=== PATIENT | female | born 1945 | race Caucasian/White ===

== ENCOUNTER → 2018-07-29 09:15 | Outpatient (CLI) | payer MEDICARE, SELFPAY ==
--- NOTE | 2018-07-29 09:20 | MM_ITS ---
MM Dig screening mamm BI w/CAD ORDERING PHYSICIAN : Blane Grullon MD PATIENT AGE: 72 years GENDER: Female COMPARISON: July INDICATION: ITS.REASON: SCREENING. No hormones. No new complaints. Pacemaker upper left breast. Patient reports significant weight loss since prior study. TECHNIQ UE: Standard CC and MLO images were obtained. R2 CAD reviewed. Additionalcc view axillary cc and nipple profile MLO view left breast FINDINGS: Moderately dense breasts for age but no significant new findings. RIGHT BREAST:No new areas of concern LEFT BREAST: Large Pacemaker device projected over the superior left breast. There is bulging of the chest and there is distort breast here. This feature makes positioning/breast imaging difficult but we see no significant change when compared to multiple studies. In the breast tissue is slightly more pronounced superior left breast] appears stable since prior studies. IMPRESSION: ... . Stable bilateral mammogram.. No significant new findings Pacemaker partially obscuring portions of the axillary tail of left breast but overall stable appearance BI-RADS Category: 2 Benign Finding(s) RECOMMENDED FOLLOW-UP: 1YR 1 YEAR FOLLOW-UP (A letter has been sent to the patient regarding results of the study.)
== END ==
PROVIDERS: PCP Family Medicine; Visit Provider Family Medicine
DX: Z12.31 Encounter for screening mammogram for malignant neoplasm of breast (principal)
CPT/HCPCS: 77067

== ENCOUNTER → 2018-09-13 15:42 | Outpatient (CLI) | payer MEDICARE, SELFPAY ==
--- NOTE | 2018-09-13 15:46 | XR_ITS ---
XR chest 2V HISTORY: Cough ITS.REASON: BRONCHITIS ORDERING PHYSICIAN: BEATRIZ Alvarez PATIENT AGE: 72 years COMPARISON: PA and lateral chest 09/30/2009 FINDINGS: The lung joseph are fairly well-expanded. There are stable gross generalized cardiomegaly. The left infraclavicular cardiac device is noted with 3 electrodes unchanged in position from the previous exam. There are subtle ill-defined opacities in the right lower lobe and right infrahilar region. A minimal pneumonic infiltrate cannot be excluded. The right lung field is clear. The left lung base is somewhat obscured by the overlying cardiac pacemaker however the left upper lung field is clear. IMPRESSION: Questionable right lower lobe bronchopneumonia versus confluence of vascular shadows and suggest clinical correlation
== END ==
PROVIDERS: PCP Family Medicine; Visit Provider Physician Assistant
DX: J40 Bronchitis, not specified as acute or chronic (principal)
CPT/HCPCS: 71046

== ENCOUNTER 2019-03-11 10:43 | Inpatient (IN) ==
--- NOTE | 2019-03-11 12:37 | Pharmacy Consult Notes ---
[facility] Pharmacy VTE Monitoring - Patient Demographics Admission date: 03/11/19 Report Date: 03/11/19 Time: 12:37 Allergies/Adverse Reactions: Patient Allergies aspirin Allergy (Severe, Verified 01/27/19 13:14) Difficulty Breathing iodine Allergy (Severe, Verified 01/27/19 13:14) Difficulty Breathing sulfite Allergy (Severe, Verified 01/27/19 13:14) Difficulty Breathing tolmetin Allergy (Severe, Verified 01/27/19 13:14) Difficulty Breathing yellow dye Allergy (Severe, Verified 01/27/19 13:14) Difficulty Breathing cephalexin Allergy (Unknown, Verified 01/27/19 13:14) Hives, Wheezing shellfish derived Allergy (Unknown, Verified 01/27/19 13:14) Difficulty Breathing Height: 1.55 m Weight: 56.387 kg - VTE Risk Was VTE Risk Assessment Performed: No VTE Score: 4 VTE Risk Level: Low Risk - Prophylaxis VTE Prophylaxis Ordered?: Yes Types of VTE Prophylaxis: TEDS Knee High Location of Applied Device: Bilateral Lower Extremeties - VTE Diagnosis Confirmed Treatment or plan recommended: Continue Current Treatment
--- NOTE | 2019-03-11 12:38 | History & Physical Report ---
*Admission Date: 03/11/19 <Olivia Marin 03/11/19 12:53> *Chief complaint: Frequent urination with burning; fever <Olivia Marin 03/11/19 12:53> *History of present illness: Ms. Dorman is a 73-year-old female who has not been feeling well for the past 3 days. On 622 she began to have frequent urination in small amounts with burning and a small amount of hematuria. She then developed a fever. She stayed in the bed and has slept almost continuously for the past 2 days. She has not been eating and drinking very well. She feels as if her bladder is hanging out. She has an appointment with Dr. Ramirez for exam in 2 weeks. That she presented to [facility] evaluation. With exam in the office patient was found to be dehydrated and with a fever. She is shaking and chilling. UA revealed UTI. She was also seen by Dr. Curiel and the decision was made to admit her to [facility] for IV antibiotics, fever control, IV fluids, and lab work. <Olivia Marin 03/11/19 12:53> [facility] History Medical History: Reports:: Asthma, Cardiomyopathy, Congestive Heart Failure, Depression, Diabetes Mellitus Type 2 (iddm), Gastroesophageal Reflux Disease(GERD), Hyperlipidemia, Hypertension, Internal Pacemaker, Lung Disease (asthma), Supraventricular Tachycardia, Urinary Tract Infection Denies:: Diabetes Mellitus Type 1, Seizures <Olivia Marin 03/11/19 12:53> *Have you ever received a pneumonia vaccine?: Yes <Olivia Marin 03/11/19 12:53> *Have you received a flu vaccine this season?: Yes <Olivia Marin 03/11/19 12:53> Other Medical History: Reports: Anemia, Hypothyroidism, Thyroid Disease <MarinOlivia 03/11/19 12:53> Comment:: Portal hypertension with abdominal varices; none alcoholic cirrhosis <TomasOlivia 03/11/19 12:53> Laterality Cases: Left: Total Hip Replacement, Bilateral: Arthroscopy Hip <MarinOlivia 03/11/19 12:53> Other Surgeries: Yes: Cardiac Catheterization, Pacemaker, Tubal Ligation <MarinOlivia 03/11/19 12:53> - *Social History Smoking Status: Never smoker <Olivia Marin 03/11/19 12:53> Alcohol Intake: never <Olivia Mairn 03/11/19 12:53> *Occupational Status:: retired <Olivia Marin 03/11/19 12:53> Household Members: spouse <Olivia Marin 03/11/19 12:53> *Travel in the last 8 weeks: None <Olivia Marin 03/11/19 12:53> - Psychiatric History Expresses thoughts of harming self/others: None <Olivia Marin 03/11/19 12:53> Suicide Plan Description: No Plan <Olivia Marin 03/11/19 12:53> Family Hx:: Asthma, Cancer, Coronary Artery Disease, Diabetes, Hypertension <Olivia Marin 03/11/19 12:53> Review of Systems - Constitutional Reports chills, Reports fever(s), Reports malaise <Sierra Marinhy 03/11/19 12:53> - ENT Denies ear pain, Denies sore throat <[facility] 03/11/19 12:53> - *Cardiovascular Reports shortness of breath, Denies chest pain <Sierra Marinhy 03/11/19 12:53> - *Respiratory Reports shortness of breath, Denies chest congestion, Denies cough, Denies wheezing <Sierra Marinhy 03/11/19 12:53> - *Gastrointestinal Reports abdominal pain (Burning), Reports nausea, Denies constipation, Denies loose stools, Denies vomiting <Sierra Marinhy 03/11/19 12:53> - *Genitourinary Reports painful urination, Reports blood in urine, Reports difficulty starting urination, Reports urinary urgency, Reports other (Prolapsed uterus) <Olivia Marin 03/11/19 12:53> - *Musculoskeletal Reports muscle weakness <Sierra Marinhy 03/11/19 12:53> - *Neurologic Denies abnormal speech, Denies confusion, Denies headache(s) <Olivia Marin 03/11/19 12:53> Meds Home Medications Medication Instructions Recorded Confirmed Type Albuterol Sulfate [Albuterol HFA 1 - 2 puffs IH Q4-6H PRN 01/28/19 03/11/19 History Inhaler] Carvedilol [Carvedilol 6.25mg Tab] 6.25 mg PO BID 01/28/19 03/11/19 History Digoxin [Digoxin 0.125mg Tablet] 125 mcg PO DAILY 01/28/19 03/11/19 History Furosemide [Lasix 40mg tab] 40 mg PO DAILY 01/28/19 03/11/19 History Insulin Aspart [Novolog Flexpen] 6 - 8 unit SQ DAILY 01/28/19 03/11/19 History Insulin Glargine,Hum.rec.anlog 20 unit SQ HS 01/28/19 03/11/19 History [Toujeo Solostar] Levothyroxine Sodium 88 mcg PO DAILY 01/28/19 03/11/19 History [Levothyroxine 88mcg (0.088mg) Tab] Linagliptin [Tradjenta 5mg tablet] 5 mg PO DAILY 01/28/19 03/11/19 History Mometasone Furoate [Nasonex] 17 gm NS HS 01/28/19 03/11/19 History RX: Glimepiride 4 mg PO DAILY 01/28/19 03/11/19 History RX: Spironolactone 25 mg PO DAILY 01/28/19 03/11/19 History Theophylline Anhydrous 400 mg PO TID 01/28/19 03/11/19 History [Theophylline] guaiFENesin [Mucinex] 1,200 mg PO NEEDED PRN 01/28/19 03/11/19 History predniSONE [Deltasone 2.5mg 2.5 mg PO DAILY 01/28/19 03/11/19 History tab] Cetirizine HCl [Allergy Relief] 10 mg PO DAILY 03/11/19 03/11/19 History <Jenners,Dylan - 03/11/19 13:43> Allergies Allergy/AdvReac Type Severity Reaction Status Date / Time aspirin Allergy Severe Difficulty Verified 01/27/19 13:14 Breathing iodine Allergy Severe Difficulty Verified 01/27/19 13:14 Breathing sulfite Allergy Severe Difficulty Verified 01/27/19 13:14 Breathing tolmetin Allergy Severe Difficulty Verified 01/27/19 13:14 Breathing yellow dye Allergy Severe Difficulty Verified 01/27/19 13:14 Breathing cephalexin Allergy Unknown Hives, Verified 01/27/19 13:14 Wheezing shellfish derived Allergy Unknown Difficulty Verified 01/27/19 13:14 Breathing <JennersDylan - 03/11/19 13:43> Exam Vital signs and Labs for Last 24 Hours: Temp Pulse Resp BP Pulse Ox 99.3 F 47 L 22 105/46 L 95 03/11/19 11:12 03/11/19 11:12 03/11/19 11:12 03/11/19 11:12 03/11/19 11:12 Laboratory Results - last 24 hr 03/11/19 12:40: WBC 11.4 H, RBC 4.40, Hgb 12.7, Hct 39.2, MCV 89.2, MCH 28.8, MCHC 32.2, RDW 15.8, Plt Count 112 L, MPV 8.4, Neut % (Auto) 77.2, Lymph % (Auto) 14.9, Kay % (Auto) 6.1, Eos % (Auto) 1.4, Baso % (Auto) 0.3, Neut # (Auto) 8.8 H, Lymph # (Auto) 1.7, Kay # (Auto) 0.7, Eos # (Auto) 0.2, Baso # (Auto) 0.0 03/11/19 12:40: Sodium 134 L, Potassium 3.9, Chloride 101, Carbon Dioxide 21, Anion Gap 15.9 H, BUN 18, Creatinine 1.13 H, Estimated Creat Clear 39, Estimated GFR 47 L, Est GFR ( Amer) 57 L, Glucose 262 H, Calcium 8.1 L, Total Bilirubin 3.2 H, AST 60 H, ALT 54, Alkaline Phosphatase 113, Total Protein 6.2 L , Albumin 2.7 L, Globulin 3.5 H, Albumin/Globulin Ratio 0.8 L 03/11/19 12:55: Urine Color Yellow, Urine Appearance Sl cloudy, Urine pH 5.5, Ur Specific [place] 1.015, Urine Protein Negative, Urine Glucose (UA) Negative, Urine Ketones Negative, Urine Blood Trace-i, Urine Nitrate Negative, Urine Bilirubin Negative, Urine Urobilinogen 0.2, Ur Leukocyte Esterase 1+ A, Urine RBC Occasional, Urine WBC 20-50, Ur Squamous Epith Cells 3-5, Urine Bacteria 1+, Urine Mucus 1+ <Dylan Curiel - 03/11/19 13:43> Temp Pulse Resp BP Pulse Ox 99.3 F 47 L 22 105/46 L 95 03/11/19 11:12 03/11/19 11:12 03/11/19 11:12 03/11/19 11:12 03/11/19 11:12 <Olivia Marin 03/11/19 12:53> I & O for Last 24 hours: Intake & Output 03/08/19 03/09/19 03/10/19 03/11/19 23:59 23:59 23:59 23:59 Intake Total 240 / 240 Balance 240 / 240 Weight 124 lb 5 oz <Dylan Curiel - 03/11/19 13:43> Intake & Output 03/09/19 03/10/19 03/11/19 03/12/19 11:59 11:59 11:59 11:59 Weight 124 lb 5 oz <Olivia Marin 03/11/19 12:53> - Constitutional no acute distress, thin <Olivia Marin 03/11/19 12:53> Comments: Appears not to feel well. Shaking with chills. <Olivia Marin 03/11/19 12:53> - *Routine HEENT Exam Head: Present: normocephalic, atraumatic <Olivia Marin 03/11/19 12:53> Eye: Present: PERRL. Absent: conjunctival icterus, scleral injection <Olivia Marin 03/11/19 12:53> ENT: Present: mucous membranes dry, oropharynx clear, nares patent <Olivia Marin 03/11/19 12:53> - *Routine Neck Exam Present: supple. Absent: carotid bruit, lymphadenopathy, thyromegaly <Olivia Marin 03/11/19 12:53> - *Routine Respiratory Exam Present: CTA bilaterally (Anteriorly and posteriorly) <Olivia Marin 03/11/19 12:53> - *Routine Cardiovascular Exam Present: RRR <Olivia Marin 03/11/19 12:53> - *Routine Abdominal Exam Present: soft, normoactive bowel sounds. Absent: tenderness, guarding <Olivia Marin - 03/11/19 12:53> Comments: Abdominal varices. Pelvic reveals prolapsing uterus <Olivia Marin - 03/11/19 12:53> - *Routine Extremities Exam Absent: edema, calf tenderness <Olivia Marin - 03/11/19 12:53> Assessment and Plan (1) Urinary tract infection Current visit: Yes Status: Acute Category: Medical Code(s): N39.0 - Urinary tract infection, site not specified (2) Fever Current visit: Yes Status: Acute Category: Medical Code(s): R50.9 - Fever, unspecified (3) Prolapsed uterus Current visit: Yes Status: Chronic Category: Medical Code(s): N81.4 - Uterovaginal prolapse, unspecified (4) Type 2 diabetes mellitus Current visit: Yes Status: Chronic Category: Medical Code(s): E11.9 - Type 2 diabetes mellitus without complications (5) Asthma Current visit: Yes Status: Chronic Category: Medical Code(s): J45.909 - Unspecified asthma, uncomplicated (6) Dilated cardiomyopathy Current visit: Yes Status: Chronic Category: Medical Code(s): I42.0 - Dil ated cardiomyopathy (7) Renal insufficiency Current visit: Yes Status: Acute Category: Medical Code(s): N28.9 - Disorder of kidney and ureter, unspecified <Dylan Curiel - 03/11/19 13:43> (1) Urinary tract infection Current visit: Yes Status: Acute Category: Medical Code(s): N39.0 - Urinary tract infection, site not specified (2) Fever Current visit: Yes Status: Acute Category: Medical Code(s): R50.9 - Fever, unspecified (3) Prolapsed uterus Current visit: Yes Status: Chronic Category: Medical Code(s): N81.4 - Uterovaginal prolapse, unspecified (4) Type 2 diabetes mellitus Current visit: Yes Status: Chronic Category: Medical Code(s): E11.9 - Type 2 diabetes mellitus without complications (5) Asthma Current visit: Yes Status: Chronic Category: Medical Code(s): J45.909 - Unspecified asthma, uncomplicated (6) Dilated cardiomyopathy Current visit: Yes Status: Chronic Category: Medical Code(s): I42.0 - Dilated cardiomyopathy <Olivia Marin - 03/11/19 12:33> - Assessment and plan all Dx Assessment and Plan for all problems:: Saw patient, agree with above note. <Dylan Curiel - 03/11/19 13:43> Patient has been admitted to acute care. She will receive a bolus of IV fluids. She will be started on a Invanz, sliding scale with insulin, and will have labs and chest x-ray done. See orders for ordered home meds. <Olivia Marin - 03/11/19 12:53>
[2019-03-11 13:07] LABS: Microscopic, Urine URINE MICROSCOPIC (MICROSCOPIC)
[2019-03-11 13:09] LABS: Appearance,Urine SL CLOUDY (Clear); Bilirubin,Urine Negative (Negative); Blood, Urine TRACE-I (Negative); Color,Urine YELLOW (Yellow); Glucose,Urine (UA) Negative (Negative); Ketones,Urine Negative (Negative); Leukocyte Esterase,Urine 1+ (Negative); PH,Urine 5.5 (5.0-8.5); Protein,Urine Negative (Negative); Specific Gravity, Urine 1.015 (1.005-1.030); Urobilinogen,Urine 0.2 EU/dl (0.2)
[2019-03-11 13:09] LABS: Basophils % 0.3 % (0.1-2.0); Eosinophils # 0.2 K/mm3 (0.0-0.4); Eosinophils % 1.4 % (0.1-12.0); Hematocrit 39.2 % (37.0-47.0); Hemoglobin 12.7 g/dL (12.2-16.2); Lymphocytes # 1.7 K/mm3 (0.7-4.5); Lymphocytes % 14.9 % (10-50); Mean Corpuscular HGB Conc 32.2 g/dL (31.8-35.4); Mean Corpuscular Volume 89.2 fl (81-99); Mean Platelet Volume 8.4 fl (7.4-10.4); Monocytes # 0.7 K/mm3 (0.1-1.0); Monocytes % 6.1 % (1.7-9.3); Neutrophils # 8.8 K/mm3 (1.8-7.8); Neutrophils % 77.2 % (37.0-80.0); Platelet Count 112 K/mm3 (142-424); Red Cell Distribution Width 15.8 % (11.5-17.5); White Blood Count 11.4 K/mm3 (4.8-10.8)
[2019-03-11 13:12] LABS: Albumin Level 2.7 gm/dL (3.4-5.0); Anion Gap 15.9 mEq/L (5-15); Bilirubin,Total 3.2 mg/dL (0.2-1.0); Calcium 8.1 mg/dL (8.5-10.1); Total Protein,Serum 6.2 gm/dL (6.4-8.2)
[2019-03-11 13:13] LABS: Albumin/Globulin Ratio 0.8 (1.1-1.8); Globulin 3.5 gm/dl (1.3-3.2)
[2019-03-11 13:26] LABS: Bacteria,Urine 1+ /lpf; Mucus,Urine 1+ /lpf; RBC,Urine Occasional #/hpf (0-3); WBC,Urine 20-50 #/hpf (0-3)
--- NOTE | 2019-03-11 17:14 | Consult Report ---
[employer] - CN: HPI - Data of Consult Patient: known to practice within the last 3 years Requesting Physician: Dylan Curiel MD Primary Care Provider: Dylan Curiel MD - Consult Narrative Reason for consult: other History of present illness: Ms. Dorman is a 73 year old female Who complains of a 2-year history of pelvic organ prolapse. She has seen me in the practice couple of years ago and we tried a pessary however it fell out. She did not return for a trial of a different pessary. She is admitted with a possible urinary tract infection. CC: Dylan Curiel MD Review of Systems - Review of Systems Review of systems:: pertinent systems reviewed and negative unless documented below - *Neurologic Denies abnormal speech, Denies confusion, Denies headache(s) [facility] History I have reviewed the patient's past medical history: Yes Medical History: Reports:: Asthma, Cardiomyopathy, Congestive Heart Failure, Depression, Diabetes Mellitus Type 2 (iddm), Gastroesophageal Reflux Disease(GERD), Hyperlipidemia, Hypertension, Internal Pacemaker, Lung Disease (asthma), Supraventricular Tachycardia, Urinary Tract Infection Denies:: Diabetes Mellitus Type 1, Seizures *Have you ever received a pneumonia vaccine?: Yes *Have you received a flu vaccine this season?: Yes Other Medical History: Reports: Anemia, Hypothyroidism, Thyroid Disease Laterality Cases: Left: Total Hip Replacement, Bilateral: Arthroscopy Hip Other Surgeries: Yes: Cardiac Catheterization, Pacemaker, Tubal Ligation - *Social History Smoking Status: Never smoker Alcohol Intake: never *Occupational Status:: retired Household Members: spouse *Travel in the last 8 weeks: None - Psychiatric History Expresses thoughts of harming self/others: None Suicide Plan Description: No Plan Pschychiatric History:: Reports:: Depression Family Hx:: Asthma, Cancer, Coronary Artery Disease, Diabetes, Hypertension Meds Home Medications Medication Instructions Recorded Confirmed Type Albuterol Sulfate [Albuterol HFA 1 - 2 puffs IH Q4-6H PRN 01/28/19 03/11/19 History Inhaler] Carvedilol [Carvedilol 6.25mg Tab] 6.25 mg PO BID 01/28/19 03/11/19 History Digoxin [Digoxin 0.125mg Tablet] 125 mcg PO DAILY 01/28/19 03/11/19 History Furosemide [Lasix 40mg tab] 40 mg PO DIRECTED 01/28/19 03/11/19 History Glimepiride 8 mg PO DAILY 01/28/19 03/11/19 History Insulin Aspart [Novolog Flexpen] 6 - 8 unit SQ DAILY 01/28/19 03/11/19 History Insulin Glargine,Hum.rec.anlog 20 unit SQ HS 01/28/19 03/11/19 History [Toujeo Solostar] Levothyroxine Sodium 88 mcg PO DAILY 01/28/19 03/11/19 History [Levothyroxine 88mcg (0.088mg) Tab] Linagliptin [Tradjenta 5mg tablet] 5 mg PO DAILY 01/28/19 03/11/19 History Mometasone Furoate [Nasonex] 17 gm NS HS 01/28/19 03/11/19 History Spironolactone 25 mg PO DIRECTED 01/28/19 03/11/19 History Theophylline Anhydrous 200 mg PO TID 01/28/19 03/11/19 History [Theophylline] guaiFENesin [Mucinex] 1,200 mg PO NEEDED PRN 01/28/19 03/11/19 History predniSONE [Deltasone 2.5mg 2.5 mg PO DAILY 01/28/19 03/11/19 History tab] Cetirizine HCl [Allergy Relief] 10 mg PO DAILY 03/11/19 03/11/19 History Allergies Allergy/AdvReac Type Severity Reaction Status Date / Time aspirin Allergy Severe Difficulty Verified 01/27/19 13:14 Breathing iodine Allergy Severe Difficulty Verified 01/27/19 13:14 Breathing sulfite Allergy Severe Difficulty Verified 01/27/19 13:14 Breathing tolmetin Allergy Severe Difficulty Verified 01/27/19 13:14 Breathing yellow dye Allergy Severe Difficulty Verified 01/27/19 13:14 Breathing cephalexin Allergy Unknown Hives, Verified 01/27/19 13:14 Wheezing shellfish derived Allergy Unknown Difficulty Verified 01/27/19 13:14 Breathing [employer] - Exam Vital signs: Temp Pulse Resp BP Pulse Ox 98.7 F 100 H 15 101/58 L 99 03/11/19 16:00 03/11/19 16:00 03/11/19 16:00 03/11/19 16:00 03/11/19 16:00 - Constitutional no acute distress - Routine HEENT Exam Head: Present: normocephalic Eye: Present: EOMI, PERRL ENT: Present: mucous membranes moist - Routine Neck Exam Present: supple, full ROM - Routine Cardiovascular Exam Present: irregular rhythm. Absent: murmur - Routine Abdominal Exam Present: soft. Absent: tenderness, distended, rebound, guarding [employer] - Results - Labs CBC & Chem 7: 03/11/19 12:40 03/11/19 12:40 Labs: Short CBC 03/11/19 Range/Units 12:40 WBC 11.4 H (4.8-10.8) K/mm3 Hgb 12.7 (12.2-16.2) g/dL Hct 39.2 (37.0-47.0) % Plt Count 112 L (142-424) K/mm3 BMP 03/11/19 12:40 Sodium 134 L Potassium 3.9 Chloride 101 Carbon Dioxide 21 BUN 18 Creatinine 1.13 H Glucose 262 H Calcium 8.1 L Liver Function 03/11/19 Range/Units 12:40 Total Bilirubin 3.2 H (0.2-1.0) mg/dL AST 60 H (15-37) U/L ALT 54 (12-78) U/L Alkaline Phosphatase 113 (46-116) U/L Albumin 2.7 L (3.4-5.0) gm/dL Urine 03/11/19 Range/Units 12:55 Urine Color Yellow (Yellow) Urine Appearance Sl cloudy (Clear) Urine pH 5.5 (5.0-8.5) Ur Specific [place] 1.015 (1.005-1.030) Urine Protein Negative (Negative) Urine Glucose (UA) Negative (Negative) Assessment and Plan (1) Urinary tract infection Current visit: Yes Status: Acute Category: Medical Code(s): N39.0 - U rinary tract infection, site not specified (2) Fever Current visit: Yes Status: Acute Category: Medical Code(s): R50.9 - Fever, unspecified (3) Prolapsed uterus Current visit: Yes Status: Chronic Category: Medical Code(s): N81.4 - Uterovaginal prolapse, unspecified (4) Type 2 diabetes mellitus Current visit: Yes Status: Chronic Category: Medical Code(s): E11.9 - Type 2 diabetes mellitus without complications (5) Asthma Current visit: Yes Status: Chronic Category: Medical Code(s): J45.909 - Unspecified asthma, uncomplicated (6) Dilated cardiomyopathy Current visit: Yes Status: Chronic Category: Medical Code(s): I42.0 - Dilated cardiomyopathy (7) Renal insufficiency Current visit: Yes Status: Acute Category: Medical Code(s): N28.9 - Disorder of kidney and ureter, unspecified - Assessment and plan all Dx Assessment and Plan for all problems:: We will make arrangements for her to follow-up with us in the office when she is discharged from her current hospitalization. We will try and fit her for a pessary at that time. She really is not a good candidate for surgery given her cardiac history and history of pacemaker. Thank you very much for allowing me to share in the care of your patient
[2019-03-12 06:26] LABS: Basophils % 0.4 % (0.1-2.0); Eosinophils # 0.4 K/mm3 (0.0-0.4); Hematocrit 35.2 % (37.0-47.0); Hemoglobin 11.5 g/dL (12.2-16.2); Lymphocytes # 1.7 K/mm3 (0.7-4.5); Lymphocytes % 20.2 % (10-50); Mean Corpuscular HGB Conc 32.7 g/dL (31.8-35.4); Mean Corpuscular Volume 89.3 fl (81-99); Mean Platelet Volume 9.6 fl (7.4-10.4); Monocytes # 0.7 K/mm3 (0.1-1.0); Monocytes % 8.9 % (1.7-9.3); Neutrophils # 5.4 K/mm3 (1.8-7.8); Neutrophils % 65.5 % (37.0-80.0); Platelet Count 94 K/mm3 (142-424); Red Blood Count 3.94 M/mm3 (4.20-5.40); Red Cell Distribution Width 15.9 % (11.5-17.5); White Blood Count 8.2 K/mm3 (4.8-10.8)
[2019-03-12 06:31] LABS: Anion Gap 13.4 mEq/L (5-15); Calcium 7.8 mg/dL (8.5-10.1)
--- NOTE | 2019-03-12 08:00 | Progress Note ---
<Olivia Marin - Last Filed: 03/12/19 07:56> Internal Medicine - PN: Subj *Date: 03/12/19 *Time: 07:56 Interval history: Patient is feeling better this morning. She is voiding with less difficulty and without burning and pressure. She is ambulated to the bathroom with 1 assist. She denies chest pain and shortness of breath. Does have some lower posterior chest discomfort with movement. She denies chest pain and shortness of breath. She is eating without problems. Bowels have moved. White blood cell count has normalized. Potassium is a little low at 3.4. Function is normalized. Blood culture PCR shows strep agalactiae but is not finalized as yet. Exam Vital signs and Labs for Last 24 Hours: Temp Pulse Resp BP Pulse Ox 98.3 F 91 H 17 111/58 L 93 L 03/12/19 07:44 03/12/19 07:44 03/12/19 07:44 03/12/19 07:44 03/12/19 07:44 Laboratory Results - last 24 hr 03/11/19 12:40: WBC 11.4 H, RBC 4.40, Hgb 12.7, Hct 39.2, MCV 89.2, MCH 28.8, MCHC 32.2, RDW 15.8, Plt Count 112 L, MPV 8.4, Neut % (Auto) 77.2, Lymph % (Auto) 14.9, Potter % (Auto) 6.1, Eos % (Auto) 1.4, Baso % (Auto) 0.3, Neut # (Auto) 8.8 H, Lymph # (Auto) 1.7, Potter # (Auto) 0.7, Eos # (Auto) 0.2, Baso # (Auto) 0.0 03/11/19 12:40: Sodium 134 L, Potassium 3.9, Chloride 101, Carbon Dioxide 21, Anion Gap 15.9 H, BUN 18, Creatinine 1.13 H, Estimated Creat Clear 39, Estimated GFR 47 L, Est GFR ( Amer) 57 L, Glucose 262 H, Calcium 8.1 L, Total Bilirubin 3.2 H, AST 60 H, ALT 54, Alkaline Phosphatase 113, Total Protein 6.2 L , Albumin 2.7 L, Globulin 3.5 H, Albumin/Globulin Ratio 0.8 L 03/11/19 12:55: Urine Color Yellow, Urine Appearance Sl cloudy, Urine pH 5.5, Ur Specific Warren 1.015, Urine Protein Negative, Urine Glucose (UA) Negative, Urine Ketones Negative, Urine Blood Trace-i, Urine Nitrate Negative, Urine B ilirubin Negative, Urine Urobilinogen 0.2, Ur Leukocyte Esterase 1+ A, Urine RBC Occasional, Urine WBC 20-50, Ur Squamous Epith Cells 3-5, Urine Bacteria 1+, Urine Mucus 1+ 03/11/19 16:18: POC Glucose 292 H 03/11/19 20:12: POC Glucose 183 H 03/12/19 05:25: Sodium 138, Potassium 3.4 L, Chloride 106, Carbon Dioxide 22, Anion Gap 13.4, BUN 19 H, Creatinine 0.89 D, Estimated Creat Clear 45, Estimated GFR 62, Est GFR ( Amer) 75 D, Glucose 97 D, Calcium 7.8 L 03/12/19 05:28: WBC 8.2 D, RBC 3.94 L, Hgb 11.5 L, Hct 35.2 L, MCV 89.3, MCH 29.3, MCHC 32.7, RDW 15.9, Plt Count 94 L, MPV 9.6, Neut % (Auto) 65.5, Lymph % (Auto) 20.2, Potter % (Auto) 8.9, Eos % (Auto) 5.0, Baso % (Auto) 0.4, Neut # (Auto) 5.4, Lymph # (Auto) 1.7, Potter # (Auto) 0.7, Eos # (Auto) 0.4, Baso # (Auto) 0.0 03/12/19 05:38: POC Glucose 95 I & O for Last 24 hours: Intake & Output 03/09/19 03/10/19 03/11/19 03/12/19 11:59 11:59 11:59 11:59 Intake Total 2817 / 2817 Output Total 1300 / 1300 Balance 1517 / 1517 Weight 124 lb 5 oz 124 lb 8 oz Microbiology Reports for the Last 24 Hours: Microbiology 03/11/19 12:55 Urine,Clean Catch Urine Culture - Preliminary 03/11/19 13:12 Blood Blood Culture - Preliminary 03/11/19 12:40 Blood Blood Culture - Preliminary Radiology Reports for the Last 24 Hours: 03/11/2019 chest x-ray IMPRESSION: No change and no acute process. - Constitutional no acute distress Comments: Sitting on bedside her breakfast. She appears comfortable and as though she feels better. She is very alert. - *Routine Respiratory Exam Comments: Bilateral expiratory wheezing throughout. - *Routine Cardiovascular Exam Present: RRR, murmur - *Routine Abdominal Exam Present: soft, normoactive bowel sounds. Absent: tenderness - *Routine Extremities Exam Absent: edema, calf tenderness - *Routine Neurological Exam Present: alert, oriented X3 Assessment and Plan (1) Urinary tract infection Current visit: Yes Status: Acute Category: Medical Code(s): N39.0 - Urinary tract infection, site not specified (2) Fever Current visit: Yes Status: Acute Category: Medical Code(s): R50.9 - Fever, unspecified (3) Prolapsed uterus Current visit: Yes Status: Chronic Category: Medical Code(s): N81.4 - Uterovaginal prolapse, unspecified (4) Type 2 diabetes mellitus Current visit: Yes Status: Chronic Category: Medical Code(s): E11.9 - Type 2 diabetes mellitus without complications (5) Asthma Current visit: Yes Status: Chronic Category: Medical Code(s): J45.909 - U nspecified asthma, uncomplicated (6) Dilated cardiomyopathy Current visit: Yes Status: Chronic Category: Medical Code(s): I42.0 - Dilated cardiomyopathy (7) Renal insufficiency Current visit: Yes Status: Acute Category: Medical Code(s): N28.9 - Disorder of kidney and ureter, unspecified - Assessment and plan all Dx Assessment and Plan for all problems:: Start scheduled albuterol inhaler. We will continue with IV fluids with potassium and antibiotics. Dr. Gamez's note appreciated. We will start back on some of her diabetic medicines. <Dylan Curiel - Last Filed: 03/12/19 08:48> Internal Medicine - PN: Subj *Date: 03/12/19 *Time: 08:48 Exam Vital signs and Labs for Last 24 Hours: Temp Pulse Resp BP Pulse Ox 98.3 F 80 17 111/58 L 93 L 03/12/19 07:44 03/12/19 08:29 03/12/19 07:44 03/12/19 07:44 03/12/19 07:44 Laboratory Results - last 24 hr 03/11/19 12:40: WBC 11.4 H, RBC 4.40, Hgb 12.7, Hct 39.2, MCV 89.2, MCH 28.8, MCHC 32.2, RDW 15.8, Plt Count 112 L, MPV 8.4, Neut % (Auto) 77.2, Lymph % (Auto) 14.9, Potter % (Auto) 6.1, Eos % (Auto) 1.4, Baso % (Auto) 0.3, Neut # (Auto) 8.8 H, Lymph # (Auto) 1.7, Potter # (Auto) 0.7, Eos # (Auto) 0.2, Baso # (Auto) 0.0 03/11/19 12:40: Sodium 134 L, Potassium 3.9, Chloride 101, Carbon Dioxide 21, Anion Gap 15.9 H, BUN 18, Creatinine 1.13 H, Estimated Creat Clear 39, Estimated GFR 47 L, Est GFR ( Amer) 57 L, Glucose 262 H, Calcium 8.1 L, Total Bilirubin 3.2 H, AST 60 H, ALT 54, Alkaline Phosphatase 113, Total Protein 6.2 L , Albumin 2.7 L, Globulin 3.5 H, Albumin/Globulin Ratio 0.8 L 03/11/19 12:55: Urine Color Yellow, Urine Appearance Sl cloudy, Urine pH 5.5, Ur Specific Warren 1.015, Urine Protein Negative, Urine Glucose (UA) Negative, Urine Ketones Negative, Urine Blood Trace-i, Urine Nitrate Negative, Urine Bilirubin Negative, Urine Urobilinogen 0.2, Ur Leukocyte Esterase 1+ A, Urine RBC Occasional, Urine WBC 20-50, Ur Squamous Epith Cells 3-5, Urine Bacteria 1+, Urine Mucus 1+ 03/11/19 16:18: POC Glucose 292 H 03/11/19 20:12: POC Glucose 183 H 03/12/19 05:25: Sodium 138, Potassium 3.4 L, Chloride 106, Carbon Dioxide 22, Anion Gap 13.4, BUN 19 H, Creatinine 0.89 D, Estimated Creat Clear 45, Estimated GFR 62, Est GFR ( Amer) 75 D, Glucose 97 D, Calcium 7.8 L 03/12/19 05:28: WBC 8.2 D, RBC 3.94 L, Hgb 11.5 L, Hct 35.2 L, MCV 89.3, MCH 29.3, MCHC 32.7, RDW 15.9, Plt Count 94 L, MPV 9.6, Neut % (Auto) 65.5, Lymph % (Auto) 20.2, Potter % (Auto) 8.9, Eos % (Auto) 5.0, Baso % (Auto) 0.4, Neut # (Auto) 5.4, Lymph # (Auto) 1.7, Potter # (Auto) 0.7, Eos # (Auto) 0.4, Baso # (Auto) 0.0 03/12/19 05:38: POC Glucose 95 I & O for Last 24 hours: Intake & Output 03/09/19 03/10/19 03/11/19 03/12/19 23:59 23:59 23:59 23:59 Intake Total 1480 / 1480 1337 / 1337 Output Total 600 / 600 700 / 700 Balance 880 / 880 637 / 637 Weight 124 lb 5 oz 124 lb 8 oz Microbiology Reports for the Last 24 Hours: Microbiology 03/11/19 12:55 Urine,Clean Catch Urine Culture - Preliminary 03/11/19 13:12 Blood Blood Culture - Preliminary 03/11/19 12:40 Blood Blood Culture - Preliminary Assessment and Plan (1) Urinary tract infection Current visit: Yes Status: Acute Category: Medical Code(s): N39.0 - Urinary tract infection, site not specified (2) Fever Current visit: Yes Status: Acute Category: Medical Code(s): R50.9 - Fever, unspecified (3) Prolapsed uterus Current visit: Yes Status: Chronic Category: Medical Code(s): N81.4 - Uterovaginal prolapse, unspecified (4) Type 2 diabetes mellitus Current visit: Yes Status: Chronic Category: Medical Code(s): E11.9 - Type 2 diabetes mellitus without complications (5) Asthma Current visit: Yes Status: Chronic Category: Medical Code(s): J45.909 - Unspecified asthma, uncomplicated (6) Dilated cardiomyopathy Current visit: Yes Status: Chronic Category: Medical Code(s): I42.0 - Dilated cardiomyopathy (7) Renal insufficiency Current visit: Yes Status: Acute Category: Medical Code(s): N28.9 - Disorder of kidney and ureter, unspecified - Assessment and plan all Dx Assessment and Plan for all problems:: Saw patient, agree with above note.
--- NOTE | 2019-03-13 08:25 | Progress Note ---
<Mamie Telles - Last Filed: 03/13/19 08:22> Internal Medicine - PN: Subj *Date: 03/13/19 *Time: 08:22 Interval history: Patient states she is feeling better today. She is less short of breath and denies any pain other than in her mid back. She denies any abdominal pain. She slept well last night and ate a good breakfast this morning. She wants to go home. Exam Vital signs and Labs for Last 24 Hours: Temp Pulse Resp BP Pulse Ox 97.2 F L 72 17 107/59 L 100 03/13/19 07:47 03/13/19 08:14 03/13/19 07:47 03/13/19 07:47 03/13/19 07:47 Laboratory Results - last 24 hr 03/12/19 11:05: POC Glucose 324 H* 03/12/19 16:52: POC Glucose 240 H 03/12/19 20:21: POC Glucose 281 H 03/13/19 04:03: POC Glucose 160 H 03/13/19 06:25: POC Glucose 133 H I & O for Last 24 hours: Intake & Output 03/10/19 03/11/19 03/12/19 03/13/19 11:59 11:59 11:59 11:59 Intake Total 2817 / 2817 1080 / 1080 Output Total 1300 / 1300 Balance 1517 / 1517 1080 / 1080 Weight 124 lb 5 oz 124 lb 8 oz 124 lb 3 oz Microbiology Reports for the Last 24 Hours: Microbiology 03/11/19 12:40 Blood Blood Culture - Preliminary 03/11/19 13:12 Blood Blood Culture - Preliminary 03/11/19 12:55 Urine,Clean Catch Urine Culture - Preliminary - Constitutional no acute distress - *Routine Respiratory Exam Present: wheezes (mild, improved) - *Routine Cardiovascular Exam Present: RRR - *Routine Abdominal Exam Present: soft, normoactive bowel sounds. Absent: tenderness - *Routine Extremities Exam Present: edema (bilateral LE). Absent: cyanosis, clubbing - *Routine Skin Exam Present: warm. Absent: rash - *Routine Neurological Exam Present: alert, oriented X3 Assessment and Plan (1) Urinary tract infection Current visit: Yes Status: Acute Category: Medical Code(s): N39.0 - Urinary tract infection, site not specified (2) Fever Current visit: Yes Status: Acute Category: Medical Code(s): R50.9 - Fever, unspecified (3) Prolapsed uterus Current visit: Yes Status: Chronic Category: Medical Code(s): N81.4 - Uterovaginal prolapse, unspecified (4) Type 2 diabetes mellitus Current visit: Yes Status: Chronic Category: Medical Code(s): E11.9 - Type 2 diabetes mellitus without complications (5) Asthma Current visit: Yes Status: Chronic Category: Medical Code(s): J45.909 - Unspecified asthma, uncomplicated (6) Dilated cardiomyopathy Current visit: Yes Status: Chronic Category: Medical Code(s): I42.0 - Dilated cardiomyopathy (7) Renal insufficiency Current visit: Yes Status: Acute Category: Medical Code(s): N28.9 - Disorder of kidney and ureter, unspecified - Assessment and plan all Dx Assessment and Plan for all problems:: Blood and urine cultures are still pending. Will continue current treatment and discuss further care with Dr. Curiel. <Dylan Curiel - Last Filed: 03/13/19 08:48> Internal Medicine - PN: Subj *Date: 03/13/19 *Time: 08:47 Exam Vital signs and Labs for Last 24 Hours: Temp Pulse Resp BP Pulse Ox 97.2 F L 72 17 107/59 L 100 03/13/19 07:47 03/13/19 08:14 03/13/19 07:47 03/13/19 07:47 03/13/19 07:47 Laboratory Results - last 24 hr 03/12/19 11:05: POC Glucose 324 H* 03/12/19 16:52: POC Glucose 240 H 03/12/19 20:21: POC Glucose 281 H 03/13/19 04:03: POC Glucose 160 H 03/13/19 06:25: POC Glucose 133 H I & O for Last 24 hours: Intake & Output 03/10/19 03/11/19 03/12/19 03/13/19 23:59 23:59 23:59 23:59 Intake Total 1480 / 1480 2056 / 2056 360 / 360 Output Total 600 / 600 700 / 700 Balance 880 / 880 1357 / 1357 360 / 360 Weight 124 lb 5 oz 124 lb 8 oz 124 lb 3 oz Microbiology Reports for the Last 24 Hours: Microbiology 03/11/19 12:40 Blood Blood Culture - Preliminary 03/11/19 13:12 Blood Blood Culture - Preliminary 03/11/19 12:55 Urine,Clean Catch Urine Culture - Preliminary Assessment and Plan (1) Urinary tract infection Current visit: Yes Status: Acute Category: Medical Code(s): N39.0 - Urinary tract infection, site not specified (2) Fever Current visit: Yes Status: Acute Category: Medical Code(s): R50.9 - Fever, unspecified (3) Prolapsed uterus Current visit: Yes Status: Chronic Category: Medical Code(s): N81.4 - Uterovaginal prolapse, unspecified (4) Type 2 diabetes mellitus Current visit: Yes Status: Chronic Category: Medical Code(s): E11.9 - Type 2 diabetes mellitus without complications (5) Asthma Current visit: Yes Status: Chronic Category: Medical Code(s): J45.909 - Unspecified asthma, uncomplicated (6) Dilated cardiomyopathy Current visit: Yes Status: Chronic Category: Medical Code(s): I42.0 - Dilated cardiomyopathy (7) Renal insufficiency Current visit: Yes Status: Acute Category: Medical Code(s): N28.9 - Disorder of kidney and ureter, unspecified - Assessment and plan all Dx Assessment and Plan for all problems:: Saw patient, agree with above note, await final blood culture results, cont. Invanz.
[2019-03-13 09:05] LABS: Basophils % 0.6 % (0.1-2.0); Eosinophils # 0.5 K/mm3 (0.0-0.4); Eosinophils % 6.7 % (0.1-12.0); Hematocrit 35.7 % (37.0-47.0); Hemoglobin 11.7 g/dL (12.2-16.2); Lymphocytes # 1.5 K/mm3 (0.7-4.5); Lymphocytes % 21.9 % (10-50); Mean Corpuscular HGB Conc 32.7 g/dL (31.8-35.4); Mean Corpuscular Volume 87.4 fl (81-99); Mean Platelet Volume 9.5 fl (7.4-10.4); Monocytes # 0.6 K/mm3 (0.1-1.0); Monocytes % 8.3 % (1.7-9.3); Neutrophils # 4.3 K/mm3 (1.8-7.8); Neutrophils % 62.5 % (37.0-80.0); Platelet Count 106 K/mm3 (142-424); Red Blood Count 4.09 M/mm3 (4.20-5.40); Red Cell Distribution Width 15.7 % (11.5-17.5); White Blood Count 6.9 K/mm3 (4.8-10.8)
[2019-03-13 09:34] LABS: Albumin Level 2.4 gm/dL (3.4-5.0); Albumin/Globulin Ratio 0.7 (1.1-1.8); Anion Gap 13.8 mEq/L (5-15); Bilirubin,Total 1.7 mg/dL (0.2-1.0); Calcium 8.1 mg/dL (8.5-10.1); Globulin 3.3 gm/dl (1.3-3.2); Total Protein,Serum 5.7 gm/dL (6.4-8.2)
[2019-03-14 06:17] LABS: Basophils % 0.7 % (0.1-2.0); Eosinophils # 0.4 K/mm3 (0.0-0.4); Eosinophils % 7.8 % (0.1-12.0); Hematocrit 33.7 % (37.0-47.0); Hemoglobin 10.9 g/dL (12.2-16.2); Lymphocytes # 1.3 K/mm3 (0.7-4.5); Lymphocytes % 23.5 % (10-50); Mean Corpuscular HGB Conc 32.2 g/dL (31.8-35.4); Mean Platelet Volume 9.3 fl (7.4-10.4); Monocytes # 0.5 K/mm3 (0.1-1.0); Monocytes % 8.2 % (1.7-9.3); Neutrophils # 3.3 K/mm3 (1.8-7.8); Neutrophils % 59.8 % (37.0-80.0); Platelet Count 116 K/mm3 (142-424); Red Blood Count 3.79 M/mm3 (4.20-5.40); White Blood Count 5.5 K/mm3 (4.8-10.8)
[2019-03-14 06:37] LABS: Anion Gap 11.8 mEq/L (5-15); Calcium 7.9 mg/dL (8.5-10.1)
[2019-03-14 07:40] VITALS: BP 111/61
--- NOTE | 2019-03-14 08:12 | Progress Note ---
<Mamie Telles - Last Filed: 03/14/19 08:10> Internal Medicine - PN: Subj *Date: 03/14/19 *Time: 08:10 Interval history: Patient states she is feeling well this morning. She still has some pain across her mid back. She denies any abdominal pain. She slept well and is eating well and moving about her room. She is anxious to go home. Exam Vital signs and Labs for Last 24 Hours: Temp Pulse Resp BP Pulse Ox 98.2 F 73 16 111/61 100 03/14/19 07:39 03/14/19 07:39 03/14/19 07:39 03/14/19 07:39 03/14/19 07:39 Laboratory Results - last 24 hr 03/11/19 12:55: Urine Color Yellow, Urine Appearance Sl cloudy, Urine pH 5.5, Ur Specific Sherman 1.015, Urine Protein Negative, Urine Glucose (UA) Negative, Urine Ketones Negative, Urine Blood Trace-i, Urine Nitrate Negative, Urine Bilirubin Negative, Urine Urobilinogen 0.2, Ur Leukocyte Esterase 1+ A, Urine RBC Occasional, Urine WBC 20-50, Ur Squamous Epith Cells 3-5, Urine Bacteria 1+, Urine Mucus 1+ 03/13/19 08:48: WBC 6.9, RBC 4.09 L, Hgb 11.7 L, Hct 35.7 L, MCV 87.4, MCH 28.6, MCHC 32.7, RDW 15.7, Plt Count 106 L, MPV 9.5, Neut % (Auto) 62.5, Lymph % (Auto) 21.9, Forest % (Auto) 8.3, Eos % (Auto) 6.7, Baso % (Auto) 0.6, Neut # (Auto) 4.3, Lymph # (Auto) 1.5, Forest # (Auto) 0.6, Eos # (Auto) 0.5 H, Baso # (Auto) 0.0 03/13/19 08:48: Sodium 137, Potassium 3.8, Chloride 107, Carbon Dioxide 20 L, A nion Gap 13.8, BUN 19 H, Creatinine 0.76, Estimated Creat Clear 45, Estimated GFR 75, Est GFR ( Amer) 90, Glucose 201 H, Calcium 8.1 L, Total Bilirubin 1.7 H, AST 42 H D, ALT 39 D, Alkaline Phosphatase 125 H, Total Protein 5.7 L, Albumin 2.4 L, Globulin 3.3 H, Albumin/Globulin Ratio 0.7 L 03/13/19 11:12: POC Glucose 216 H 03/13/19 16:10: POC Glucose 250 H 03/13/19 20:48: POC Glucose 253 H 03/14/19 04:07: POC Glucose 85 03/14/19 05:40: WBC 5.5, RBC 3.79 L, Hgb 10.9 L, Hct 33.7 L, MCV 89.0, MCH 28.6, MCHC 32.2, RDW 16.0, Plt Count 116 L, MPV 9.3, Neut % (Auto) 59.8, Lymph % (Auto) 23.5, Forest % (Auto) 8.2, Eos % (Auto) 7.8, Baso % (Auto) 0.7, Neut # (Auto) 3.3, Lymph # (Auto) 1.3, Forest # (Auto) 0.5, Eos # (Auto) 0.4, Baso # (Auto) 0.0 03/14/19 05:40: Sodium 140, Potassium 3.8, Chloride 110 H, Carbon Dioxide 22, Anion Gap 11.8, BUN 18, Creatinine 0.80, Estimated Creat Clear 45, Estimated GFR 70, Est GFR ( Amer) 85, Glucose 153 H D, Calcium 7.9 L 03/14/19 06:00: POC Glucose 166 H I & O for Last 24 hours: Intake & Output 03/11/19 03/12/19 03/13/19 03/14/19 11:59 11:59 11:59 11:59 Intake Total 2817 / 2817 1080 / 1080 720 / 720 Output Total 1300 / 1300 Balance 1517 / 1517 1080 / 1080 720 / 720 Weight 124 lb 5 oz 124 lb 8 oz 124 lb 3 oz 124 lb 4 oz Microbiology Reports for the Last 24 Hours: Microbiology 03/11/19 12:55 Urine,Clean Catch Urine Culture - Preliminary Strep agalactiae - (group b) 03/11/19 13:12 Blood Blood Culture - Preliminary Gram Positive Cocci 03/11/19 12:40 Blood Blood Culture - Preliminary Gram Positive Cocci - Constitutional no acute distress - *Routine Respiratory Exam Present: rales (faint bibasilar rales) - *Routine Cardiovascular Exam Present: RRR - *Routine Abdominal Exam Present: soft, normoactive bowel sounds. Absent: tenderness - *Routine Extremities Exam Present: edema (bilateral LE's). Absent: cyanosis, clubbing Assessment and Plan (1) Urinary tract infection Current visit: Yes Status: Acute Category: Medical Code(s): N39.0 - Urinary tract infection, site not specified (2) Fever Current visit: Yes Status: Acute Category: Medical Code(s): R50.9 - Fever, unspecified (3) Prolapsed uterus Current visit: Yes Status: Chronic Category: Medical Code(s): N81.4 - Uterovaginal prolapse, unspecified (4) Type 2 diabetes mellitus Current visit: Yes Status: Chronic Category: Medical Code(s): E11.9 - Type 2 diabetes mellitus without complications (5) Asthma Current visit: Yes Status: Chronic Category: Medical Code(s): J45.909 - Unspecified asthma, uncomplicated (6) Dilated cardiomyopathy Current visit: Yes Status: Chronic Category: Medical Code(s): I42.0 - Dilated cardiomyopathy (7) Renal insufficiency Current visit: Yes Status: Acute Category: Medical Code(s): N28.9 - Disorder of kidney and ureter, unspecified (8) Streptococcus agalactiae infection Current visit: Yes Status: Acute Category: Medical Code(s): A49.1 - Streptococcal infection, unspecified site - Assessment and plan all Dx Assessment and Plan for all problems:: Patient's urine culture was positive for strep agalactiae. Her blood culture showed gram-positive cocci but are still pending. <Dylan Curiel - Last Filed: 03/14/19 08:34> Internal Medicine - PN: Subj *Date: 03/14/19 *Time: 08:32 Exam Vital signs and Labs for Last 24 Hours: Temp Pulse Resp BP Pulse Ox 98.2 F 73 16 111/61 100 03/14/19 07:39 03/14/19 07:39 03/14/19 07:39 03/14/19 07:39 03/14/19 07:39 Laboratory Results - last 24 hr 03/11/19 12:55: Urine Color Yellow, Urine Appearance Sl cloudy, Urine pH 5.5, Ur Specific Sherman 1.015, Urine Protein Negative, Urine Glucose (UA) Negative, Urine Ketones Negative, Urine Blood Trace-i, Urine Nitrate Negative, Urine Bilirubin Negative, Urine Urobilinogen 0.2, Ur Leukocyte Esterase 1+ A, Urine RBC Occasional, Urine WBC 20-50, Ur Squamous Epith Cells 3-5, Urine Bacteria 1+, Urine Mucus 1+ 03/13/19 08:48: WBC 6.9, RBC 4.09 L, Hgb 11.7 L, Hct 35.7 L, MCV 87.4, MCH 28.6, MCHC 32.7, RDW 15.7, Plt Count 106 L, MPV 9.5, Neut % (Auto) 62.5, Lymph % (Auto) 21.9, Forest % (Auto) 8.3, Eos % (Auto) 6.7, Baso % (Auto) 0.6, Neut # (Auto) 4.3, Lymph # (Auto) 1.5, Forest # (Auto) 0.6, Eos # (Auto) 0.5 H, Baso # (Auto) 0.0 03/13/19 08:48: Sodium 137, Potassium 3.8, Chloride 107, Carbon Dioxide 20 L, Anion Gap 13.8, BUN 19 H, Creatinine 0.76, Estimated Creat Clear 45, Estimated GFR 75, Est GFR ( Amer) 90, Glucose 201 H, Calcium 8.1 L, Total Bilirubin 1.7 H, AST 42 H D, ALT 39 D, Alkaline Phosphatase 125 H, Total Protein 5.7 L, Albumin 2.4 L, Globulin 3.3 H, Albumin/Globulin Ratio 0.7 L 03/13/19 11:12: POC Glucose 216 H 03/13/19 16:10: POC Glucose 250 H 03/13/19 20:48: POC Glucose 253 H 03/14/19 04:07: POC Glucose 85 03/14/19 05:40: WBC 5.5, RBC 3.79 L, Hgb 10.9 L, Hct 33.7 L, MCV 89.0, MCH 28.6, MCHC 32.2, RDW 16.0, Plt Count 116 L, MPV 9.3, Neut % (Auto) 59.8, Lymph % (Auto) 23.5, Forest % (Auto) 8.2, Eos % (Auto) 7.8, Baso % (Auto) 0.7, Neut # (Auto) 3.3, Lymph # (Auto) 1.3, Forest # (Auto) 0.5, Eos # (Auto) 0.4, Baso # (Auto) 0.0 03/14/19 05:40: Sodium 140, Potassium 3.8, Chloride 110 H, Carbon Dioxide 22, Anion Gap 11.8, BUN 18, Creatinine 0.80, Estimated Creat Clear 45, Estimated GFR 70, Est GFR ( Amer) 85, Glucose 153 H D, Calcium 7.9 L 03/14/19 06:00: POC Glucose 166 H I & O for Last 24 hours: Intake & Output 03/11/19 03/12/19 03/13/19 03/14/19 23:59 23:59 23:59 23:59 Intake Total 1480 / 1480 2056 / 2056 1080 / 1080 Output Total 600 / 600 700 / 700 Balance 880 / 880 1357 / 1357 1080 / 1080 Weight 124 lb 5 oz 124 lb 8 oz 124 lb 3 oz 124 lb 4 oz Microbiology Reports for the Last 24 Hours: Microbiology 03/11/19 12:55 Urine,Clean Catch Urine Culture - Preliminary Strep agalactiae - (group b) 03/11/19 13:12 Blood Blood Culture - Preliminary Gram Positive Cocci 03/11/19 12:40 Blood Blood Culture - Preliminary Gram Positive Cocci Assessment and Plan (1) Urinary tract infection Current visit: Yes Status: Acute Category: Medical Code(s): N39.0 - Urinary tract infection, site not specified (2) Fever Current visit: Yes Status: Acute Category: Medical Code(s): R50.9 - Fever, unspecified (3) Prolapsed uterus Current visit: Yes Status: Chronic Category: Medical Code(s): N81.4 - Uterovaginal prolapse, unspecified (4) Type 2 diabetes mellitus Current visit: Yes Status: Chronic Category: Medical Code(s): E11.9 - Type 2 diabetes mellitus without complications (5) Asthma Current visit: Yes Status: Chronic Category: Medical Code(s): J45.909 - Unspecified asthma, uncomplicated (6) Dilated cardiomyopathy Current visit: Yes Status: Chronic Category: Medical Code(s): I42.0 - Dilated cardiomyopathy (7) Renal insufficiency Current visit: Yes Status: Acute Category: Medical Code(s): N28.9 - Disorder of kidney and ureter, unspecified (8) Streptococcus agalactiae infection Current visit: Yes Status: Acute Category: Medical Code(s): A49.1 - Streptococcal infection, unspecified site - Assessment and plan all Dx Assessment and Plan for all problems:: Saw patient, agree with above note. Pt to get PICC line today, possible discharge later today.
--- NOTE | 2019-03-14 08:46 | Progress Note ---
Internal Medicine - PN: Subj *Date: 03/14/19 *Time: 08:46 Exam Vital signs and Labs for Last 24 Hours: Temp Pulse Resp BP Pulse Ox 98.2 F 73 16 111/61 100 03/14/19 07:39 03/14/19 07:39 03/14/19 07:39 03/14/19 07:39 03/14/19 07:39 Laboratory Results - last 24 hr 03/11/19 12:55: Urine Color Yellow, Urine Appearance Sl cloudy, Urine pH 5.5, Ur Specific [place] 1.015, Urine Protein Negative, Urine Glucose (UA) Negative, Urine Ketones Negative, Urine Blood Trace-i, Urine Nitrate Negative, Urine Bilirubin Negative, Urine Urobilinogen 0.2, Ur Leukocyte Esterase 1+ A, Urine RBC Occasional, Urine WBC 20-50, Ur Squamous Epith Cells 3-5, Urine Bacteria 1+, Urine Mucus 1+ 03/13/19 08:48: WBC 6.9, RBC 4.09 L, Hgb 11.7 L, Hct 35.7 L, MCV 87.4, MCH 28.6, MCHC 32.7, RDW 15.7, Plt Count 106 L, MPV 9.5, Neut % (Auto) 62.5, Lymph % (Auto) 21.9, Weber % (Auto) 8.3, Eos % (Auto) 6.7, Baso % (Auto) 0.6, Neut # (Auto) 4.3, Lymph # (Auto) 1.5, Weber # (Auto) 0.6, Eos # (Auto) 0.5 H, Baso # (Auto) 0.0 03/13/19 08:48: Sodium 137, Potassium 3.8, Chloride 107, Carbon Dioxide 20 L, Anion Gap 13.8, BUN 19 H, Creatinine 0.76, Estimated Creat Clear 45, Estimated GFR 75, Est GFR ( Amer) 90, Glucose 201 H, Calcium 8.1 L, Total Bilirubin 1.7 H, AST 42 H D, ALT 39 D, Alkaline Phosphatase 125 H, Total Protein 5.7 L, Albumin 2.4 L, Globulin 3.3 H, Albumin/Globulin Ratio 0.7 L 03/13/19 11:12: POC Glucose 216 H 03/13/19 16:10: POC Glucose 250 H 03/13/19 20:48: POC Glucose 253 H 03/14/19 04:07: POC Glucose 85 03/14/19 05:40: WBC 5.5, RBC 3.79 L, Hgb 10.9 L, Hct 33.7 L, MCV 89.0, MCH 28.6, MCHC 32.2, RDW 16.0, Plt Count 116 L, MPV 9.3, Neut % (Auto) 59.8, Lymph % (Auto) 23.5, Weber % (Auto) 8.2, Eos % (Auto) 7.8, Baso % (Auto) 0.7, Neut # (Auto) 3.3, Lymph # (Auto) 1.3, Weber # (Auto) 0.5, Eos # (Auto) 0.4, Baso # (Auto) 0.0 03/14/19 05:40: Sodium 140, Potassium 3.8, Chloride 110 H, Carbon Dioxide 22, Anion Gap 11.8, BUN 18, Creatinine 0.80, Estimated Creat Clear 45, Estimated GFR 70, Est GFR ( Amer) 85, Glucose 153 H D, Calcium 7.9 L 03/14/19 06:00: POC Glucose 166 H I & O for Last 24 hours: Intake & Output 03/11/19 03/12/19 03/13/19 03/14/19 23:59 23:59 23:59 23:59 Intake Total 1480 / 1480 2056 / 7 1080 / 1080 Output Total 600 / 600 700 / 700 Balance 880 / 880 1357 / 1357 1080 / 1080 Weight 56.387 kg 56.472 kg 56.331 kg 56.359 kg Microbiology Reports for the Last 24 Hours: Microbiology 03/11/19 12:55 Urine,Clean Catch Urine Culture - Preliminary Strep agalactiae - (group b) 03/11/19 13:12 Blood Blood Culture - Preliminary Gram Positive Cocci 03/11/19 12:40 Blood Blood Culture - Preliminary Gram Positive Cocci Assessment and Plan (1) Urinary tract infection Current visit: Yes Status: Acute Category: Medical Code(s): N39.0 - Urinary tract infection, site not specified (2) Fever Current visit: Yes Status: Acute Category: Medical Code(s): R50.9 - Fever, unspecified (3) Prolapsed uterus Current visit: Yes Status: Chronic Category: Medical Code(s): N81.4 - Uterovaginal prolapse, unspecified (4) Type 2 diabetes mellitus Current visit: Yes Status: Chronic Category: Medical Code(s): E11.9 - Type 2 diabetes mellitus without complications (5) Asthma Current visit: Yes Status: Chronic Category: Medical Code(s): J45.909 - Unspecified asthma, uncomplicated (6) Dilated cardiomyopathy Current visit: Yes Status: Chronic Category: Medical Code(s): I42.0 - Dilated cardiomyopathy (7) Renal insufficiency Current visit: Yes Status: Acute Category: Medical Code(s): N28.9 - Disorder of kidney and ureter, unspecified (8) Streptococcus agalactiae infection Current visit: Yes Status: Acute Category: Medical Code(s): A49.1 - Streptococcal infection, unspecified site The patient's infection will respond to the chosen ABx?: Yes Is the patient receiving the right drug, dose, and route?: Yes Could a more targeted ABx be ordered?: No (SENSITIVITIES NOT BACK FROM LAB. PCR GROUP B STREP)
--- NOTE | 2019-03-14 13:32 | Discharge Summary ---
General - General Admission date:: 03/11/19 Discharge date: 03/14/19 HPI HPI: Ms. Dorman is a 73-year-old female who had not been feeling well for 3 days prior to admission. On 03/08 she began to have frequent urination in small amounts with burning and a small amount of hematuria. She then developed a fever. She stayed in the bed and slept almost continuously for 2 days. She had not been eating and drinking very well. She felt as if her bladder was hanging out. She has an appointment with Dr. Ramirez for exam in 2 weeks. She presented to [facility] for evaluation. With exam in the office patient was found to be dehydrated and with a fever. She was shaking and chilling. UA revealed UTI. She was also seen by Dr. Curiel and the decision was made to admit her to [facility] for IV antibiotics, fever control, IV fluids, and lab work. Hospital Course Hospital Course: The patient was admitted and given an IV bolus of fluid. She was started on Invanz, sliding scale insulin, some of her home medications, and labs and a chest x-ray were ordered. Her chest x-ray showed nothing acute. Her labs revealed an elevated white blood cell count. She had a urinalysis which showed a UTI and a culture was ordered. The patient was seen in consultation by Dr. Gamez due to pelvic organ prolapse. He had tried a pessary but it had fallen out. She never returned for a trial of a different pessary, therefore he wanted her to follow-up in his office after discharge to fit her for a different pessary. She began feeling better. She was voiding with less difficulty and burning. She was able to ambulate around her room and was tolerating a diet. Her mental status improved. Her potassium was low, therefore it was replaced. Her urine culture returned positive for strep agalactiae and her blood cultures were showing growth of gram-positive cocci. A PICC line was placed and she was stable to be discharged home on outpatient Invanz which will be administered by home health. Objective Vital signs: Temp Pulse Resp BP Pulse Ox 98.2 F 80 16 111/61 100 03/14/19 07:39 03/14/19 09:15 03/14/19 07:39 03/14/19 07:39 03/14/19 07:39 Narrative: - Constitutional no acute distress, thin Comments: Appears not to feel well. Shaking with chills. - *Routine HEENT Exam Head: Present: normocephalic, atraumatic Eye: Present: PERRL. Absent: conjunctival icterus, scleral injection ENT: Present: mucous membranes dry, oropharynx clear, nares patent - *Routine Neck Exam Present: supple. Absent: carotid bruit, lymphadenopathy, thyromegaly - *Routine Respiratory Exam Present: CTA bilaterally (Anteriorly and posteriorly) - *Routine Cardiovascular Exam Present: RRR - *Routine Abdominal Exam Present: soft, normoactive bowel sounds. Absent: tenderness, guarding Comments: Abdominal varices. Pelvic reveals prolapsing uterus - *Routine Extremities Exam Absent: edema, calf tenderness Results Labs on day of discharge: Labs from last 24 hours 03/14/19 03/14/19 03/14/19 12:03 06:00 05:40 WBC RBC Hgb Hct MCV MCH MCHC RDW Plt Count MPV Neut % (Auto) Lymph % (Auto) [place] % (Auto) Eos % (Auto) Baso % (Auto) Neut # (Auto) Lymph # (Auto) [place] # (Auto) Eos # (Auto) Baso # (Auto) Sodium 140 Potassium 3.8 Chloride 110 H Carbon Dioxide 22 Anion Gap 11.8 BUN 18 Creatinine 0.80 Estimated Creat Clear 45 Estimated GFR 70 Est GFR ( Amer) 85 Glucose 153 H D POC Glucose 338 H* 166 H Calcium 7.9 L Urine Color Urine Appearance Urine pH Ur Specific [place] Urine Protein Urine Glucose (UA) Urine Ketones Urine Blood Urine Nitrate Urine Bilirubin Urine Urobilinogen Ur Leukocyte Esterase Urine RBC Urine WBC Ur Squamous Epith Cells Urine Bacteria Urine Mucus 03/14/19 03/14/19 03/13/19 05:40 04:07 20:48 WBC 5.5 RBC 3.79 L Hgb 10.9 L Hct 33.7 L MCV 89.0 MCH 28.6 MCHC 32.2 RDW 16.0 Plt Count 116 L MPV 9.3 Neut % (Auto) 59.8 Lymph % (Auto) 23.5 [place] % (Auto) 8.2 Eos % (Auto) 7.8 Baso % (Auto) 0.7 Neut # (Auto) 3.3 Lymph # (Auto) 1.3 [place] # (Auto) 0.5 Eos # (Auto) 0.4 Baso # (Auto) 0.0 Sodium Potassium Chloride Carbon Dioxide Anion Gap BUN Creatinine Estimated Creat Clear Estimated GFR Est GFR ( Amer) Glucose POC Glucose 85 253 H Calcium Urine Color Urine Appearance Urine pH Ur Specific [place] Urine Protein Urine Glucose (UA) Urine Ketones Urine Blood Urine Nitrate Urine Bilirubin Urine Urobilinogen Ur Leukocyte Esterase Urine RBC Urine WBC Ur Squamous Epith Cells Urine Bacteria Urine Mucus 03/13/19 03/11/19 16:10 12:55 WBC RBC Hgb Hct MCV MCH MCHC RDW Plt Count MPV Neut % (Auto) Lymph % (Auto) [place] % (Auto) Eos % (Auto) Baso % (Auto) Neut # (Auto) Lymph # (Auto) [place] # (Auto) Eos # (Auto) Baso # (Auto) Sodium Potassium Chloride Carbon Dioxide Anion Gap BUN Creatinine Estimated Creat Clear Estimated GFR Est GFR ( Amer) Glucose POC Glucose 250 H Calcium Urine Color Yellow Urine Appearance Sl cloudy Urine pH 5.5 Ur Specific [place] 1.015 Urine Protein Negative Urine Glucose (UA) Negative Urine Ketones Negative Urine Blood Trace-i Urine Nitrate Negative Urine Bilirubin Negative Urine Urobilinogen 0.2 Ur Leukocyte Esterase 1+ A Urine RBC Occasional Urine WBC 20-50 Ur Squamous Epith Cells 3-5 Urine Bacteria 1+ Urine Mucus 1+ Preliminary micro results at discharge 03/11/19 12:55 Urine Culture - Preliminary Urine,Clean Catch Strep agalactiae - (group b) 03/11/19 13:12 Blood Culture - Preliminary Blood Gram Positive Cocci 03/11/19 12:40 Blood Culture - Preliminary Blood Gram Positive Cocci DS: Diagnosis - Discharge Diagnosis (1) Urinary tract infection Status: Acute (2) Fever Status: Acute (3) Prolapsed uterus Status: Chronic (4) Type 2 diabetes mellitus Status: Chronic (5) Asthma Status: Chronic (6) Dilated cardiomyopathy Status: Chronic (7) Renal insufficiency Status: Acute (8) Streptococcus agalactiae infection Status: Acute Discharge Plan - Patient Discharge Instructions ACTIVITY: Continue current activity DIET: continue same diet Additional Instructions: Pt to have Invanz 1 gram IV daily and PICC line care through home health (order has already been provided separately) Patient Instructions: Carbohydrate-Counting Diet, DI for Heart Failure, DI for Dehydration -- Adult, DI for Urinary Tract Infection (UTI), DI for Diabetes Type 2 - Follow up Plan Follow up with: Mamie Telles PA [Physician Director [employer]] - 03/21/19 11:15 am Blane Grullon MD [Staff Physician] - 03/21/19 Disposition: Home Health Service Home Medications: Home Medications Medication Instructions Recorded Confirmed Type Albuterol Sulfate [Albuterol HFA 1 - 2 puffs IH Q4-6H PRN 01/28/19 03/11/19 History Inhaler] Carvedilol [Carvedilol 6.25mg Tab] 6.25 mg PO BID 01/28/19 03/11/19 History Digoxin [Digoxin 0.125mg Tablet] 125 mcg PO DAILY 01/28/19 03/11/19 History Furosemide [Lasix 40mg tab] 40 mg PO DIRECTED 01/28/19 03/11/19 History Glimepiride 8 mg PO DAILY 01/28/19 03/11/19 History Insulin Aspart [Novolog Flexpen] 6 - 8 unit SQ DAILY 01/28/19 03/11/19 History Insulin Glargine,Hum.rec.anlog 20 unit SQ HS 01/28/19 03/11/19 History [Toujeo Solostar] Levothyroxine Sodium 88 mcg PO DAILY 01/28/19 03/11/19 History [Levothyroxine 88mcg (0.088mg) Tab] Linagliptin [Tradjenta 5mg tablet] 5 mg PO DAILY 01/28/19 03/11/19 History Mometasone Furoate [Nasonex] 17 gm NS HS 01/28/19 03/11/19 History Spironolactone 25 mg PO DIRECTED 01/28/19 03/11/19 History Theophylline Anhydrous 200 mg PO TID 01/28/19 03/11/19 History [Theophylline] guaiFENesin [Mucinex] 1,200 mg PO NEEDED PRN 01/28/19 03/11/19 History predniSONE [Deltasone 2.5mg 2.5 mg PO DAILY 01/28/19 03/11/19 History tab] Cetirizine HCl [Allergy Relief] 10 mg PO DAILY 03/11/19 03/11/19 History Prescriptions/Medication Reconciliation: New Ertapenem Sodium [Invanz 1gm Vial] 1 gm IV Q24H vial Continued Insulin Glargine,Hum.rec.anlog [Toujeo Solostar] 20 unit SQ HS Insulin Aspart [Novolog Flexpen] 6 - 8 unit SQ DAILY Albuterol Sulfate [Albuterol HFA Inhaler] 1 - 2 puffs IH Q4-6H PRN PRN Reason: Shortness Of Breath Or Wheezing Linagliptin [Tradjenta 5mg tablet] 5 mg PO DAILY Glimepiride 8 mg PO DAILY Digoxin [Digoxin 0.125mg Tablet] 125 mcg PO DAILY Spironolactone 25 mg PO DIRECTED Furosemide [Lasix 40mg tab] 40 mg PO DIRECTED Carvedilol [Carvedilol 6.25mg Tab] 6.25 mg PO BID Theophylline Anhydrous [Theophylline] 200 mg PO TID predniSONE [Deltasone 2.5mg tab] 2.5 mg PO DAILY Levothyroxine Sodium [Levothyroxine 88mcg (0.088mg) Tab] 88 mcg PO DAILY Cetirizine HCl [Allergy Relief] 10 mg PO DAILY guaiFENesin [Mucinex] 1,200 mg PO NEEDED PRN PRN Reason: mucous Mometasone Furoate [Nasonex] 17 gm NS HS
== END 2019-03-14 16:50 | disposition home health service (06) | DRG 690 ==
LOC: 2ND → OBSVTOIN 10:55
PROVIDERS: ADMIT Family Medicine; ATTEND Family Medicine
CPT/HCPCS: 36415; 36569; 71010; 71020; 71045; 71046; 80048; 80053; 81001; 82962; 85025; 87040; 87077; 87086; 87088; 87186; 94640; 94761; C1751; J1335

== ENCOUNTER → 2019-03-16 16:45 | Outpatient (CLI) | payer MEDICARE, SELFPAY ==
--- NOTE | 2019-03-16 17:38 | PC.NURSE ---
PT'S PICC LINE BLEEDING AND SHE WAS SEEN IN [facility]. DARIAN LUGO APRN WROTE IN PT'S DISCHARGE INSTRUCTIONS DISCHARGE TO OUTPATIENT INFUSION AND WE WILL GIVE INVANZ IN LEFT ARM IV. FOLLOW UP WITH INFUSION TOMORROW AM TO CHECK/REPLACE PICC LINE. I CALLED Yusuf LUGO TO CLARIFY. DOES SHE WANT DRESSING CHANGED TODAY BY US, OR TOMORROW BY INFUSION. Yusuf LUGO REPLIES TO HAVE INFUSION LOOK AT IT SINCE THEY KNOW MORE ABOUT PICC LINES, BUT ASKS THAT WE PLACE AN ABD PAD OVER TOP OF THE DRESSING THAT IS IN PLACE NOW TO KEEP IT FROM BLEEDING THROUGH. PICC LINE SEEMS TO NOT BE BLEEDING ANY FURTHER, NO ACTIVE BLEEDING NOTED.
--- NOTE | 2019-03-16 17:40 | PC.NURSE ---
PATIENT FAMILY CALLED AND STATES SHE IS SUPPOSE TO BE GETTING INVANZ INFUSED AT HOME. HOME HEALTH NURSE WAS THERE EARLIER TO SHOW THEM HOW TO DO IT. SINCE THEN THE PATIENTS PICC SITE HAS HAD SOME BLEEDING AND THE IS NOT COMFORTABLE USING IT. I ADVISED PATIENT TO GO TO THE [facility] AND HAVE IT CHECKED. RECEIVED A CALL FROM MAVIS IN [facility] STATING THAT BEATRIZ MENDIOLA WOULD LIKE PATIENT TO RECEIVE HER IN[facility]ION [facility]. SHE WOULD LIKE THE PICC DRESSING REINFORCED AND CHANGED TOMORROW BY OUTPATIENT. I CALLED CARE MANAGEMENT WHO SAID WE CAN GIVE PATIENT HER OWN MED [facility] LONG IT IS OK WITH PHARMACY AND SHE HAS ASKED FOR PATIENTS FAMILY TO CALL HER TOMORROW. I GAVE AMYS NUMBER TO THE FAMILY WHO IS GOING TO CALL HER TOMORROW. I SPOKE WITH MELONIE FROM PHARMACY WHO VERIFIED THE MEDICATION AND STATES WE ARE GOOD TO USE IT. INFUSION WAS STARTED.
[2019-03-16 17:50] VITALS: BP 110/54; PULSE 81; RESP 16; TEMP 36.1; O2SAT 16
== END ==
PROVIDERS: PCP Family Medicine; Visit Provider Physician Assistant
DX: N39.0 Urinary tract infection, site not specified (principal)
CPT/HCPCS: 96365; 99201

== ENCOUNTER 2019-03-17 12:55 | Outpatient (CLI) | payer MEDICARE, SELFPAY ==
[2019-03-17 13:29] VITALS: BP 95/51; PULSE 73; RESP 18; TEMP 36.6; O2SAT 95; BMI 23.4
[2019-03-17 14:39] VITALS: BP 95/58; PULSE 72; RESP 16; O2SAT 97
--- NOTE | 2019-03-17 17:30 | PC.NURSE ---
PATIENT IS BRINGING HER OWN MEDS FROM HOME; PHARMACY [facility] CHECKED ALL VIAL AND BAGS OF INVANZ; PT HAS A PICC AND WE WILL KEEP HER MEDICATIONS HERE AT [facility] AND GIVE THEM TO THE PATIENT DAILY FOR THE REMIANDER OF THE HER DOSES;
== END 2019-03-17 14:00 | disposition home or self-care (01) ==
LOC: INF 13:01
PROVIDERS: Visit Provider Family Medicine
DX: N39.0 Urinary tract infection, site not specified (principal); R78.81 Bacteremia
CPT/HCPCS: 96365

== ENCOUNTER 2019-03-18 13:00 | Outpatient (CLI) | payer MEDICARE, SELFPAY ==
[2019-03-18 13:10] VITALS: BP 98/49; PULSE 71; RESP 18; TEMP 36.5; O2SAT 94
[2019-03-18 13:50] VITALS: BP 110/53; PULSE 80; RESP 18; O2SAT 94
--- NOTE | 2019-03-18 13:59 | PC.NURSE ---
1310-invanz 1gm checked per pharmacy. infusion started at this time.
== END 2019-03-18 13:50 | disposition home or self-care (01) ==
LOC: INF 13:06
PROVIDERS: Visit Provider Family Medicine
DX: N39.0 Urinary tract infection, site not specified (principal); R78.81 Bacteremia
CPT/HCPCS: 96365

== ENCOUNTER → 2019-03-19 13:00 | Outpatient (CLI) | payer MEDICARE, SELFPAY ==
[2019-03-19 13:10] VITALS: BP 93/49; PULSE 71; RESP 18; TEMP 36.7; O2SAT 94
--- NOTE | 2019-03-19 13:10 | PC.NURSE ---
1310-invanz 1gm checked per pharmacy. started invanz infusion.
[2019-03-19 14:00] VITALS: BP 100/59; PULSE 91; RESP 18; O2SAT 95
== END ==
PROVIDERS: Visit Provider Family Medicine
DX: N39.0 Urinary tract infection, site not specified (principal); R78.81 Bacteremia
CPT/HCPCS: 96365

== ENCOUNTER 2019-03-20 13:00 | Outpatient (CLI) | payer MEDICARE, SELFPAY ==
[2019-03-20 13:26] VITALS: BP 97/56; PULSE 79; RESP 17; O2SAT 94; BMI 23.4
== END 2019-03-20 13:59 | disposition home or self-care (01) ==
LOC: INF 13:01
PROVIDERS: PCP Family Medicine; Visit Provider Family Medicine
DX: N39.0 Urinary tract infection, site not specified (principal); A49.1 Streptococcal infection, unspecified site
CPT/HCPCS: 96365

== ENCOUNTER 2019-03-21 12:45 | Outpatient (CLI) | payer MEDICARE, SELFPAY ==
[2019-03-21 13:15] VITALS: BP 100/51; PULSE 68; RESP 20; TEMP 36.9; O2SAT 98
[2019-03-21 13:25] VITALS: BP 105/58; PULSE 71; RESP 20; TEMP 36.9; O2SAT 95
== END 2019-03-21 13:45 | disposition home or self-care (01) ==
LOC: INF 12:45
PROVIDERS: Visit Provider Family Medicine
DX: N39.0 Urinary tract infection, site not specified (principal); B96.4 Proteus (mirabilis) (morganii) as the cause of diseases classified elsewhere; B96.20 Unspecified Escherichia coli [E. coli] as the cause of diseases classified elsewhere
CPT/HCPCS: 96365

== ENCOUNTER → 2019-03-22 13:06 | Outpatient (CLI) | payer MEDICARE, SELFPAY ==
[2019-03-22 14:05] VITALS: BP 126/63; PULSE 67; RESP 18
== END ==
PROVIDERS: PCP Family Medicine; Visit Provider Family Medicine
DX: N39.0 Urinary tract infection, site not specified (principal); R78.81 Bacteremia
CPT/HCPCS: 96365

== ENCOUNTER 2019-03-23 12:58 | Outpatient (CLI) | payer MEDICARE, SELFPAY ==
[2019-03-23 13:00] VITALS: BP 120/63; PULSE 69; RESP 18
[2019-03-23 14:30] VITALS: BP 110/59; PULSE 63; RESP 18
== END 2019-03-23 14:30 | disposition home or self-care (01) ==
LOC: INF 12:58
PROVIDERS: PCP Family Medicine; Visit Provider Family Medicine
DX: N39.0 Urinary tract infection, site not specified (principal); R78.81 Bacteremia
CPT/HCPCS: 96365

== ENCOUNTER 2019-03-24 13:00 | Outpatient (CLI) | payer MEDICARE, SELFPAY ==
[2019-03-24 13:07] VITALS: BP 92/51; PULSE 72; RESP 16; TEMP 36.6; O2SAT 97; BMI 23.4
[2019-03-24 14:25] VITALS: BP 99/51; PULSE 67; RESP 16; TEMP 36.6; O2SAT 95
== END 2019-03-24 14:26 | disposition home or self-care (01) ==
LOC: INF 13:00
PROVIDERS: Visit Provider Family Medicine
DX: N39.0 Urinary tract infection, site not specified (principal); R78.81 Bacteremia
CPT/HCPCS: 96365

== ENCOUNTER 2019-03-31 14:21 | Outpatient (CLI) | payer MEDICARE, SELFPAY | END 2019-03-31 14:30 | disposition home or self-care (01) | LOC: INF 14:21 | PROVIDERS: Visit Provider Family Medicine | DX: N39.0 Urinary tract infection, site not specified (principal); R78.81 Bacteremia; Z45.2 Encounter for adjustment and management of vascular access device | CPT/HCPCS: G0463 ==

== ENCOUNTER → 2019-05-28 11:26 | Outpatient (CLI) | payer MEDICARE, SELFPAY ==
--- NOTE | 2019-05-28 11:38 | XR_ITS ---
PROCEDURE: XR ACUTE ABDOMEN SERIES CLINICAL INDICATION: PORTAL HYPERTENSION Right-sided pain COMPARISON: CXR2V XR chest 2V from 09/13/2018 FINDINGS: Upright view of the chest shows cardiomegaly with pulmonary venous congestion consistent with CHF. There is patchy density in the right lower lobe which may be due to an area of pneumonia superimposed upon chronic changes. Biventricular pacemaker with right atrial lead is present from left subclavian approach. Upright and supine views of the abdomen show a nonspecific bowel gas pattern. No intestinal obstruction or free air. There is increased density overlying the pelvis and may be related to distended urinary bladder or prominent uterus. Tubal ligation clips are present. Bipolar prosthesis are present in the hips. There is mild lumbar scoliosis convex left. IMPRESSION: 1. CHF with right lower lobe infiltrate. 2. Increased density overlying the pelvis which could be due to distended urinary bladder or prominent uterus Dictated by: Mathew Call MD 05/28/2019 17:23 Electronically signed by Mathew Call MD in [place] 05/28/2019 17:23
== END ==
PROVIDERS: PCP Family Medicine; Visit Provider Nurse Practitioner Family
DX: K76.6 Portal hypertension (principal); R78.81 Bacteremia
CPT/HCPCS: 36415; 74021; 87040

== ENCOUNTER → 2019-06-18 15:54 | Outpatient (CLI) | payer MEDICARE, SELFPAY ==
--- NOTE | 2019-06-18 | CA_ITS ---
APPROVED REPORT Right Lower Extremity Venous Study for DVT. [employer] Architect: Geraldine Armstrong RVT Indications Lower Extremity Edema: Right Vein Imaging CFV (R): compressive, spontaneous, phasic, augmentation FEM (R): compressive, spontaneous, phasic, augmentation POP (R): compressive, spontaneous, phasic, augmentation PTV (R): Compressible GSV (R): Compressible Peroneals (R):Compressible GAS (R): Compressible Findings Right lower extremity is negative for DVT. Right lower extremity is negative for SVT. Conclusion Right lower extremity is negative for DVT. Right lower extremity is negative for SVT. Electronically signed by : Osmany Stoll, 06/18/2019 16:58:03
== END ==
PROVIDERS: PCP Physician Assistant; Visit Provider Physician Assistant
DX: R60.1 Generalized edema (principal); M79.604 Pain in right leg
CPT/HCPCS: 93971

== ENCOUNTER → 2019-08-28 09:54 | Outpatient (CLI) | payer MEDICARE, SELFPAY ==
--- NOTE | 2019-08-28 09:56 | MM_ITS ---
PROCEDURE: MM DIG SCREENING MAMM BI W/CAD CLINICAL INDICATION: SCREENING There is no personal or family history of breast cancer. COMPARISON: [facility] DIG MAMM-SCREEN XAVIER from 12/02/2015 [facility] DIG MAMM-SCREEN XAVIER W/CAD from 07/24/2017 [facility] MM Dig screening mamm BI w/CAD from 07/29/2018 TECHNIQUE: Standard CC and MLO images were obtained. R2 CAD reviewed. FINDINGS: Prominent diffuse fibroglandular densities are seen throughout both breasts. Again noted is the definitive related projecting over the left upper outer breast and axillary tail making positioning somewhat difficult. There are few scattered benign-appearing microcalcifications in each breast. There is no new or suspicious lesion in either breast and no suspicious microcalcifications. IMPRESSION: Moderate diffuse breast density with no suspicious lesions seen BI-RAD Category: 2 Benign Finding(s) FOLLOW-UP: 1YR 1 Year Follow-up (A letter has been sent to the patient regarding results of the study.) Dictated by: Dr. Jerson Graham MD 09/01/2019 10:[address] Jerson Graham MD in [place] 09/01/2019 10:52
--- NOTE | 2019-08-28 09:57 | XR_ITS ---
PROCEDURE: XR DEXA AXIAL SKELETON CLINICAL HISTORY: OSTEOPOROSIS COMPARISON: No exams were available for comparison FINDINGS: L1-L4 density has a T-score -0.1 with a density of 1.166 grams/centimeters sq. Radius 33 percent is 0.628 grams/centimeters sq with a T-score -2.9 IMPRESSION: Osteoporosis with high fracture risk. Treatment advised. Recommend follow-up exam in 1 year Dictated by: Mathew Call MD 08/28/2019 16:18 Electronically signed by Mathew Call MD in [place] 08/28/2019 16:18
== END ==
PROVIDERS: PCP Physician Assistant; Visit Provider Nurse Practitioner Family
DX: Z12.31 Encounter for screening mammogram for malignant neoplasm of breast (principal); M81.0 Age-related osteoporosis without current pathological fracture
CPT/HCPCS: 77067; 77080

== ENCOUNTER → 2019-10-17 14:35 | Outpatient (CLI) | payer MEDICARE, SELFPAY ==
--- NOTE | 2019-10-17 14:41 | XR_ITS ---
PROCEDURE: XR HAND RT MIN 3V CLINICAL INDICATION: RT HAND PAIN COMPARISON: No exams were available for comparison FINDINGS: No fracture or dislocation. No lytic or blastic change. There is normal mineralization. There are osteoarthritic changes at the 1st metacarpophalangeal joint in the DIP of the 2nd and 3rd digit. Other findings:None. IMPRESSION: Mild osteoarthritic change. No acute finding Dictated by: Mathew Call MD 10/17/2019 17:04 Electronically signed by Mathew Call MD in [place] 10/17/2019 17:04
== END ==
PROVIDERS: PCP Family Medicine; Visit Provider Family Medicine
DX: M79.641 Pain in right hand (principal)
CPT/HCPCS: 73130

== ENCOUNTER → 2019-12-01 14:09 | Outpatient (CLI) | payer MEDICARE, SELFPAY ==
--- NOTE | 2019-12-01 14:18 | XR_ITS ---
PROCEDURE: XR CHEST 2V CLINICAL HISTORY: R/O PNEUMONIA Cough and shortness of air COMPARISON: CXR CHEST(2 VIEWS-NOT PORTABLE) from 09/15/2014 CXR2V XR chest 2V from 09/13/2018 XR CHEST PORTABLE from 11/27/2019 FINDINGS: Borderline cardiomegaly without failure. Biventricular and right atrial pacemaker wires are present. Ground-glass consolidation has developed the right upper lobe peripherally consistent with pneumonia. There is also some patchy density in the right lung base and in the left perihilar region. No obvious effusion. No acute bony abnormalities. IMPRESSION: Ground-glass consolidation in the right upper lobe peripherally with left perihilar and possible right basilar infiltrate. Viral pneumonia is a consideration. Please correlate clinically Dictated by: Mathew Call MD 12/01/2019 14:48 Electronically signed by Mathew Call MD in [place] 12/01/2019 14:48
== END ==
PROVIDERS: PCP Family Medicine; Visit Provider Family Medicine
DX: R06.02 Shortness of breath (principal); R05 Cough
CPT/HCPCS: 71046

== ENCOUNTER → 2020-02-09 10:12 | Outpatient (CLI) | payer MEDICARE, SELFPAY ==
[2020-02-09 12:10] LABS: Coronavirus 19 IgG Antibody Negative (Negative); Coronavirus 19 IgM Antibody Negative (Negative)
== END ==
PROVIDERS: Visit Provider Ophthalmology
DX: Z01.818 Encounter for other preprocedural examination (principal)
CPT/HCPCS: 36415; 86328

== ENCOUNTER 2020-02-10 08:13 | Day surgery (SDC) | payer MEDICARE, SELFPAY ==
--- NOTE | 2020-02-04 11:14 | SUR.PREOP ---
02/04/2020 @ 1115--PHONE CALL MADE TO PATIENT. PATIENT UNDERSTANDS THAT LAB WORK AND COVID TESTING NEEDS TO BE COMPLETED BEFORE 10AM ON 02/10/2020. PATIENT UNDERSTANDS IF LAB WORK AND COVID-19 TESTS ARE NOT COMPLETED BY 12PM ON THAT DATE, THE SURGERY SCHEDULED WILL BE CANCELLED AND RESCHEDULED FOR ANOTHER TIME.
[2020-02-10] VITALS (7 sets, daily range): BP systolic 99–124; BP diastolic 49–59; PULSE 69–78; RESP 18–20; TEMP 36.1–36.6; O2SAT 95–98; BMI 23.0
[2020-02-10 20:40] LABS: POC Glucose,Bedside 158 (70-110)
== END 2020-02-10 10:46 | disposition home or self-care (01) ==
LOC: OR 08:17
PROVIDERS: PCP Family Medicine; Visit Provider Ophthalmology
DX: H26.9 Unspecified cataract (principal); F41.9 Anxiety disorder, unspecified; J45.909 Unspecified asthma, uncomplicated; I48.91 Unspecified atrial fibrillation; E11.9 Type 2 diabetes mellitus without complications; E03.9 Hypothyroidism, unspecified; H91.90 Unspecified hearing loss, unspecified ear
CPT/HCPCS: 66984; 82962; V2632

== ENCOUNTER → 2020-03-10 08:24 | Outpatient (CLI) | payer MEDICARE, SELFPAY ==
--- NOTE | 2020-03-10 08:31 | US_ITS ---
PROCEDURE: US ABDOMEN LIMITED CLINICAL INDICATION: ELEVATED BILIRUBIN COMPARISON: ABD US ABD(COMPLETE-MULTI ORGANS from 08/28/2017 FINDINGS: Small amount of fluid is adjacent to the hepatic capsule. The liver was not measured but is of heterogeneous, increased echogenicity. Enlarged portal vein and periportal venous collaterals are noted. Gallbladder sludge is demonstrated and there are polyps present. Gallbladder wall is thickened at 6.4 millimeters which may be a pseudo finding from the ascites. Common bile duct measures 3.4 millimeters. The right kidney is normal size and echogenicity and measures 88 millimeters x 49 millimeters x 59 millimeters. IMPRESSION: Hepatic steatosis, portal venous hypertension, periportal collaterals,gallbladder sludge and polyps, small amount of ascites Dictated by: Zack Garcia 03/10/2020 11:58 Electronically signed by Zack Garcia in [place] 03/10/2020 11:58
== END ==
PROVIDERS: PCP Family Medicine; Visit Provider Nurse Practitioner Family
DX: R17 Unspecified jaundice (principal)
CPT/HCPCS: 76705

== ENCOUNTER → 2020-04-12 15:16 | Outpatient (POV) | payer MEDICARE, SELFPAY | PROVIDERS: PCP Family Medicine; Visit Provider Nurse Practitioner Family | DX: Z00.00 Encounter for general adult medical examination without abnormal findings (principal) ==

== ENCOUNTER → 2020-04-12 16:29 | Outpatient (CLI) | payer MEDICARE, SELFPAY ==
[2020-04-12 16:56] LABS: Basophils # 0.1 K/mm3 (0-0.2); Basophils % 0.8 % (0.1-2.0); Eosinophils # 0.5 K/mm3 (0.0-0.4); Eosinophils % 6.4 % (0.1-12.0); Hematocrit 37.7 % (37.0-47.0); Hemoglobin 13.4 g/dL (12.2-16.2); Lymphocytes # 1.6 K/mm3 (0.7-4.5); Lymphocytes % 19.1 % (10-50); Mean Corpuscular HGB Conc 35.6 g/dL (31.8-35.4); Mean Corpuscular Hemoglobin 31.8 pg (27.0-31.2); Mean Corpuscular Volume 89.3 fl (81-99); Monocytes # 0.5 K/mm3 (0.1-1.0); Monocytes % 6.5 % (1.7-9.3); Neutrophils # 5.5 K/mm3 (1.8-7.8); Neutrophils % 67.2 % (37.0-80.0); Platelet Count 101 K/mm3 (142-424); Red Blood Count 4.22 M/mm3 (4.20-5.40); Red Cell Distribution Width 16.8 % (11.5-17.5); White Blood Count 8.2 K/mm3 (4.8-10.8)
[2020-04-12 16:59] LABS: Ammonia 24 umol/L (9-30)
[2020-04-12 17:12] LABS: INR 1.32 (0.9-1.1); Prothrombin Time 13.4 seconds (9.4-11.8)
[2020-04-12 19:42] LABS: Chloride 107 mmol/L (98-107); Sodium 136 mmol/L (136-145)
[2020-04-12 19:45] LABS: Alanine Aminotransferase 47 U/L (12-78); Albumin/Globulin Ratio 1.1 (1.1-1.8); Alkaline Phosphatase 153 U/L (38-126); Aspartate Amino Transferase 58 U/L (14-36); Bilirubin,Total 1.9 mg/dl (0.2-1.3); Blood Urea Nitrogen 19 mg/dl (7-17); Calcium 8.9 mg/dl (8.4-10.2); Carbon Dioxide 24 mmol/L (22.0-30.0); Estimated Glomerular Filt Rate 82 ml/min (>60); GFR (African American) 99 ML/MIN (>60); Globulin 2.8 g/dL (1.3-3.2); Glucose 202 mg/dl (74-100); Iron 76 ug/dL (37-170); Total Protein,Serum 5.8 g/dl (6.3-8.2)
[2020-04-12 19:55] LABS: Total Iron Binding Capacity 248 ug/dL (265-497)
[2020-04-12 20:23] LABS: Ferritin 144 ng/ml (11.1-264)
[2020-04-14 20:01] LABS: AFP, Tumor Marker 4.1 ng/mL (0.0-8.3)
== END ==
PROVIDERS: Visit Provider Nurse Practitioner Family
DX: K75.81 Nonalcoholic steatohepatitis (NASH) (principal); K74.60 Unspecified cirrhosis of liver; K76.6 Portal hypertension
CPT/HCPCS: 36415; 80053; 82105; 82140; 82728; 83540; 83550; 85025; 85610

== ENCOUNTER → 2020-06-30 08:42 | Outpatient (CLI) | payer MEDICARE, SELFPAY ==
--- NOTE | 2020-06-30 08:57 | US_ITS ---
PROCEDURE: US ABDOMEN LIMITED CLINICAL INDICATION: NONALCOHOLIC STEATOHEPATITIS, CIRRHOSIS, PORTAL HYPERTENSION COMPARISON: US US ABDOMEN LIMITED from 03/10/2020 FINDINGS: PANCREAS: Unremarkable. No obvious mass or abnormal fluid collection. No ductal dilatation LIVER: There is diffuse heterogeneous echogenicity of the liver with irregularity of the hepatic surface consistent with cirrhosis. There is some perihepatic fluid noted. The portal vein is dilated at 17 mm. There is appropriate direction of blood flow within the portal vein. No focal liver lesion is demonstrated. RIGHT KIDNEY: Unremarkable. Normal size and echogenicity. No hydronephrosis GALLBLADDER: Gallbladder wall is thickened. Sludge is present in gallbladder. No shadowing stones are apparent. No pericholecystic fluid. The spleen is enlarged at 15 cm with perisplenic fluid noted. IMPRESSION: Cirrhosis with portal hypertension and splenomegaly with ascites. There is appropriate direction of blood flow within the portal vein. Portal vein is enlarged at 18 mm. Thickened gallbladder wall with gallbladder sludge. Dictated by: Mathew Call MD 06/30/2020 18:17 Mathew Call MD in [place] 06/30/2020 18:17
[2020-06-30 09:36] LABS: Ammonia 24 umol/L (9-30)
[2020-06-30 09:39] LABS: Basophils # 0.1 K/mm3 (0-0.2); Basophils % 1.4 % (0.1-2.0); Eosinophils # 0.7 K/mm3 (0.0-0.4); Eosinophils % 7.4 % (0.1-12.0); Hematocrit 39.8 % (37.0-47.0); Hemoglobin 12.7 g/dL (12.2-16.2); Lymphocytes % 22.7 % (10-50); Mean Corpuscular Hemoglobin 29.8 pg (27.0-31.2); Mean Corpuscular Volume 93.1 fl (81-99); Mean Platelet Volume 7.8 fl (7.4-10.4); Monocytes # 0.8 K/mm3 (0.1-1.0); Monocytes % 9.2 % (1.7-9.3); Neutrophils # 5.3 K/mm3 (1.8-7.8); Neutrophils % 59.3 % (37.0-80.0); Platelet Count 133 K/mm3 (142-424); Red Blood Count 4.28 M/mm3 (4.20-5.40); Red Cell Distribution Width 16.4 % (11.5-17.5); White Blood Count 8.9 K/mm3 (4.8-10.8)
[2020-06-30 10:56] LABS: INR 1.35 (0.9-1.1); Prothrombin Time 14.6 seconds (9.4-11.8)
[2020-06-30 14:15] LABS: Chloride 109 mmol/L (98-107)
[2020-06-30 14:16] LABS: Potassium 4.5 mmoL/L (3.5-5.1); Sodium 139 mmol/L (136-145)
[2020-06-30 14:18] LABS: Alanine Aminotransferase 41 U/L (12-78); Aspartate Amino Transferase 53 U/L (14-36); Blood Urea Nitrogen 14 mg/dl (7-17); Estimated Glomerular Filt Rate 82 ml/min (>60); GFR (African American) 99 ML/MIN (>60)
[2020-06-30 14:19] LABS: Albumin Level 3.2 g/dl (3.5-5.0); Alkaline Phosphatase 192 U/L (38-126); Anion Gap 7.5 mEq/L (5-15); Calcium 9.5 mg/dl (8.4-10.2); Carbon Dioxide 27 mmol/L (22.0-30.0); Globulin 3.1 g/dL (1.3-3.2); Glucose 118 mg/dl (74-100); Iron 100 ug/dL (37-170); Total Protein,Serum 6.3 g/dl (6.3-8.2)
[2020-06-30 14:35] LABS: Total Iron Binding Capacity 259 ug/dL (265-497)
[2020-06-30 14:54] LABS: Ferritin 199 ng/ml (11.1-264)
[2020-07-01 10:58] LABS: AFP, Tumor Marker 3.9 ng/mL (0.0-8.3)
== END ==
PROVIDERS: PCP Family Medicine; Visit Provider Nurse Practitioner Family
DX: K75.81 Nonalcoholic steatohepatitis (NASH) (principal); K74.60 Unspecified cirrhosis of liver; K76.6 Portal hypertension
CPT/HCPCS: 36415; 76705; 80053; 82105; 82140; 82728; 83540; 83550; 85025; 85610

== ENCOUNTER → 2020-07-12 15:51 | Outpatient (POV) | payer MEDICARE, SELFPAY | PROVIDERS: Visit Provider Nurse Practitioner Family | DX: Z00.00 Encounter for general adult medical examination without abnormal findings (principal) ==

== ENCOUNTER → 2020-08-27 08:57 | Outpatient (CLI) | payer MEDICARE, SELFPAY ==
--- NOTE | 2020-08-27 09:23 | US_ITS ---
PROCEDURE: US ABDOMEN LIMITED CLINICAL INDICATION: NONALCHOLIC STEATOHEPATITIS COMPARISON: CT ABDPELW/O CT ABD PELVIS W/O CONTRAST from 09/26/2014 US US ABDOMEN LIMITED from 06/30/2020 FINDINGS: PANCREAS: Unremarkable. No obvious mass or abnormal fluid collection. No ductal dilatation LIVER: The liver is small with heterogeneous echogenicity consistent with cirrhosis. There is appropriate direction of blood flow within the portal vein. The portal vein is enlarged at 18 mm. RIGHT KIDNEY: Unremarkable. Normal size and echogenicity. No hydronephrosis GALLBLADDER: Gallbladder wall is thickened. Common bile duct is normal at 4 mm. No gallstones apparent. Collateral vessels are present in the periportal region.. There is small amount of ascites IMPRESSION: Cirrhosis with portal hypertension with a small amount of ascites and collateral vessels in the periportal area. Overall not significantly changed. Gallbladder wall thickening persist. No pericholecystic fluid or biliary dilatation or gallstones apparent Dictated by: Mathew Call MD 08/27/2020 10:51 Mathew Call MD in [place] 08/27/2020 10:51
[2020-08-27 09:28] LABS: Basophils # 0.1 K/mm3 (0-0.2); Eosinophils # 0.9 K/mm3 (0.0-0.4); Eosinophils % 9.7 % (0.1-12.0); Hematocrit 39.8 % (37.0-47.0); Hemoglobin 13.4 g/dL (12.2-16.2); Lymphocytes % 21.2 % (10-50); Mean Corpuscular HGB Conc 33.5 g/dL (31.8-35.4); Mean Corpuscular Hemoglobin 29.6 pg (27.0-31.2); Mean Corpuscular Volume 88.4 fl (81-99); Mean Platelet Volume 10.4 fl (7.4-10.4); Monocytes # 0.8 K/mm3 (0.1-1.0); Monocytes % 8.7 % (1.7-9.3); Neutrophils # 5.5 K/mm3 (1.8-7.8); Neutrophils % 59.5 % (37.0-80.0); Platelet Count 192 K/mm3 (142-424); Red Cell Distribution Width 15.6 % (11.5-17.5); White Blood Count 9.2 K/mm3 (4.8-10.8)
[2020-08-27 09:40] LABS: INR 1.27 (0.9-1.1); Prothrombin Time 13.8 seconds (9.4-11.8)
[2020-08-27 10:48] LABS: Chloride 108 mmol/L (98-107); Potassium 4.4 mmoL/L (3.5-5.1); Sodium 137 mmol/L (136-145)
[2020-08-27 10:50] LABS: Blood Urea Nitrogen 18 mg/dl (7-17); Estimated Glomerular Filt Rate 82 ml/min (>60); GFR (African American) 99 ML/MIN (>60)
[2020-08-27 10:51] LABS: Alanine Aminotransferase 27 U/L (12-78); Albumin Level 2.9 g/dl (3.5-5.0); Albumin/Globulin Ratio 0.9 (1.1-1.8); Alkaline Phosphatase 209 U/L (38-126); Anion Gap 8.4 mEq/L (5-15); Aspartate Amino Transferase 42 U/L (14-36); Bilirubin,Total 2.1 mg/dl (0.2-1.3); Calcium 9.4 mg/dl (8.4-10.2); Carbon Dioxide 25 mmol/L (22.0-30.0); Globulin 3.2 g/dL (1.3-3.2); Glucose 117 mg/dl (74-100); Iron 77 ug/dL (37-170); Total Protein,Serum 6.1 g/dl (6.3-8.2)
[2020-08-27 10:52] LABS: HDL Cholesterol 79 mg/dl (40-60)
[2020-08-27 11:00] LABS: Total Iron Binding Capacity 245 ug/dL (265-497)
[2020-08-27 11:03] LABS: Direct LDL Cholesterol 64.84 mg/dL (100-129)
[2020-08-27 11:07] LABS: Chol/HDL Ratio 2.3 (1-3.5); Cholesterol 178 mg/dl (140-200); Triglycerides 87 mg/dl (30-150); VLDL Cholesterol 17 mg/dL (0-40)
[2020-08-27 11:08] LABS: Free T4 (Free Thyroxine) 2.13 ng/dl (0.78-2.19)
[2020-08-27 11:22] LABS: Thyroid Stimulating Hormone 2.26 uIU/mL (0.465-4.68)
[2020-08-27 11:26] LABS: Ferritin 187 ng/ml (11.1-264)
[2020-08-27 12:08] LABS: Ammonia 63 umol/L (9-30)
[2020-08-28 18:11] LABS: AFP, Tumor Marker 2.1 ng/mL (0.0-8.3)
== END ==
PROVIDERS: Nurse Practitioner Family; PCP Family Medicine; Visit Provider Nurse Practitioner Family
DX: K75.81 Nonalcoholic steatohepatitis (NASH) (principal); K76.6 Portal hypertension; R18.8 Other ascites; K74.60 Unspecified cirrhosis of liver; E78.5 Hyperlipidemia, unspecified; I42.9 Cardiomyopathy, unspecified
CPT/HCPCS: 36415; 76705; 80053; 80061; 80162; 82105; 82140; 82728; 83540; 83550; 84439; 84443; 85025; 85610

== ENCOUNTER 2020-10-10 18:53 | Observation (INO) | payer MEDICARE, SELFPAY ==
[2020-10-10 18:57] VITALS: BP 104/55; PULSE 107; RESP 22; TEMP 37.2; O2SAT 97; BMI 19.1
--- NOTE | 2020-10-10 19:27 | HMH.EDWEAK ---
ED Disposition Condition on Discharge: Fair - Critical Care Critical Care Time: No <Fernando Larson - Last Filed: 10/10/20 19:54> <Fernando Gutiérrez - Last Filed: 10/10/20 22:58> Clinical Impression: Severe sepsis with acute organ dysfunction Nausea and vomiting Qualifiers: Vomiting type: unspecified Vomiting Intractability: non-intractable Qualified Code(s): R11.2 - Nausea with vomiting, unspecified UTI (urinary tract infection) Qualifiers: Urinary tract infection type: site unspecified Hematuria presence: without hematuria Qualified Code(s): N39.0 - Urinary tract infection, site not specified Hypothyroidism Qualifiers: Hypothyroidism type: acquired Qualified Code(s): E03.9 - Hypothyroidism, unspecified Type 2 diabetes mellitus Qualifiers: Diabetes mellitus jail insulin use: unspecified jail insulin use status Diabetes mellitus complication status: with other specified complication Qualified Code(s): E11.69 - Type 2 diabetes mellitus with other specified complication Cirrhosis Qualifiers: Hepatic cirrhosis type: unspecified hepatic cirrhosis Ascites presence: without ascites Qualified Code(s): K74.60 - Unspecified cirrhosis of liver Disposition: Admitted As Inpatient Referrals: Blane Grullon MD [Primary Care Provider] - Attestation: On 10/10/20, the high probability of a clinically significant, sudden or life threatening deterioration of the following system(s) required my full and direct attention, intervention and personal management. The time I documented below is in addition to time spent performing reported procedures but includes the following listed in this critical care notation. Medical Decision Making - Medical Records Medical records reviewed: Yes: I reviewed the patient's medical records. - Moises Inquiry Pt receiving controlled substance: No - Lab Data Lab results reviewed: Yes: I reviewed the patient's lab results. Result diagrams: 10/10/20 19:30 <Fernando Larson - Last Filed: 10/10/20 19:54> - Lab Data Result diagrams: 10/10/20 19:30 10/10/20 19:30 - CT Data CT Scan: Abdomen, Pelvis Time Received: 22:[address] Reviewed: Yes: I have viewed the radiologist's interpretation Preliminary Findings: Abnormal (see report ) - Physician Consults Physician Consulted: jesus Reason -: Admission <Fernando Gutiérrez - Last Filed: 10/10/20 22:58> Vital Signs: 10/10/20 18:57 10/10/20 19:30 10/10/20 20:00 Temperature 99.0 F Temperature Source Oral Pulse Rate [Right Radial] 107 H 108 H 109 H Respiratory Rate 22 17 17 Blood Pressure [Right Arm] 104/55 L 111/63 121/53 L Blood Pressure Mean [Right Arm] 71 79 75 Blood Pressure Source [Right Arm] Automatic Cuff Automatic Cuff Automatic Cuff Blood Pressure Position [Right Arm] Supine Supine Supine 02 Sat by Pulse Oximetry 97 98 95 Oxygen Delivery Method Room Air Room Air Room Air 10/10/20 20:30 Temperature Temperature Source Pulse Rate [Right Radial] 99 H Respiratory Rate 17 Blood Pressure [Right Arm] 129/55 L Blood Pressure Mean [Right Arm] 79 Blood Pressure Source [Right Arm] Automatic Cuff Blood Pressure Position [Right Arm] Supine 02 Sat by Pulse Oximetry 95 Oxygen Delivery Method Room Air - Lab Data Lab Results 10/10/20 19:09: POC Glucose 404 H* 10/10/20 19:30: WBC 10.4, RBC 4.26, Hgb 12.7, Hct 37.0, MCV 86.9, MCH 29.8, MCHC 34.3, RDW 17.2, Plt Count 105 L, MPV 8.6, Neut % (Auto) 80.7 H, Lymph % (Auto) 9.9 L, [place] % (Auto) 6.0, Eos % (Auto) 2.7, Baso % (Auto) 0.6, Neut # (Auto) 8.4 H, Lymph # (Auto) 1.0, [place] # (Auto) 0.6, Eos # (Auto) 0.3, Baso # (Auto) 0.1, ESR 21 10/10/20 19:30: Sodium 128 L, Potassium 4.0, Chloride 104, Carbon Dioxide 20 L, Anion Gap 8.0, BUN 15, Creatinine 1.00, Estimated Creat Clear 36, Estimated GFR 54 L, Est GFR ( Amer) 66, Glucose 411 H*, Calcium 8.4, Total Bilirubin 3.3 H, AST 47 H, ALT 37, Alkaline Phosphatase 118, C-Reactive Protein 26.7 H, Total Protein 5.7
[2020-10-10 19:30] VITALS: BP 111/63; PULSE 108; RESP 17; O2SAT 98
[2020-10-10 19:44] LABS: Basophils # 0.1 K/mm3 (0-0.2); Basophils % 0.6 % (0.1-2.0); Eosinophils # 0.3 K/mm3 (0.0-0.4); Eosinophils % 2.7 % (0.1-12.0); Hemoglobin 12.7 g/dL (12.2-16.2); Lymphocytes % 9.9 % (10-50); Mean Corpuscular HGB Conc 34.3 g/dL (31.8-35.4); Mean Corpuscular Hemoglobin 29.8 pg (27.0-31.2); Mean Corpuscular Volume 86.9 fl (81-99); Mean Platelet Volume 8.6 fl (7.4-10.4); Monocytes # 0.6 K/mm3 (0.1-1.0); Neutrophils # 8.4 K/mm3 (1.8-7.8); Neutrophils % 80.7 % (37.0-80.0); Platelet Count 105 K/mm3 (142-424); Red Blood Count 4.26 M/mm3 (4.20-5.40); Red Cell Distribution Width 17.2 % (11.5-17.5); White Blood Count 10.4 K/mm3 (4.8-10.8)
[2020-10-10 19:59] LABS: Coronavirus 19 IgG Antibody Positive (Negative)
[2020-10-10 20:00] VITALS: BP 121/53; PULSE 109; RESP 17; O2SAT 95
[2020-10-10 20:00] LABS: Coronavirus 19 IgM Antibody Positive (Negative)
[2020-10-10 20:02] LABS: Alanine Aminotransferase 37 U/L (12-78); Albumin Level 2.7 g/dl (3.5-5.0); Albumin/Globulin Ratio 0.9 (1.1-1.8); Alkaline Phosphatase 118 U/L (38-126); Aspartate Amino Transferase 47 U/L (14-36); Bilirubin,Total 3.3 mg/dl (0.2-1.3); Blood Urea Nitrogen 15 mg/dl (7-17); Calcium 8.4 mg/dl (8.4-10.2); Carbon Dioxide 20 mmol/L (22.0-30.0); Chloride 104 mmol/L (98-107); Creatinine Clearance Estimated 36 mL/min (50-200); Estimated Glomerular Filt Rate 54 ml/min (>60); GFR (African American) 66 ML/MIN (>60); Lipase 82 U/L (23-300); Sodium 128 mmol/L (136-145); Total Protein,Serum 5.7 g/dl (6.3-8.2)
--- NOTE | 2020-10-10 20:03 | CT_ITS ---
PROCEDURE: CT ABDOMEN PELVIS W CON CLINICAL INDICATION: ABD pain Generalized abdominal pain COMPARISON: CT ABDPELW/O CT ABD PELVIS W/O CONTRAST from 09/26/2014 TECHNIQUE: IV Contrast: 75ML Isovue 370 Oral Contrast None Axial images obtained with sagittal and coronal reformats. All CT scans at the facility use one or more dose reduction, viz: automated exposure control, ma/kV adjustment per patient size (including targeted exams where dose is matched to indication, i.e. head), or iterative reconstruction technique. FINDINGS: LOWER THORAX: Nodularity is noted in both lower lobes posteriorly with atelectatic change. Artifact present from pacemaker device. ABDOMEN & PELVIS: There are distal esophageal varices. There is splenomegaly at 17 cm with varices in the upper abdomen. The liver has a cirrhotic appearance. There is mild thickening of the gallbladder wall nonspecific. The portal vein is enlarged at 17 cm.. There is limited opacification of the right portal vein which may be related to portal venous thrombosis. There is heterogeneous density of the liver on the left. This is nonspecific. There are multiple hypodense lesions throughout the pancreas measuring up to 2 cm. No renal or ureteral calculi. There is a mild amount of ascites. There is mild diffuse wall thickening of the duodenum jejunum an ileal loops and mild diffuse thickening of the colon. No evidence of appendicitis. There are colonic diverticula but no evidence of diverticulitis. Beam hardening artifact is present from the hip replacements obscuring fine detail in the pelvis. What appears to represent the endometrial cavity is thickened measuring up to 3 cm in AP dimension. Pelvic ultrasound may better evaluate. There are periumbilical varices with recanalization of the umbilical vein. Atherosclerotic changes involve the aorta and its branches. No acute bony findings. There is anterolisthesis of L4 on L5 5 mm. Bilateral hip prosthesis are present. IMPRESSION: 1. Cirrhotic hepatic morphology with findings of portal hypertension with splenomegaly distal paraesophageal splenic and umbilical varices with a small amount of ascites. Enlarged portal vein. Limited opacification of the right portal vein which could be due to portal venous thrombosis. 2. Diffuse wall thickening of the small and large bowel which may be related to portal hypertensive enteropathy/colopathy. There is colonic diverticulosis without diverticulitis. 3. 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 Patient does have a pacemaker therefore not MRI compatible. 4. Distended endometrial cavity versus endometrial mass or pelvic mass. Pelvic ultrasound may provide further evaluation. 5. Nonspecific nodularity in both lower lobes not significantly changed 6. Mild gallbladder wall thickening which may be better evaluated with ultrasound. Dictated by: Mathew Call MD 10/11/2020 10:22 Mathew Call MD in [place] 10/11/2020 10:22
[2020-10-10 20:06] LABS: Erythrocyte Sedimentation Rate 21 mm/hr (0-30)
[2020-10-10 20:07] LABS: Glucose 411 mg/dl (74-100)
[2020-10-10 20:08] LABS: C-Reactive Protein 26.7 mg/L (0-4)
[2020-10-10 20:12] LABS: Adenovirus,PCR Not Detected (NotDetected); Bordetella Pertussis Not Detected (NotDetected); Chlamydophila Pneumoniae, PCR Not Detected (NotDetected); Coronavirus 19, PCR Not Detected (NotDetected); Coronavirus 229E Not Detected (NotDetected); Coronavirus NL63 Not Detected (NotDetected); Coronavirus OC43 Not Detected (NotDetected); Coronovirus HKU1,PCR Not Detected (NotDetected); Human Metapneumovirus Not Detected (NotDetected); Influenza A, PCR Not Detected (NotDetected); Influenza AH1, 2009 Not Detected (NotDetected); Influenza AH1, PCR Not Detected (NotDetected); Influenza AH3,PCR Not Detected (NotDetected); Influenza B, PCR Not Detected (NotDetected); Mycoplasma Pneumoniae, PCR Not Detected (NotDetected); Parainfluenza 1, PCR Not Detected (NotDetected); Parainfluenza 2, PCR Not Detected (NotDetected); Parainfluenza 3, PCR Not Detected (NotDetected); Parainfluenza 4, PCR Not Detected (NotDetected); Respiratory Syncytial Virus Not Detected (NotDetected); Rhinovirus/Enterovirus Not Detected (NotDetected)
--- NOTE | 2020-10-10 20:18 | PC.NURSE ---
Critical Glucose called from lab Dr Gutiérrez notified
[2020-10-10 20:22] LABS: Procalcitonin 0.249 ng/mL (0.0-2.0)
[2020-10-10 20:29] LABS: Lactic Acid 2.7 mmol/L (0.7-2.1)
[2020-10-10 20:30] VITALS: BP 129/55; PULSE 99; RESP 17; O2SAT 95
[2020-10-10 20:54] LABS: Microscopic, Urine URINE MICROSCOPIC (MICROSCOPIC)
[2020-10-10 20:59] LABS: Appearance,Urine CLOUDY (Clear); Bilirubin,Urine Negative (Negative); Blood, Urine 3+ (Negative); Color,Urine YELLOW (Yellow); Glucose,Urine (UA) 3+ (Negative); Ketones,Urine Negative (Negative); Leukocyte Esterase,Urine 1+ (Negative); Nitrate,Urine Negative (Negative); PH,Urine 5.5 (5.0-8.5); Protein,Urine Negative (Negative); Urobilinogen,Urine 0.2 EU/dl (0.2)
[2020-10-10 21:15] LABS: POC Glucose,Bedside 404 (70-110)
[2020-10-10 21:22] LABS: WBC,Urine 20-50 #/hpf (0-3)
[2020-10-10 21:49] LABS: Amylase < 30 U/L (30-110)
[2020-10-10 21:54] LABS: INR 1.42 (0.9-1.1); Prothrombin Time 15.3 seconds (9.4-11.8)
[2020-10-10 22:00] LABS: POC Glucose,Bedside 307 (70-110)
[2020-10-10 22:07] LABS: Ammonia 23 umol/L (9-30)
--- NOTE | 2020-10-10 22:36 | PC.NURSE ---
Brock speaking to on site services specialist md at this time
[2020-10-10 23:00] VITALS: BP 93/61; PULSE 86; RESP 18; O2SAT 96
[2020-10-11] VITALS (11 sets, daily range): BP systolic 81–128; BP diastolic 42–70; PULSE 65–93; RESP 17–20; TEMP 36.4–36.9; O2SAT 95–98; BMI 22.8
[2020-10-11 00:15] LABS: Reflex Lactic Add Lactic Reflex
[2020-10-11 00:47] LABS: Lactic Acid Follow Up (RFLX 1) 1.6 mmol/L (0.7-2.1)
--- NOTE | 2020-10-11 01:39 | PC.NURSE ---
patient up to floor via stretcher.
[2020-10-11 02:07] LABS: POC Glucose,Bedside 196 (70-110)
[2020-10-11 02:23] LABS: T4 (Thyroxine) 9.1 ug/dl (5.53-11.0); Theophylline 21.3 ug/ml (10-20)
[2020-10-11 02:37] LABS: Thyroid Stimulating Hormone 2.49 uIU/mL (0.465-4.68)
[2020-10-11 07:04] LABS: POC Glucose,Bedside 128 (70-110)
[2020-10-11 07:10] LABS: Alanine Aminotransferase 36 U/L (12-78); Albumin Level 2.6 g/dl (3.5-5.0); Albumin/Globulin Ratio 0.9 (1.1-1.8); Alkaline Phosphatase 118 U/L (38-126); Anion Gap 11.1 mEq/L (5-15); Aspartate Amino Transferase 47 U/L (14-36); Bilirubin,Total 3.2 mg/dl (0.2-1.3); Blood Urea Nitrogen 16 mg/dl (7-17); Calcium 8.3 mg/dl (8.4-10.2); Carbon Dioxide 18 mmol/L (22.0-30.0); Chloride 104 mmol/L (98-107); Creatinine Clearance Estimated 43 mL/min (50-200); Estimated Glomerular Filt Rate 61 ml/min (>60); GFR (African American) 74 ML/MIN (>60); Globulin 2.9 g/dL (1.3-3.2); Magnesium 1.4 mg/dl (1.6-2.3); Potassium 4.1 mmoL/L (3.5-5.1); Sodium 129 mmol/L (136-145); Total Protein,Serum 5.5 g/dl (6.3-8.2)
[2020-10-11 07:40] LABS: Glucose 147 mg/dl (74-100)
--- NOTE | 2020-10-11 08:10 | HMH.PHAVTE ---
[facility] Pharmacy VTE Monitoring - Patient Demographics Admission date: 10/10/20 Report Date: 10/11/20 Time: 08:10 Allergies/Adverse Reactions: Patient Allergies aspirin Allergy (Severe, Verified 10/11/20 02:07) Difficulty Breathing iodine Allergy (Severe, Verified 10/11/20 02:07) Difficulty Breathing sulfite Allergy (Severe, Verified 10/11/20 02:07) Difficulty Breathing tolmetin Allergy (Severe, Verified 10/11/20 02:07) Difficulty Breathing yellow dye Allergy (Severe, Verified 10/11/20 02:07) Difficulty Breathing cephalexin Allergy (Unknown, Verified 10/11/20 02:07) Hives, Wheezing shellfish derived Allergy (Unknown, Verified 10/11/20 02:07) Difficulty Breathing Height: 1.55 m Weight: 54.885 kg Patient Problems: Current Active Problems Urinary tract infection (Acute) Type 2 diabetes mellitus (Chronic) Nausea and vomiting (Acute) Severe sepsis with acute organ dysfunction (Acute) Hypothyroidism (Acute) Cirrhosis (Acute) - VTE Risk Labs: VTE Related Lab Results Hgb 12.7 g/dL (12.2-16.2) 10/10/20 19:30 Hct 37.0 % (37.0-47.0) 10/10/20 19:30 Plt Count 105 K/mm3 (142-424) L 10/10/20 19:30 PT 15.3 seconds (9.4-11.8) H 10/10/20 19:30 INR 1.42 (0.9-1.1) H 10/10/20 19:30 BUN 16 mg/dl (7-17) 10/11/20 05:40 Creatinine 0.90 mg/dl (0.52-1.04) 10/11/20 05:40 Estimated Creat Clear 43 mL/min (50-200) 10/11/20 05:40 Was VTE Risk Assessment Performed: Yes VTE Score: 8 VTE Risk Level: Moderate Risk Clinical Trial Participant: No - Prophylaxis VTE Prophylaxis Ordered?: Yes Types of VTE Prophylaxis: TEDS Knee High
--- NOTE | 2020-10-11 08:13 | HMH.HP ---
*Admission Date: 10/10/20 <MarinOlivia simmons - 10/11/20 08:50> *Chief complaint: Abdominal pain; altered mental status <Olivia Marin 10/11/20 08:50> *History of present illness: Ms. Dorman is a 74-year-old female patient who presented to [facility] emergency room with nausea and weakness and suspected UTI. She has a history of hypertension, type 2 diabetes mellitus, asthmatic bronchitis, dilated cardiomyopathy, cirrhosis with portal hypertension and frequent UTIs. Antoinette states that she has not been feeling well for the last 3 days. The nausea began on 10/08/2020 and she did vomit on that day. She states she has not vomited since. She has since had stomach bloating and cramping in her upper abdomen. She denies having any diarrhea but does have some dysuria. She denies any hematemesis or hematochezia. She denies chest pain and has her usual shortness of breath with exertion. She wears oxygen as needed at home. With evaluation in the emergency room sodium was found to be low at 128 with potassium of 4, BUN was 15 and creatinine is 1. CT of the abdomen/pelvis was abnormal but official reading is not yet available. She was noted to have a low-grade fever at 99. Blood sugar was elevated at 404. She received fluid boluses and was admitted for further evaluation and treatment. She also received some insulin and Ketorolac 30 mg plus Zofran IV. She states she feels better this morning. She is hungry. She has not slept. She continues with some abdominal cramping but denies nausea. Bilirubin noted to be elevated at 3.3. AST at 47 and ALT 37 and alkaline phosphatase at 118. Repeat labs show a sodium of 129 potassium of 4.1. Bilirubin remains elevated at 3.2. <TomasSierraOlivia 10/11/20 08:50> [facility] History Medical History: Reports:: Asthma, Cardiomyopathy, Congestive Heart Failure, Depression, Diabetes Mellitus Type 2, Gastroesophageal Reflux Disease(GERD), Hyperlipidemia, Hypertension, Internal Pacemaker, Lung Disease, Supraventricular Tachycardia, Urinary Tract Infection Denies:: Cancer, Diabetes Mellitus Type 1, MRSA, Palpitations, Seizures <Olivia Marin 10/11/20 08:50> *Have you ever received a pneumonia vaccine?: Yes <Olivia Marin 10/11/20 08:50> *Have you received a flu vaccine this season?: Yes <Olivia Marin 10/11/20 08:50> Other Medical History: Reports: Anemia, Arthritis, Hoarseness, Hypothyroidism, Thyroid Disease <Olivia Marin 10/11/20 08:50> Comment:: On alcoholic cirrhosis. <Olivia Marin 10/11/20 08:50> Laterality Cases: Bilateral: Arthroscopy Hip, Arthroscopy Knee, Cataract, Tonsillectomy, Total Hip Replacement, Total Knee Replacement <Olivia Marin 10/11/20 08:50> Other Surgeries: Yes: Cardiac Catheterization, Colonoscopy, Pacemaker, Tubal Ligation, Other <Olivia Marin 10/11/20 08:50> Amputation: No <Olivia Marin 10/11/20 08:50> Fractures: No <Olivia Marin 10/11/20 08:50> - *Social History Smoking Status: Never smoker <Olivia Marin 10/11/20 08:50> Alcohol Intake: never <Olivia Marin 10/11/20 08:50> Substance Use Type: denies use <Olivia Marin 10/11/20 08:50> *Occupational Status:: retired <Olivia Marin 10/11/20 08:50> Housing: house <Olivia Marin 10/11/20 08:50> Household Members: none <Olivia Marin 10/11/20 08:50> *Travel in the last 8 weeks: None <Olivia Marin 10/11/20 08:50> - Psychiatric History Pschychiatric History:: Reports:: Depression <Olivia Marin 10/11/20 08:50> Family Hx:: Asthma, Cancer, Coronary Artery Disease, Heart Attack, Hypertension <Olivia Marin 10/11/20 08:50> Review of Systems - Constitutional Reports fatigue, Reports fever(s), Reports lack of energy, Denies headache(s) <Olivia Marin 10/11/20 08:50> - Eyes Denies change in vision <Olivia Marin 10/11/20 08:50> - ENT Denies ear pain, Denies sore throat <Olivia Marin - 10/11/20 08:50> - *Cardiovascular Reports shortness of breath, Denies chest
[2020-10-11 08:23] LABS: Basophils # 0.1 K/mm3 (0-0.2); Basophils % 0.7 % (0.1-2.0); Eosinophils # 0.4 K/mm3 (0.0-0.4); Eosinophils % 3.9 % (0.1-12.0); Hematocrit 39.6 % (37.0-47.0); Hemoglobin 13.4 g/dL (12.2-16.2); Lymphocytes # 1.1 K/mm3 (0.7-4.5); Lymphocytes % 11.7 % (10-50); Mean Corpuscular HGB Conc 33.8 g/dL (31.8-35.4); Mean Corpuscular Volume 88.8 fl (81-99); Mean Platelet Volume 9.5 fl (7.4-10.4); Monocytes # 0.6 K/mm3 (0.1-1.0); Monocytes % 6.9 % (1.7-9.3); Neutrophils # 6.9 K/mm3 (1.8-7.8); Neutrophils % 76.8 % (37.0-80.0); Platelet Count 83 K/mm3 (142-424); Red Blood Count 4.46 M/mm3 (4.20-5.40); Red Cell Distribution Width 17.2 % (11.5-17.5)
--- NOTE | 2020-10-11 10:34 | HMH.PHAINT ---
clarified home medication list using list from home pharmacy, [facility] office and pt interview
[2020-10-11 12:56] LABS: POC Glucose,Bedside 206 (70-110)
--- NOTE | 2020-10-11 20:28 | PC.NURSE ---
PATIENT IS A&O X4, LUNGS ARE CLEAR, PULSES ARE EQUAL. NO CONCERNS DURING THIS RN SHIFT.
[2020-10-11 20:52] LABS: POC Glucose,Bedside 292 (70-110)
[2020-10-11 22:03] LABS: POC Glucose,Bedside 222 (70-110)
[2020-10-12] VITALS: BP 121/76; PULSE 85; RESP 18; TEMP 36.8; O2SAT 97
[2020-10-12 04:00] VITALS: BP 100/58; PULSE 75; RESP 18; TEMP 36.8; O2SAT 98
[2020-10-12 05:26] VITALS: BMI 23.2
[2020-10-12 06:38] LABS: Alanine Aminotransferase 29 U/L (12-78); Albumin Level 2.2 g/dl (3.5-5.0); Albumin/Globulin Ratio 0.8 (1.1-1.8); Alkaline Phosphatase 110 U/L (38-126); Anion Gap 5.7 mEq/L (5-15); Aspartate Amino Transferase 56 U/L (14-36); Bilirubin,Total 1.5 mg/dl (0.2-1.3); Blood Urea Nitrogen 13 mg/dl (7-17); Calcium 7.6 mg/dl (8.4-10.2); Carbon Dioxide 19 mmol/L (22.0-30.0); Chloride 110 mmol/L (98-107); Creatinine Clearance Estimated 44 mL/min (50-200); Estimated Glomerular Filt Rate 98 ml/min (>60); GFR (African American) 118 ML/MIN (>60); Globulin 2.8 g/dL (1.3-3.2); Glucose 143 mg/dl (74-100); Potassium 3.7 mmoL/L (3.5-5.1); Sodium 131 mmol/L (136-145)
--- NOTE | 2020-10-12 07:00 | PC.NURSE ---
no acute changes since prior assessment, pt is AxOx4, has ambulated with SB assist to bathroom, has had no complaints of SOA or chest pain
[2020-10-12 07:50] VITALS: BP 97/42; PULSE 85; RESP 16; TEMP 36.8; O2SAT 97
[2020-10-12 08:25] VITALS: BP 105/62
--- NOTE | 2020-10-12 09:10 | HMH.PTEV ---
Physical Therapy Evaluation Rehab PT IP Evaluation Start: 10/12/20 08:43 Freq: ONCE Status: Active Protocol: Document 10/12/20 09:07 CHITOLUCIEN (Rec: 10/12/20 09:10 MARKUS [id number]) Subjective/History History History 74 yowf adm to [facility] with UTI, AMS and sepsis. She reports she lives independently with 5 steps to enter the home. She does not use an AD at baseline . Subjective Subjective Pt with no c/o this am, feeling much better. Rehab PT IP Eval Objective Appearance Patient Behavior Appropriate Patient Orientation Person,Place,Time Difficulty following instructions none Speech Pattern Clear Ambulation Patient Able to Ambulate Yes Ambulation Observation IP General Gait Pattern Observation No Deviations/Normal Ambulation Distance (feet) 40 Ambulation Assistive Device None Ambulation Ability Independent Balance Ability to Arise Able, w/o using arms Standing Balance Narrow stance w/o support Dynamic Sitting Balance Ability Normal Dynamic Standing Balance Ability Normal Transfers Bed Transfer Ability Independent Chair Transfer Ability Independent Sit to Stand Bed Transfer Ability Independent Sit to Stand Chair Transfer Ability Independent ROM All Extremities PT ROM Status WFL MMT All Extremities PT MMT WFL Rehab PT IP prob,goals,plan Problems Date of Evaluation: 10/12/20 Discharge Plan PT Discharge Plan Pt is at baseline for all mobility and is appropriate to return home once medically stable. G -code Required No Eval Complexity Eval Charge Codes 25921 - Moderate Complexity PHYSICIAN CERTIFICATION: I certify the specified therapy services for Antoinette Dorman are required, authorized, and reviewed every 30 days.
--- NOTE | 2020-10-12 09:11 | HMH.ACPN2 ---
<Olivia Marin - Last Filed: 10/12/20 09:11> Internal Medicine - PN: Subj *Date: 10/12/20 *Time: 09:11 Interval history: Up at bedside when entering room. Patient denies dizziness or difficulty with walking. She denies chest pain and shortness of breath. She states her abdominal discomfort has resolved. She did have a normal bowel movement yesterday. She is voiding QS without dysuria. She feels she is eating okay. Exam Vital signs and Labs for Last 24 Hours: Temp Pulse Resp BP Pulse Ox 98.2 F 85 16 105/62 L 97 10/12/20 07:50 10/12/20 07:50 10/12/20 07:50 10/12/20 08:25 10/12/20 07:50 Laboratory Results - last 24 hr 10/11/20 11:54: POC Glucose 206 H 10/11/20 17:12: POC Glucose 222 H 10/11/20 20:29: POC Glucose 292 H 10/12/20 06:11: Sodium 131 L, Potassium 3.7, Chloride 110 H, Carbon Dioxide 19 L, Anion Gap 5.7, BUN 13, Creatinine 0.60 D, Estimated Creat Clear 44, Estimated GFR 98, Est GFR ( Amer) 118 D, Glucose 143 H, Calcium 7.6 L, Total Bilirubin 1.5 H, AST 56 H, ALT 29, Alkaline Phosphatase 110, Total Protein 5.0 L, Albumin 2.2 L D, Globulin 2.8, Albumin/Globulin Ratio 0.8 L I & O for Last 24 hours: Intake & Output 10/09/20 10/10/20 10/11/20 10/12/20 11:59 11:59 11:59 11:59 Intake Total 3238 / 3238 1227 / 1227 Balance 3238 / 3238 1227 / 1227 Weight 121 lb 123 lb 2.368 oz Microbiology Reports for the Last 24 Hours: Microbiology 10/10/20 20:35 Urine,Catheterized Urine Culture - Preliminary NO GROWTH AFTER 24 HOURS - Constitutional no acute distress Comments: Standing at bedside and appears stable. - *Routine Respiratory Exam Present: wheezes (Rare wheeze in left upper lobe) - *Routine Cardiovascular Exam Present: RRR - *Routine Abdominal Exam Present: soft, normoactive bowel sounds. Absent: tenderness, distended - *Routine Extremities Exam Absent: edema, calf tenderness - *Routine Neurological Exam Present: alert, oriented X3 Assessment and Plan (1) Urinary tract infection Status: Acute Qualifiers: Urinary tract infection type: site unspecified Hematuria presence: without hematuria Qualified Code(s): N39.0 - Urinary tract infection, site not specified Category: Medical Code(s): N39.0 - Urinary tract infection, site not specified (2) Severe sepsis with acute organ dysfunction Status: Acute Category: Medical Code(s): A41.9 - Sepsis, unspecified organism; R65.20 - Severe sepsis without septic shock (3) Nausea and vomiting Status: Acute Qualifiers: Vomiting type: unspecified Vomiting Intractability: non-intractable Qualified Code(s): R11.2 - Nausea with vomiting, unspecified Category: Medical Code(s): R11.2 - Nausea with vomiting, unspecified (4) Cirrhosis Status: Acute Qualifiers: Hepatic cirrhosis type: unspecified hepatic cirrhosis Ascites presence: without ascites Qualified Code(s): K74.60 - Unspecified cirrhosis of liver Category: Medical Code(s): K74.60 - Unspecified cirrhosis of liver (5) Hypothyroidism Status: Chronic Qualifiers: Hypothyroidism type: acquired Qualified Code(s): E03.9 - Hypothyroidism, unspecified Category: Medical Code(s): E03.9 - Hypothyroidism, unspecified (6) Type 2 diabetes mellitus Status: Chronic Qualifiers: Diabetes mellitus care home insulin use: unspecified buttermaker helper insulin use status Diabetes mellitus complication status: with other specified complication Qualified Code(s): E11.69 - Type 2 diabetes mellitus with other specified complication Category: Medical Code(s): E11.9 - Type 2 diabetes mellitus without complications (7) Fever Status: Acute Category: Medical Code(s): R50.9 - Fever, unspecified (8) Asthma Status: Chronic Category: Medical Code(s): J45.909 - Unspecified asthma, uncomplicated (9) Dilated cardiomyopathy Status: Chronic Category: Medical Co
--- NOTE | 2020-10-12 10:09 | SW/DCPLANNER ---
I have spoke with this patient regarding discharge plans. Patient stated that she lives at home alone and does well at home. Patient stated that she does NOT use any DME and does not need any at this time. Patient has refused home health services. PT stated that patient is independent with mobility. Patient stated that her son and daughter in law live close by and check on her often. Patient will discharge home today.
[2020-10-12 10:32] VITALS: PULSE 79
[2020-10-12 11:36] VITALS: BP 107/56; PULSE 82; RESP 20; TEMP 36.8; O2SAT 97
[2020-10-12 12:35] LABS: POC Glucose,Bedside 158 (70-110)
--- NOTE | 2020-10-12 15:11 | HMH.DCSUM ---
General - General Admission date:: 10/11/20 <Blane Grullon - 11/02/20 12:41> 10/11/20 <Mamie Telles - 10/12/20 15:18> Discharge date: 10/12/20 <Mamie Telles - 10/12/20 15:18> HPI HPI: Ms. Dorman is a 74-year-old female patient who presented to [facility] emergency room with nausea and weakness and suspected UTI. She has a history of hypertension, type 2 diabetes mellitus, asthmatic bronchitis, dilated cardiomyopathy, cirrhosis with portal hypertension and frequent UTIs. Antoinette states that she has not been feeling well for the last 3 days. The nausea began on 10/08/2020 and she did vomit on that day. She states she has not vomited since. She has since had stomach bloating and cramping in her upper abdomen. She denies having any diarrhea but does have some dysuria. She denies any hematemesis or hematochezia. She denies chest pain and has her usual shortness of breath with exertion. She wears oxygen as needed at home. With evaluation in the emergency room sodium was found to be low at 128 with potassium of 4, BUN was 15 and creatinine is 1. CT of the abdomen/pelvis was abnormal but official reading is not yet available. She was noted to have a low-grade fever at 99. Blood sugar was elevated at 404. She received fluid boluses and was admitted for further evaluation and treatment. She also received some insulin and Ketorolac 30 mg plus Zofran IV. She states she feels better this morning. She is hungry. She has not slept. She continues with some abdominal cramping but denies nausea. Bilirubin noted to be elevated at 3.3. AST at 47 and ALT 37 and alkaline phosphatase at 118. Repeat labs show a sodium of 129 potassium of 4.1. Bilirubin remains elevated at 3.2. <Mamie Telles - 10/12/20 15:18> Hospital Course Hospital Course: The patient's abdominal pelvic CT showed mild gallbladder wall thickening, a distended endometrial cavity versus an endometrial or pelvic mass, hypodense lesions throughout the pancreas, and cirrhotic hepatic morphology with findings of portal hypertension. She was admitted and started on IV Rocephin as well as sliding scale insulin and IV fluids. By 10/12/2020, she was feeling better and was able to eat. Her symptoms improved with the antibiotics. A PT consult was ordered for stability. She did well with therapy and they felt she could return home. Her urine culture results showed no growth likely because she was on Macrodantin at home. She improved with the Rocephin and was therefore stable to be discharged home on oral Ceftin. <Mamie Telles - 10/12/20 15:18> Objective Vital signs: Temp Pulse Resp BP Pulse Ox 98.3 F 82 20 107/56 L 97 10/12/20 11:36 10/12/20 11:36 10/12/20 11:36 10/12/20 11:36 10/12/20 11:36 <YadiBlane Francisco - 11/02/20 12:41> Temp Pulse Resp BP Pulse Ox 98.3 F 82 20 107/56 L 97 10/12/20 11:36 10/12/20 11:36 10/12/20 11:36 10/12/20 11:36 10/12/20 11:36 <Mamie Telles - 10/12/20 15:18> Narrative: - Constitutional no acute distress Comments: Lying comfortably in the bed - *Routine HEENT Exam Head: Present: normocephalic, atraumatic Eye: Present: PERRL. Absent: conjunctival icterus, scleral injection ENT: Present: mucous membranes dry, oropharynx clear - *Routine Neck Exam Present: supple, JVD. Absent: carotid bruit, lymphadenopathy, thyromegaly - *Routine Respiratory Exam Present: crackles (Posteriorly; bilaterally). Absent: wheezes - *Routine Cardiovascular Exam Present: RRR - *Routine Abdominal Exam Present: soft, normoactive bowel sounds. Absent: tenderness, distended, guarding Comments: Abdominal varices - *Routine Extremities Exam Absent: edema, calf tenderness - *Routine Neurological Exam Present: alert, oriented X3 (Converses normally. Good historian today.) <Mamie Telles - 10/12/20 15:18> Results Labs on day of
--- NOTE | 2020-10-12 15:14 | PC.NURSE ---
THIS RN PROVIDED D/C INSTRUCTIONS TO PATIENT. PATIENT VERBALIZED AN UNDERSTANDING. NO NEW CONCERNS AT D/C.
== END 2020-10-12 13:50 | disposition home or self-care (01) ==
LOC: ER 22:58 → 2ND 10-11 05:26
PROVIDERS: Emergency Medicine; Admitting Provider Family Medicine; Emergency Provider Emergency Medicine; PCP Family Medicine; Visit Provider Family Medicine
DX: N39.0 Urinary tract infection, site not specified (principal); K74.60 Unspecified cirrhosis of liver; E03.9 Hypothyroidism, unspecified; E11.9 Type 2 diabetes mellitus without complications; I42.0 Dilated cardiomyopathy; E80.6 Other disorders of bilirubin metabolism; Z88.8 Allergy status to other drugs, medicaments and biological substances; Z79.51 Long term (current) use of inhaled steroids; Z79.4 Long term (current) use of insulin; Z79.899 Other long term (current) drug therapy
CPT/HCPCS: 36415; 74177; 80053; 80162; 80198; 81001; 82140; 82150; 82962; 83605; 83690; 83735; 84145; 84436; 84443; 85025; 85610; 85651; 86140; 86328; 87040; 87086; 87088; 87186; 87581; 87633; 87798; 96365; 96366; 96375; 97162; 99285; G0378; J2405; Q9967; U0003

== ENCOUNTER → 2020-11-12 12:58 | Outpatient (CLI) | payer MEDICARE, SELFPAY ==
--- NOTE | 2020-11-12 13:07 | US_ITS ---
PROCEDURE: US PELVIC CLINICAL INDICATION: THICKENED ENDOMETRIUM COMPARISON: CT CT ABDOMEN PELVIS W CON from 10/10/2020 FINDINGS: The uterus is 8 x 5 x 6 cm. The endometrium is moderately thickened at 2.7 cm. The right ovary is 2 x 2 cm in the left ovary is 2 x 2 cm. Ascites is present with fluid in the pelvis. IMPRESSION: Grossly thickened endometrium. Differential diagnosis includes endometrial hyperplasia, endometrial carcinoma, endometrial polyp, or hormonal replacement therapy among other less common entities.. Dictated by: Mathew Call MD 11/12/2020 17:44 Mathew Call MD in [place] 11/12/2020 17:44
== END ==
PROVIDERS: PCP Family Medicine; Visit Provider Family Medicine
DX: R93.89 Abnormal findings on diagnostic imaging of other specified body structures (principal)
CPT/HCPCS: 76856

== ENCOUNTER → 2020-11-13 14:27 | Outpatient (CLI) | payer MEDICARE, SELFPAY | PROVIDERS: Visit Provider Family Medicine | DX: R30.0 Dysuria (principal) | CPT/HCPCS: 87086 ==

== ENCOUNTER → 2020-11-16 15:37 | Outpatient (CLI) | payer MEDICARE, SELFPAY ==
[2020-11-16 16:20] LABS: Ammonia 15 umol/L (9-30)
[2020-11-16 17:22] LABS: Anion Gap 6.4 mEq/L (5-15); Blood Urea Nitrogen 15 mg/dl (7-17); Carbon Dioxide 27 mmol/L (22.0-30.0); Chloride 107 mmol/L (98-107); Estimated Glomerular Filt Rate 82 ml/min (>60); GFR (African American) 99 ML/MIN (>60); Glucose 214 mg/dl (74-100); Potassium 4.4 mmoL/L (3.5-5.1); Sodium 136 mmol/L (136-145)
[2020-11-16 17:52] LABS: Thyroid Stimulating Hormone 0.46 uIU/mL (0.465-4.68)
== END ==
PROVIDERS: Visit Provider Family Medicine
DX: E03.9 Hypothyroidism, unspecified (principal); K74.60 Unspecified cirrhosis of liver
CPT/HCPCS: 36415; 80048; 82140; 84443

== ENCOUNTER → 2020-11-23 13:24 | Outpatient (CLI) | payer MEDICARE, SELFPAY | PROVIDERS: PCP Family Medicine; Visit Provider Internal Medicine Clinical Cardiac Electrophysiology | DX: Z01.818 Encounter for other preprocedural examination (principal); Z11.52 Encounter for screening for COVID-19 | CPT/HCPCS: U0003 ==

== ENCOUNTER → 2021-02-08 10:18 | Outpatient (CLI) | payer MEDICARE, SELFPAY ==
--- NOTE | 2021-02-08 10:37 | XR_ITS ---
PROCEDURE: XR CHEST 2V CLINICAL HISTORY: ASTHMA,WELLNESS CHECK UP COMPARISON: CR CXR2V XR chest 2V from 09/13/2018 CR XR CHEST PORTABLE from 11/27/2019 CR XR CHEST 2V from 12/01/2019 FINDINGS: Normal heart size. Coronary artery calcifications and/or stent noted. Biventricular and right atrial pacemaker leads are present from left subclavian approach. Previously noted right upper lobe pneumonia has resolved. No lobar consolidation or collapse. Mild degenerative changes thoracic spine. IMPRESSION: No acute findings. Dictated by: Mathew Call MD 02/08/2021 11:07 Mathew Call MD in [place] 02/08/2021 11:07
== END ==
PROVIDERS: PCP Family Medicine; Visit Provider Family Medicine
DX: I42.9 Cardiomyopathy, unspecified (principal)
CPT/HCPCS: 71046

== ENCOUNTER → 2021-03-10 12:27 | Outpatient (CLI) | payer MEDICARE, SELFPAY ==
--- NOTE | 2021-03-10 12:32 | XR_ITS ---
PROCEDURE: XR DEXA AXIAL SKELETON CLINICAL HISTORY: OSTEOPOROSIS COMPARISON: CR BONE3 BONE DENSITOMETRY(HIP:LT SPINE from 07/24/2017 FINDINGS: The right forearm BMD is 0.473 with a T-score of -3.7. The left forearm BMD is 0.478 with a T-score of -3.6. The lumbar spine BMD is 1.004 with a T-score of -0.4. Previously the lowest density was in the forearm with a T-score of -2.3 the IMPRESSION: This patient is considered osteoporotic according to the World Health Organization criteria. Fracture risk is high. Treatment is advised. Based on these results a follow-up exam is recommended in 1 year. Dictated by: Mathew Call MD 03/11/2021 04:42 Mathew Call MD in [place] 03/11/2021 04:42
--- NOTE | 2021-03-10 12:40 | MM_ITS ---
PROCEDURE INFORMATION: Exam: MG Screening 3D Mammography Exam date and time: 03/10/2021 12:40 PM Age: 75 years old Clinical indication: Encounter for screening mammogram for malignant neoplasm of breast TECHNIQUE: Imaging protocol: Screening tomosynthesis and 2D mammography including computer-aided detection (CAD) when performed. COMPARISON: 1. MG MM DIG SCREENING MAMM BI W/CAD 08/28/2019 10:29 AM 2. MG SCBI MM Dig screening mamm BI w/CAD 07/29/2018 9:44 AM 3. MG DMSB DIG MAMM-SCREEN XAVIER W/CAD 07/24/2017 10:12 AM FINDINGS: MAMMOGRAPHY: Breast composition: The breasts are heterogeneously dense, which may obscure small masses. Mass: No new suspicious masses. Architectural distortion: No suspicious distortion. Calcifications: No suspicious calcifications. Asymmetric density: None. Skin thickening: None. Axillary adenopathy: None. Partial obscuration of the left axilla on MLO projection secondary to overlying cardiac pacing device. Images are best obtainable. IMPRESSION: No mammographic evidence of malignancy. Annual screening is recommended unless otherwise clinically indicated. ASSESSMENT: BI-RADS Category 2: Benign
== END ==
PROVIDERS: PCP Family Medicine; Visit Provider Family Medicine
DX: Z12.31 Encounter for screening mammogram for malignant neoplasm of breast (principal); M81.0 Age-related osteoporosis without current pathological fracture
CPT/HCPCS: 77063; 77067; 77080

== ENCOUNTER → 2021-03-18 11:26 | Outpatient (CLI) | payer MEDICARE, SELFPAY ==
--- NOTE | 2021-03-18 12:52 | PC.NURSE ---
03/18/21 1140 Spoke with Colleen Navas regarding patient's Prolia dose scheduled for today. Patient is scheduled to have dental implants x4 in May. inquired if safe to administer Prolia based on upcoming dental procedures. Dentist office closed today and unable to be reached per pharmacist. Patient rescheduled for 03/24/21 at 1300/pharmacist will confirm ok to administer prior to patient arrival that day.
== END ==
PROVIDERS: Visit Provider Family Medicine
DX: M81.0 Age-related osteoporosis without current pathological fracture (principal)

== ENCOUNTER 2021-03-21 14:46 | Outpatient (CLI) | payer MEDICARE, SELFPAY ==
[2021-03-21 15:15] VITALS: BP 101/54; PULSE 76; RESP 18; O2SAT 97
== END 2021-03-21 15:15 | disposition home or self-care (01) ==
LOC: INF 14:52
PROVIDERS: Visit Provider Family Medicine
DX: M81.0 Age-related osteoporosis without current pathological fracture (principal)
CPT/HCPCS: 96372; J0897

== ENCOUNTER → 2021-05-03 13:33 | Outpatient (CLI) | payer MEDICARE, SELFPAY | PROVIDERS: Visit Provider Physician Assistant | DX: R30.0 Dysuria (principal) | CPT/HCPCS: 87086 ==

== ENCOUNTER → 2021-05-16 15:40 | Outpatient (POV) | payer MEDICARE, SELFPAY | PROVIDERS: Visit Provider Nurse Practitioner Family | DX: Z00.00 Encounter for general adult medical examination without abnormal findings (principal) ==

== ENCOUNTER → 2021-05-16 16:37 | Outpatient (CLI) | payer MEDICARE, SELFPAY ==
[2021-05-16 16:44] LABS: MANUAL DIFFERENTIAL MANUAL DIFFERENTIAL (MANUAL DIFF)
[2021-05-16 17:34] LABS: INR 1.14 (0.9-1.1); Prothrombin Time 13.3 seconds (10.1-12.5)
[2021-05-16 17:37] LABS: Ammonia 38 umol/L (9-30)
[2021-05-16 18:03] LABS: Basophils # 0.1 K/mm3 (0-0.2); Basophils % 1.1 % (0.1-2.0); Eosinophils # 0.8 K/mm3 (0.0-0.4); Eosinophils % 9.1 % (0.1-12.0); Hematocrit 39.9 % (37.0-47.0); Hemoglobin 13.3 g/dL (12.2-16.2); Lymphocytes # 1.5 K/mm3 (0.7-4.5); Lymphocytes % 17.6 % (10-50); Mean Corpuscular HGB Conc 33.3 g/dL (31.8-35.4); Mean Corpuscular Hemoglobin 31.1 pg (27.0-31.2); Mean Corpuscular Volume 93.4 fl (81-99); Mean Platelet Volume 9.5 fl (7.4-10.4); Monocytes # 0.8 K/mm3 (0.1-1.0); Monocytes % 9.6 % (1.7-9.3); Neutrophils # 5.3 K/mm3 (1.8-7.8); Neutrophils % 62.5 % (37.0-80.0); Platelet Count 116 K/mm3 (142-424); Red Blood Count 4.28 M/mm3 (4.20-5.40); Red Cell Distribution Width 16.5 % (11.5-17.5); White Blood Count 8.4 K/mm3 (4.8-10.8)
[2021-05-16 19:22] LABS: NT Pro Brain Natriuretic Pep. 1050 pg/mL (0-450)
[2021-05-16 19:27] LABS: Eosinophils % 8 % (0-3); Lymphocytes % 22 % (10-50); Monocytes % 13 % (2-9); Neutrophils % 57 % (42-76); Platelet Estimate Slight Decrease; Total Cells Counted 100
[2021-05-16 19:28] LABS: Spherocytes 2+
[2021-05-16 19:49] LABS: Iron 77 ug/dL (37-170)
[2021-05-16 19:58] LABS: Total Iron Binding Capacity 259 ug/dL (265-497)
[2021-05-16 20:25] LABS: Ferritin 129 ng/ml (11.1-264)
[2021-05-17 15:05] LABS: Chloride 112 mmol/L (98-107); Potassium 4.2 mmoL/L (3.5-5.1); Sodium 142 mmol/L (136-145)
[2021-05-17 15:08] LABS: Alanine Aminotransferase 48 U/L (12-78); Albumin Level 3.2 g/dl (3.5-5.0); Albumin/Globulin Ratio 1.1 (1.1-1.8); Alkaline Phosphatase 146 U/L (38-126); Anion Gap 13.2 mEq/L (5-15); Aspartate Amino Transferase 68 U/L (14-36); Bilirubin,Total 1.5 mg/dl (0.2-1.3); Blood Urea Nitrogen 21 mg/dl (7-17); Calcium 9.6 mg/dl (8.4-10.2); Carbon Dioxide 21 mmol/L (22.0-30.0); Estimated Glomerular Filt Rate 70 ml/min (>60); GFR (African American) 85 ML/MIN (>60); Glucose 80 mg/dl (74-100); Total Protein,Serum 6.2 g/dl (6.3-8.2)
[2021-05-18 08:25] LABS: AFP, Tumor Marker 2.6 ng/mL (0.0-8.3)
== END ==
PROVIDERS: Nurse Practitioner Family; Visit Provider Family Medicine
DX: K75.81 Nonalcoholic steatohepatitis (NASH) (principal); K74.60 Unspecified cirrhosis of liver; R18.8 Other ascites; K76.6 Portal hypertension; R06.09 Other forms of dyspnea
CPT/HCPCS: 36415; 80053; 82105; 82140; 82728; 83540; 83550; 83880; 85007; 85014; 85018; 85048; 85049; 85610

== ENCOUNTER → 2021-05-30 11:07 | Outpatient (CLI) | payer MEDICARE, SELFPAY ==
[2021-05-30 13:29] LABS: NT Pro Brain Natriuretic Pep. 1540 pg/mL (0-450)
== END ==
PROVIDERS: Visit Provider Family Medicine
DX: R79.89 Other specified abnormal findings of blood chemistry (principal); R60.0 Localized edema; R06.09 Other forms of dyspnea
CPT/HCPCS: 36415; 83880

== ENCOUNTER → 2021-06-09 07:46 | Outpatient (CLI) | payer MEDICARE, SELFPAY ==
--- NOTE | 2021-06-09 08:00 | US_ITS ---
PROCEDURE: US ABDOMEN LIMITED CLINICAL INDICATION: CIRRHOSIS,NON ALCOHOLIC STEATOHEPATITIS COMPARISON: US US ABDOMEN LIMITED from 08/27/[address] ABDOMEN PELVIS W CON from 10/10/2020 FINDINGS: PANCREAS: Unremarkable. No obvious mass or abnormal fluid collection. No ductal dilatation LIVER: The liver has a shrunken appearance with heterogeneous echogenicity consistent with cirrhosis. Portal vein is enlarged at 18 mm. There is appropriate direction of blood flow within the portal vein. There is a prominent recanalized umbilical vein with collateral flow. There is a small amount perihepatic fluid. RIGHT KIDNEY: Unremarkable. Normal size and echogenicity. No hydronephrosis GALLBLADDER: Gallbladder wall is thickened measuring up to 5 mm. No obvious gallstones pericholecystic fluid or biliary dilatation. IMPRESSION: Overall no significant change cirrhotic liver with prominent portal vein and perihepatic collateral vessels. Small amount of perihepatic fluid noted. Dictated by: Mathew Call MD 06/09/2021 13:00 Mathew Call MD in [place] 06/09/2021 13:00
== END ==
PROVIDERS: PCP Family Medicine; Visit Provider Nurse Practitioner Family
DX: K75.81 Nonalcoholic steatohepatitis (NASH) (principal); K74.60 Unspecified cirrhosis of liver
CPT/HCPCS: 76705

== ENCOUNTER → 2021-08-10 14:39 | Outpatient (CLI) | payer MEDICARE, SELFPAY | PROVIDERS: PCP Family Medicine; Visit Provider Physician Assistant | DX: Z20.822 Contact with and (suspected) exposure to COVID-19 (principal) | CPT/HCPCS: C9803; U0003; U0005 ==

== ENCOUNTER 2021-09-20 19:07 | Inpatient (IN) | payer MEDICARE, SELFPAY ==
[2021-09-20] VITALS (8 sets, daily range): BP systolic 91–121; BP diastolic 44–58; PULSE 78–104; RESP 16–20; TEMP 36.5–38.4; O2SAT 93–97; BMI 19.8; BMI 22.6
--- NOTE | 2021-09-20 19:18 | XR_ITS ---
PROCEDURE INFORMATION: Exam: XR Chest Exam date and time: 09/20/2021 7:18 PM Age: 75 years old Clinical indication: Cough; Prior surgery TECHNIQUE: Imaging protocol: XR of the chest. Views: 1 view. COMPARISON: CR XR CHEST 2V 02/08/2021 10:42 AM FINDINGS: Tubes, catheters and devices: Left subclavian pacemaker leads overlie the right atrium and right ventricle with an epicardial lead. Lungs: Patchy bilateral pulmonary infiltrate left greater than right. Pleural spaces: Unremarkable. No pleural effusion. No pneumothorax. Heart/Mediastinum: Unremarkable. No cardiomegaly. Bones/joints: Unremarkable. IMPRESSION: 1. Patchy bilateral pulmonary infiltrate left greater than right. 2. Left subclavian pacemaker leads overlie the right atrium and right ventricle with an epicardial lead.
--- NOTE | 2021-09-20 19:30 | HMH.EDFEV ---
ED Disposition Condition on Discharge: Fair - Critical Care Critical Care Time: No <BaronminhRy - Last Filed: 09/20/21 20:10> <Fernando Gutiérrez - Last Filed: 09/20/21 21:53> Clinical Impression: Viral infection, Severe sepsis with acute organ dysfunction, Elevated brain natriuretic peptide (BNP) level Fever Qualifiers: Fever type: unspecified Qualified Code(s): R50.9 - Fever, unspecified Community acquired pneumonia Qualifiers: Laterality: right Lung location: lower lobe of lung Qualified Code(s): J18.9 - Pneumonia, unspecified organism Hypothyroidism Qualifiers: Hypothyroidism type: acquired Qualified Code(s): E03.9 - Hypothyroidism, unspecified Type 2 diabetes mellitus Qualifiers: 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 The time I documented below is in addition to time spent performing reported procedures but includes the following listed in this critical care notation. Medical Decision Making - Medical Records Medical records reviewed: Yes: I reviewed the patient's medical records. - Moises Inquiry Pt receiving controlled substance: No - Radiology Data #1 Image(s): Chest Image Reviewed: Yes I reviewed the patient's radiology results, Yes I reviewed the patient's radiology image, Yes I have reviewed radiologist's interpretation - Reevaluation(s) Time: 20:11 <Ry Briseno - Last Filed: 09/20/21 20:10> - Lab Data Lab results reviewed: Yes: I reviewed the patient's lab results. Result diagrams: 09/20/21 20:37 09/20/21 20:37 - Physician Consults Physician Consulted: aaron Reason -: Admission <Fernando Gutiérrez - Last Filed: 09/20/21 21:53> Vital Signs: 09/20/21 19:09 09/20/21 20:30 Temperature 101.1 F H Temperature Source Oral Pulse Rate 102 H Pulse Rate [Left] 104 H Respiratory Rate 16 Blood Pressure 104/47 L Blood Pressure [Right Arm] 121/58 L Blood Pressure Mean [Right Arm] 79 02 Sat by Pulse Oximetry 93 L 93 L Oxygen Delivery Method Room Air Room Air - Lab Data Lab Results 09/20/21 20:20: Urine Color Yellow, Urine Appearance Cloudy, Urine pH 6.0, Ur Specific [place] 1.025, Urine Protein Negative, Urine Glucose (UA) Negative, Urine Ketones Negative, Urine Blood Negative, Urine Nitrate Negative, Urine Bilirubin Negative, Urine Urobilinogen 1.0, Ur Leukocyte Esterase 1+ A 09/20/21 20:37: WBC 16.8 H, RBC 4.23, Hgb 12.7, Hct 38.9, MCV 92.1, MCH 30.0, MCHC 32.5, RDW 16.5, Plt Count 176, MPV 8.8, Neut % (Auto) 83.2 H, Lymph % (Auto) 7.0 L, Crosby % (Auto) 3.9, Eos % (Auto) 5.4, Baso % (Auto) 0.6, Neut # (Auto) 14.0 H, Lymph # (Auto) 1.2, Crosby # (Auto) 0.7, Eos # (Auto) 0.9 H, Baso # (Auto) 0.1, Total Counted 100, Neutrophils % (Manual) 80 H, Lymphocytes % (Manual) 7 L, Monocytes % (Manual) 8, Eosinophils % (Manual) 5 H, Platelet Estimate Normal, RBC Morphology Not Reportable, Ovalocytes 1+ 09/20/21 20:37: Sodium 131 L, Potassium 3.7, Chloride 104, Carbon Dioxide 23, Anion Gap 7.7, BUN 17, Creatinine 0.80, Estimated Creat Clear 37, Estimated GFR 70, Est GFR ( Amer) 85, Glucose 306 H, Calcium 8.7, Total Bilirubin 2.9 H, AST 61 H, ALT 42, Alkaline Phosphatase 161 H, Troponin I 0.02, NT-Pro-B Natriuret Pep 4370 H, Total Protein 5.9 L, Albumin 3.1 L, Globulin 2.8, Albumin/Globulin Ratio 1.1, Lipase 107, TSH 0.99 09/20/21 20:37: Lactate 2.1 09/20/21 20:59: SARS-CoV-2 (PCR) Not detected, Influenza A Untype (PCR) Not detected, Influenza Type B (PCR) Not
[2021-09-20 20:45] LABS: Microscopic, Urine URINE MICROSCOPIC (MICROSCOPIC)
[2021-09-20 20:57] LABS: Appearance,Urine CLOUDY (Clear); Bilirubin,Urine Negative (Negative); Blood, Urine Negative (Negative); Color,Urine YELLOW (Yellow); Glucose,Urine (UA) Negative (Negative); Ketones,Urine Negative (Negative); Leukocyte Esterase,Urine 1+ (Negative); Nitrate,Urine Negative (Negative); Protein,Urine Negative (Negative); Specific Gravity, Urine 1.025 (1.005-1.030)
[2021-09-20 20:58] LABS: Basophils # 0.1 K/mm3 (0-0.2); Basophils % 0.6 % (0.1-2.0); Eosinophils # 0.9 K/mm3 (0.0-0.4); Eosinophils % 5.4 % (0.1-12.0); Hematocrit 38.9 % (37.0-47.0); Hemoglobin 12.7 g/dL (12.2-16.2); Lymphocytes # 1.2 K/mm3 (0.7-4.5); Mean Corpuscular HGB Conc 32.5 g/dL (31.8-35.4); Mean Corpuscular Volume 92.1 fl (81-99); Mean Platelet Volume 8.8 fl (7.4-10.4); Monocytes # 0.7 K/mm3 (0.1-1.0); Monocytes % 3.9 % (1.7-9.3); Neutrophils % 83.2 % (37.0-80.0); Platelet Count 176 K/mm3 (142-424); Red Blood Count 4.23 M/mm3 (4.20-5.40); Red Cell Distribution Width 16.5 % (11.5-17.5); White Blood Count 16.8 K/mm3 (4.8-10.8)
[2021-09-20 21:01] LABS: Alanine Aminotransferase 42 U/L (12-78); Albumin Level 3.1 g/dl (3.5-5.0); Albumin/Globulin Ratio 1.1 (1.1-1.8); Alkaline Phosphatase 161 U/L (38-126); Anion Gap 7.7 mEq/L (5-15); Aspartate Amino Transferase 61 U/L (14-36); Bilirubin,Total 2.9 mg/dl (0.2-1.3); Blood Urea Nitrogen 17 mg/dl (7-17); Calcium 8.7 mg/dl (8.4-10.2); Carbon Dioxide 23 mmol/L (22.0-30.0); Chloride 104 mmol/L (98-107); Creatinine Clearance Estimated 37 mL/min (50-200); Estimated Glomerular Filt Rate 70 ml/min (>60); GFR (African American) 85 ML/MIN (>60); Globulin 2.8 g/dL (1.3-3.2); Glucose 306 mg/dl (74-100); Lipase 107 U/L (23-300); MANUAL DIFFERENTIAL MANUAL DIFFERENTIAL (MANUAL DIFF); Potassium 3.7 mmoL/L (3.5-5.1); Sodium 131 mmol/L (136-145); Total Protein,Serum 5.9 g/dl (6.3-8.2)
[2021-09-20 21:02] LABS: Lactic Acid 2.1 mmol/L (0.7-2.1)
[2021-09-20 21:05] LABS: Coronavirus 19, PCR Not Detected (NotDetected); Influenza A, PCR Not Detected (NotDetected); Influenza B, PCR Not Detected (NotDetected)
[2021-09-20 21:15] LABS: NT Pro Brain Natriuretic Pep. 4370 pg/mL (0-450); Troponin I 0.02 ng/ml (0.00-0.034)
[2021-09-20 21:17] LABS: Eosinophils % 5 % (0-3); Lymphocytes % 7 % (10-50); Monocytes % 8 % (2-9); Neutrophils % 80 % (42-76); Ovalocytes 1+; Platelet Estimate Normal; Total Cells Counted 100
[2021-09-20 21:34] LABS: Thyroid Stimulating Hormone 0.99 uIU/mL (0.465-4.68)
--- NOTE | 2021-09-20 21:46 | PC.NURSE ---
Carlos Grullon at this time.
[2021-09-20 21:51] LABS: Bacteria,Urine 1+ /lpf
--- NOTE | 2021-09-20 21:53 | PC.NURSE ---
House notified of need for bed assignment at this time
[2021-09-20 22:09] LABS: Acetone, Serum (Rapid) None Detected (None Detect)
--- NOTE | 2021-09-20 22:53 | PC.NURSE ---
patient to floor via wheelchair @ this time
[2021-09-20 22:55] LABS: Troponin I 0.03 ng/ml (0.00-0.034)
[2021-09-21] VITALS (12 sets, daily range): BP systolic 98–99; BP diastolic 50–58; PULSE 72–90; RESP 16–20; TEMP 36.4–36.9; O2SAT 95–97; BMI 22.6
[2021-09-21 00:49] LABS: Reflex Lactic Add Lactic Reflex
[2021-09-21 01:47] LABS: Lactic Acid Follow Up (RFLX 1) 1.1 mmol/L (0.7-2.1)
[2021-09-21 02:00] LABS: Troponin I 0.03 ng/ml (0.00-0.034)
--- NOTE | 2021-09-21 07:45 | HMH.PHAVTE ---
[facility] Pharmacy VTE Monitoring - Patient Demographics Admission date: 09/21/21 Report Date: 09/21/21 Time: 07:45 Allergies/Adverse Reactions: Patient Allergies aspirin Allergy (Severe, Verified 03/21/21 14:59) Difficulty Breathing iodine Allergy (Severe, Verified 03/21/21 14:59) Difficulty Breathing sulfite Allergy (Severe, Verified 03/21/21 14:59) Difficulty Breathing tolmetin Allergy (Severe, Verified 03/21/21 14:59) Difficulty Breathing yellow dye Allergy (Severe, Verified 03/21/21 14:59) Difficulty Breathing cephalexin Allergy (Unknown, Verified 03/21/21 14:59) Hives, Wheezing shellfish derived Allergy (Unknown, Verified 03/21/21 14:59) Difficulty Breathing Height: 1.55 m Weight: 54.431 kg Patient Problems: Current Active Problems Fever (Acute) Type 2 diabetes mellitus (Chronic) Severe sepsis with acute organ dysfunction (Acute) Hypothyroidism (Chronic) Viral infection (Acute) Community acquired pneumonia (Acute) Elevated brain natriuretic peptide (BNP) level (Acute) - VTE Risk Labs: VTE Related Lab Results Hgb 12.7 g/dL (12.2-16.2) 09/20/21 20:37 Hct 38.9 % (37.0-47.0) 09/20/21 20:37 Plt Count 176 K/mm3 (142-424) 09/20/21 20:37 BUN 17 mg/dl (7-17) 09/20/21 20:37 Creatinine 0.80 mg/dl (0.52-1.04) 09/20/21 20:37 Estimated Creat Clear 37 mL/min (50-200) 09/20/21 20:37 VTE Risk Level: Low Risk Clinical Trial Participant: No - Prophylaxis VTE Prophylaxis Ordered?: Yes Types of VTE Prophylaxis: TEDS Knee High Location of Applied Device: Bilateral Lower Extremeties
[2021-09-21 07:54] LABS: Basophils # 0.2 K/mm3 (0-0.2); Basophils % 1.7 % (0.1-2.0); Eosinophils # 0.8 K/mm3 (0.0-0.4); Eosinophils % 8.4 % (0.1-12.0); Hemoglobin 11.9 g/dL (12.2-16.2); Lymphocytes % 11.3 % (10-50); Mean Corpuscular HGB Conc 33.1 g/dL (31.8-35.4); Mean Corpuscular Hemoglobin 30.4 pg (27.0-31.2); Mean Platelet Volume 9.1 fl (7.4-10.4); Monocytes # 0.6 K/mm3 (0.1-1.0); Monocytes % 6.3 % (1.7-9.3); Neutrophils # 6.6 K/mm3 (1.8-7.8); Neutrophils % 72.4 % (37.0-80.0); Platelet Count 108 K/mm3 (142-424); Red Blood Count 3.91 M/mm3 (4.20-5.40); Red Cell Distribution Width 16.5 % (11.5-17.5); White Blood Count 9.1 K/mm3 (4.8-10.8)
--- NOTE | 2021-09-21 07:58 | HMH.HP ---
*Admission Date: 09/21/21 <Olivia Marin - 09/21/21 08:32> *Chief complaint: Chills and cough <Olivia Marin - 09/21/21 08:32> *History of present illness: Ms. Dorman is a 75-year-old female with a history of hypertension, type 2 diabetes, asthmatic bronchitis, cardiomyopathy, ASCVD, cirrhosis with portal hypertension, permanent pacemaker and frequent UTIs who was brought to [facility] by family when found to be chilling and short of breath with a cough. Patient states her symptoms began when she awakened yesterday morning and progressively worsened. She did take some Tylenol at home for the fever/chills but these continued on with shaking. She has had a periodic nonproductive cough along with the shortness of breath. She denies chest pain. She states she felt fine the previous day. With evaluation in the emergency room white count was found to be elevated at 16,800 with a hemoglobin of 12.7 hematocrit of 38.9. Blood chemistries showed a normal renal function with a sodium of 131 and potassium of 3.7. Liver function studies with an elevated AST at 61, bilirubin at 2.9 and alkaline phosphatase at 161. Troponin I's were normal x3. BNP was elevated at 4370. Chest x-ray revealed bilateral patchy Pulmonary infiltrates with left greater than the right. On arrival to the emergency room temperature was initially 101.1 With a heart rate of 102. O2 sats were 93% on room air. She was given a liter of IV fluids and some Tylenol And then admitted . This a.m. patient states she is breathing better. She denies chest pain. She states she did sleep last night. This a.m. temperature is 98.5 with O2 sats are 96% on room air. Blood and urine cultures are pending <Olivia Marin - 09/21/21 08:32> [facility] History Medical History: Reports:: Asthma, Atherosclerotic Heart Disease, Cardiomyopathy, Congestive Heart Failure, Depression, Diabetes Mellitus Type 2, Gastroesophageal Reflux Disease(GERD), Hyperlipidemia, Hypertension, Internal Pacemaker, Lung Disease, Supraventricular Tachycardia, Urinary Tract Infection Denies:: Cancer, Diabetes Mellitus Type 1, MRSA, Palpitations, Seizures <Olivia Marin - 09/21/21 08:32> *Have you ever received a pneumonia vaccine?: No <Olivia Marin 09/21/21 08:32> *Have you received a flu vaccine this season?: No <Olivia Marin 09/21/21 08:32> Other Medical History: Reports: Anemia, Arthritis, Hoarseness, Hypothyroidism, Thyroid Disease <Olivia Marin 09/21/21 08:32> Comment:: Liver disease with portal hypertension <Olivia Marin 09/21/21 08:32> Laterality Cases: Bilateral: Arthroscopy Hip, Arthroscopy Knee, Cataract, Tonsillectomy, Total Hip Replacement <Olivia Marin 09/21/21 08:32> Other Surgeries: Yes: No Previous Surgery, Cardiac Catheterization, Colonoscopy, Pacemaker, Tubal Ligation, Other <Olivia Marin 09/21/21 08:32> Amputation: No <Olivia Marin 09/21/21 08:32> Fractures: No <Olivia Marin 09/21/21 08:32> - *Social History Smoking Status: Never smoker <Olivia Marin 09/21/21 08:32> Alcohol Intake: never <Olivia Marin 09/21/21 08:32> Substance Use Type: denies use <Olivia Marin 09/21/21 08:32> *Occupational Status:: retired, disabled <Olivia Marin 09/21/21 08:32> Housing: house <Olivia Marin 09/21/21 08:32> Household Members: none (Family lives in the adjacent housing a few feet away.) <Olivia Marin 09/21/21 08:32> *Travel in the last 8 weeks: None <Olivia Marin 09/21/21 08:32> - Psychiatric History Pschychiatric History:: Reports:: Depression <Olivia Marin 09/21/21 08:32> Family Hx:: Asthma, Cancer, Coronary Artery Disease, Heart Attack, Hypertension <Olivia Marin 09/21/21 08:32> Review of Systems - Constitutional Reports fatigue, Reports fever(s), Reports lack of energy <Olivia Marin 09/21/21 08:32> - Eyes Denies change in vision <Olivia Marin - 09/21/21 08:32> - ENT Denies ear pain, Denies headache(s), Denies nasal
--- NOTE | 2021-09-21 08:00 | CA_ITS ---
APPROVED REPORT EXAM: Comprehensive 2D, Doppler, and color-flow Echocardiogram Turn Supervisor: Yelitza Nieto CRT Ht: 5 ft 1 in Wt: 105lbs BSA: 1.44 BP: 104/47 mmHg Indications: Shortness of Breath, Diabetes, Hyperlipidemia, Hypertension/HDD, CM, CHF, GERD, PACER, SVT, UTI CIRRHOSIS EF 20-25% 03/06/14 ECHO 2D Dimensions LVOT 1.99 cm (M/F) 1.5-2.5 LA Volume 68.90 mL LA Volume Index 47.80 mL/m2 (M/F) 16- M-Mode Dimensions RVDd 3.18 cm (0.9-2.6) LA Diam 4.48 cm (1.9-4.0) LVDd 5.47 cm (3.5-5.7) Ao Diam 3.34 cm (2.0-3.7) LVDs 5.04 cm (3.5-5.7) IVSd 0.96 cm (0.6-1.1) PWd 1.18 cm (0.6-1.1) EF (Teich) 17.20% FS 7.90% EDV (Teich) 145.60 mL TAPSE 1.98 (<1.7) ESV (Teich) 120.50 mL LV Diastology E Decel Time 150.00 (160-240 msec) E/A Ratio 0.71 MED E' 4.40 (< 7 cm/sec) MED A' 6.20 cm/s E'/MED E' Ratio 20.23 (>14) LAT E' 4.90 (<10 cm/sec) LAT A' 10.10 cm/s E/LAT E' Ratio 18.16 (>14) Aortic Valve LVOT Max 150.00 (70-110 cm/s) LVOT VTI 29.01 cm AoV Peak Grayson. 205.00 (50-130 cm/s) AO Peak GR. 16.80 mmHg AO Mean GR. 9.30 (<5 mmHg) AO VTI 41.53 (18-25 cm) BHAVESH (VTI) 2.17 (2.5-4.5 cm2) Mitral Valve MV E Max Grayson. 89.00 (40-130 cm/s) MV A Velocity 125.00 (40-130 cm/s) E/A Ratio 0.71 MV Decel. Time 150.00 (160-240 ms) MV PHT 44.00 ms Pulmonary Valve PV Peak Velocity 128.00 (50-150 cm/s) Tricuspid Valve TR P. Velocity 297.00 cm/s RAP Estimate 10.00 mmHg RVSP 45.20 mmHg Left Ventricle Left atrium is moderately enlarged, left ventricle is mildly dilated, severe reduced left ventricular systolic function, visually estimated ejection fraction 25%, left ventricle is globally hypokinetic. Grade 1 diastolic dysfunction seen with tissue Doppler evidence of raise left atrial pressure. Right Ventricle Right atrium and right ventricle are normal size and contractility, there is pacemaker or ICD lead seen right ventricle. Aortic Valve Aortic valve is minimally thickened and fibrosed with mild aortic stenosis, the valve area is 1.6 cm???, there is no significant aortic insufficiency. Mitral Valve Mitral valve has mitral annular calcification, leaflets are minimally thickened, there is no mitral stenosis, there is mild mitral regurgitation. Tricuspid Valve Tricuspid grossly normal, there is mild tricuspid regurgitation, tricuspid regurgitation jet velocity is inadequate for calculation of the right ventricular systolic pressure. Pulmonic Valve Pulmonic valve is poorly visualized. Great Vessels Aortic root is normal size. Inferior vena cava is mildly dilated without significant inspiratory collapse. Pericardium No significant pericardial effusion noted. Conclusion 1. Moderately enlarged left atrium, mildly dilated left ventricle, severely reduced left ventricular systolic function, visually estimated ejection fraction 25% left ventricle is globally hypokinetic, grade 1 diastolic dysfunction seen with tissue Doppler evidence of raise left atrial pressure. 2. Thickened calcified aortic valve with mild aortic stenosis. 3. Mild mitral and tricuspid regurgitation. 4. No significant pericardial effusion noted 5. Inferior vena cava is mildly dilated without significant inspiratory collapse. Electronically signed by : Cj Liu MD 09/21/2021 12:44:28
[2021-09-21 08:05] LABS: Anion Gap 3.1 mEq/L (5-15); Blood Urea Nitrogen 19 mg/dl (7-17); Carbon Dioxide 25 mmol/L (22.0-30.0); Chloride 108 mmol/L (98-107); Creatinine Clearance Estimated 42 mL/min (50-200); Estimated Glomerular Filt Rate 82 ml/min (>60); GFR (African American) 99 ML/MIN (>60); Glucose 141 mg/dl (74-100); Magnesium 1.8 mg/dl (1.6-2.3); Potassium 3.1 mmoL/L (3.5-5.1); Sodium 133 mmol/L (136-145)
[2021-09-21 08:22] LABS: Alanine Aminotransferase 32 U/L (12-78); Albumin Level 2.4 g/dl (3.5-5.0); Alkaline Phosphatase 120 U/L (38-126); Aspartate Amino Transferase 48 U/L (14-36); Bilirubin,Direct 0.4 mg/dl (0.0-0.4); Bilirubin,Indirect 1.5 mg/dL (0.0-0.9); Bilirubin,Total 1.9 mg/dl (0.2-1.3); Bilirubin,Unconjugated 1.5 mg/dL (0.0-1.1); Total Protein,Serum 4.8 g/dl (6.3-8.2)
[2021-09-21 12:03] LABS: POC Glucose,Bedside 202 (70-110)
--- NOTE | 2021-09-21 18:42 | PC.NURSE ---
DR MCKEON MADE AWARE OF K+ LEVEL @1818. V/O FOR 60 MEQ K+ NOW. PT IS AOX4, ABLE TO MAKE NEEDS KNOWN TO STAFF, MEDICATED WITH PRN MORPHINE PER MAR WITH GOOD EFFECTIVENESS, ABSCESS TO LEFT THIGH IS RED/SWOLLEN/TENDER. SHE HAS NOT REQUIRED O2 SUPPORT. DENIES N/V/D. HAS BEEN AFEBRILE SINCE ARRIVAL.
[2021-09-22] VITALS (10 sets, daily range): BP systolic 104–130; BP diastolic 44–64; PULSE 64–90; RESP 15–20; TEMP 36.7–37.3; O2SAT 91–97; BMI 23.8
[2021-09-22 05:53] LABS: POC Glucose,Bedside 111 (70-110)
--- NOTE | 2021-09-22 08:28 | XR_ITS ---
FINAL REPORT CLINICAL HISTORY: f/u pneumonia FINDINGS: 2 views of the chest were obtained. There is mild to moderate cardiomegaly. A left-sided pacemaker is present. There are patchy bilateral airspace infiltrates consistent with acute pneumonia. This is more evident than on the previous exam. There is no pneumothorax. There is no acute osseous abnormality. IMPRESSION: Worsening bilateral pneumonia. Reviewed, Interpreted and Dictated by Cain Ellis MD Transcribed by Ginger Egan Authenticated by Cain Ellis MD on 09/22/2021 03:54:14 PM [facility]
--- NOTE | 2021-09-22 08:37 | HMH.ACPN2 ---
<Mamie Telles - Last Filed: 09/22/21 08:37> Internal Medicine - PN: Subj *Date: 09/22/21 *Time: 08:37 Interval history: Patient states she is feeling better today. She still has a cough and was able to produce a sputum sample. She denies any pain and states she slept well last night. She is eaten all of her breakfast this morning. Exam Vital signs and Labs for Last 24 Hours: Temp Pulse Resp BP Pulse Ox 98.7 F 86 15 119/64 91 L 09/22/21 04:00 09/22/21 06:23 09/22/21 04:00 09/22/21 04:00 09/22/21 06:23 Laboratory Results - last 24 hr 09/21/21 11:13: POC Glucose 202 H 09/22/21 05:40: POC Glucose 111 H I & O for Last 24 hours: Intake & Output 09/19/21 09/20/21 09/21/21 09/22/21 11:59 11:59 11:59 11:59 Intake Total 1410 / 1410 720 / 720 Balance 1410 / 1410 720 / 720 Weight 119 lb 15.962 oz 126 lb 3.2 oz Microbiology Reports for the Last 24 Hours: Microbiology 09/20/21 20:20 Urine,Clean Catch Urine Culture - Preliminary NO GROWTH AFTER 24 HOURS 09/21/21 10:20 Sputum - Expectorated Sputum Gram Stain - Final - Constitutional no acute distress - *Routine Respiratory Exam Present: rales (Bibasilar), wheezes (Faint) - *Routine Cardiovascular Exam Present: RRR - *Routine Abdominal Exam Present: soft, normoactive bowel sounds. Absent: tenderness - *Routine Extremities Exam Present: edema (Ankle edema bilaterally). Absent: cyanosis, clubbing - *Routine Skin Exam Present: warm. Absent: rash - *Routine Neurological Exam Present: alert, oriented X3 Assessment and Plan (1) Community acquired pneumonia Status: Acute Qualifiers: Laterality: right Lung location: lower lobe of lung Qualified Code(s): J18.9 - Pneumonia, unspecified organism Category: Medical Code(s): J18.9 - Pneumonia, unspecified organism (2) Elevated brain natriuretic peptide (BNP) level Status: Acute Category: Medical Code(s): R79.89 - Other specified abnormal findings of blood chemistry (3) Fever Status: Acute Qualifiers: Fever type: unspecified Qualified Code(s): R50.9 - Fever, unspecified Category: Medical Code(s): R50.9 - Fever, unspecified (4) Severe sepsis with acute organ dysfunction Status: Acute Category: Medical Code(s): A41.9 - Sepsis, unspecified organism; R65.20 - Severe sepsis without septic shock (5) Type 2 diabetes mellitus Status: Chronic 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: unspecified chcf insulin use status Diabetes mellitus complication status: with other specified complication Qualified Code(s): E11.69 - Type 2 diabetes mellitus with other specified complication Category: Medical Code(s): E11.9 - Type 2 diabetes mellitus without complications (6) Cirrhosis Status: Acute Qualifiers: Hepatic cirrhosis type: unspecified hepatic cirrhosis Ascites presence: without ascites Qualified Code(s): K74.60 - Unspecified cirrhosis of liver Category: Medical Code(s): K74.60 - Unspecified cirrhosis of liver (7) Hyperbilirubinemia Status: Acute Category: Medical Code(s): E80.6 - Other disorders of bilirubin metabolism (8) Asthma Status: Chronic Category: Medical Code(s): J45.909 - Unspecified asthma, uncomplicated (9) Dilated cardiomyopathy Status: Chronic Category: Medical Code(s): I42.0 - Dilated cardiomyopathy (10) PAULSON (nonalcoholic steatohepatitis) Status: Acute Category: Medical Code(s): K75.81 - Nonalcoholic steatohepatitis (PAULSON) - Assessment and plan all Dx Assessment and Plan for all problems:: Patient's white blood cell count has normalized. Still awaiting blood and sputum cultures. Preliminary urine culture showed no growth after 24 hours. Echo showed an EF of 25% with grade 1 diastolic dysfunction. We will keep the patient for one more day on continued antibiotics. Likely discharge tomorrow. <Nor
[2021-09-22 09:26] LABS: Basophils # 0.1 K/mm3 (0-0.2); Basophils % 1.8 % (0.1-2.0); Eosinophils # 0.6 K/mm3 (0.0-0.4); Eosinophils % 7.3 % (0.1-12.0); Hematocrit 34.8 % (37.0-47.0); Hemoglobin 11.5 g/dL (12.2-16.2); Lymphocytes # 1.1 K/mm3 (0.7-4.5); Lymphocytes % 14.3 % (10-50); Mean Corpuscular HGB Conc 32.9 g/dL (31.8-35.4); Mean Corpuscular Hemoglobin 30.8 pg (27.0-31.2); Mean Corpuscular Volume 93.4 fl (81-99); Mean Platelet Volume 10.1 fl (7.4-10.4); Monocytes # 0.6 K/mm3 (0.1-1.0); Neutrophils # 5.2 K/mm3 (1.8-7.8); Neutrophils % 68.7 % (37.0-80.0); Platelet Count 97 K/mm3 (142-424); Red Blood Count 3.72 M/mm3 (4.20-5.40); Red Cell Distribution Width 16.4 % (11.5-17.5); White Blood Count 7.6 K/mm3 (4.8-10.8)
[2021-09-22 09:36] LABS: Anion Gap 4.9 mEq/L (5-15); Blood Urea Nitrogen 17 mg/dl (7-17); Calcium 7.8 mg/dl (8.4-10.2); Carbon Dioxide 27 mmol/L (22.0-30.0); Chloride 106 mmol/L (98-107); Creatinine Clearance Estimated 44 mL/min (50-200); Estimated Glomerular Filt Rate 70 ml/min (>60); GFR (African American) 85 ML/MIN (>60); Glucose 232 mg/dl (74-100); Potassium 3.9 mmoL/L (3.5-5.1); Sodium 134 mmol/L (136-145)
--- NOTE | 2021-09-22 09:54 | SW/DCPLANNER ---
Addendum entered by Raquel Bueno 09/22/21 10:19: Patient stated that she currently has a nebulizer machine at home. I have informed Maria mkceon/ Shantelle to disregard order. Patient stated that she has everything she needs at home to return safely. Addendum entered by Raquel Bueno 09/22/21 10:03: Information/order has been faxed to [facility]. Original Note: The plan for this patient is to discharge home once medically stable. Dr Grullon has stated that patient will need a nebulizer machine once medically stable. Patient could potentially discharge home tomorrow. A nebulizer machine will be ordered.
[2021-09-23] VITALS: BP 108/55; PULSE 72; PULSE 90; RESP 15; TEMP 37.4; O2SAT 95
[2021-09-23 04:00] VITALS: BP 102/53; PULSE 67; PULSE 80; RESP 14; TEMP 36.7; O2SAT 93
--- NOTE | 2021-09-23 04:04 | PC.NURSE ---
no issues through the nite, pt slept well, VSS, pt remains on room air with o2 sats 95%, noted expiratory wheezes and crackles at bases, pt sob upon ambulation to bathroom at times. no other issues noted at this time
[2021-09-23 05:12] VITALS: BMI 23.8
--- NOTE | 2021-09-23 05:18 | ECG_ITS ---
APPROVED REPORT Exam: Resting ECG HR:79 bpm ECG Measurements Heart Rate 79 AXES GA 144 P 45 QRSd 150 QRS -21 QT 418 T 56 QTc 479 Conclusion Electronic ventricular pacemaker Electronically signed by : Bruno Hernandez MD 09/23/2021 14:25:01
--- NOTE | 2021-09-23 06:07 | PC.NURSE ---
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 elam with no new orders noted. VSS
[2021-09-23 06:42] VITALS: PULSE 79; O2SAT 93
[2021-09-23 07:15] LABS: Alanine Aminotransferase 29 U/L (12-78); Albumin Level 2.3 g/dl (3.5-5.0); Alkaline Phosphatase 122 U/L (38-126); Aspartate Amino Transferase 49 U/L (14-36); Bilirubin,Total 1.6 mg/dl (0.2-1.3); Blood Urea Nitrogen 16 mg/dl (7-17); Calcium 7.9 mg/dl (8.4-10.2); Carbon Dioxide 22 mmol/L (22.0-30.0); Chloride 112 mmol/L (98-107); Creatinine Clearance Estimated 44 mL/min (50-200); Estimated Glomerular Filt Rate 82 ml/min (>60); GFR (African American) 99 ML/MIN (>60); Globulin 2.4 g/dL (1.3-3.2); Glucose 106 mg/dl (74-100); Sodium 137 mmol/L (136-145); Total Protein,Serum 4.7 g/dl (6.3-8.2)
[2021-09-23 07:31] VITALS: BP 107/55; PULSE 79; RESP 16; TEMP 36.9; O2SAT 96
[2021-09-23 08:43] VITALS: PULSE 78
--- NOTE | 2021-09-23 08:45 | HMH.ACPN2 ---
<Mamie Telles - Last Filed: 09/23/21 08:45> Internal Medicine - PN: Subj *Date: 09/23/21 *Time: 08:45 Interval history: Patient states she is feeling better this morning. She still has a slight cough but denies any shortness of breath. She slept well and ate well. She denies any pain. Exam Vital signs and Labs for Last 24 Hours: Temp Pulse Resp BP Pulse Ox 98.4 F 78 16 107/55 L 96 09/23/21 07:31 09/23/21 08:43 09/23/21 07:31 09/23/21 07:31 09/23/21 07:31 Laboratory Results - last 24 hr 09/22/21 09:13: WBC 7.6, RBC 3.72 L, Hgb 11.5 L, Hct 34.8 L, MCV 93.4, MCH 30.8, MCHC 32.9, RDW 16.4, Plt Count 97 L, MPV 10.1, Neut % (Auto) 68.7, Lymph % (Auto) 14.3, [place] % (Auto) 8.0, Eos % (Auto) 7.3, Baso % (Auto) 1.8, Neut # (Auto) 5.2, Lymph # (Auto) 1.1, [place] # (Auto) 0.6, Eos # (Auto) 0.6 H, Baso # (Auto) 0.1 09/22/21 09:13: Sodium 134 L, Potassium 3.9 D, Chloride 106, Carbon Dioxide 27, Anion Gap 4.9 L, BUN 17, Creatinine 0.80, Estimated Creat Clear 44, Estimated GFR 70, Est GFR ( Amer) 85, Glucose 232 H, Calcium 7.8 L 09/23/21 06:04: Sodium 137, Potassium 4.0, Chloride 112 H, Carbon Dioxide 22, Anion Gap 7.0, BUN 16, Creatinine 0.70, Estimated Creat Clear 44, Estimated GFR 82, Est GFR ( Amer) 99, Glucose 106 H D, Calcium 7.9 L, Total Bilirubin 1.6 H, AST 49 H, ALT 29, Alkaline Phosphatase 122, Total Protein 4.7 L, Albumin 2.3 L, Globulin 2.4, Albumin/Globulin Ratio 1.0 L I & O for Last 24 hours: Intake & Output 09/20/21 09/21/21 09/22/21 09/23/21 11:59 11:59 11:59 11:59 Intake Total 1410 / 1410 840 / 840 600 / 600 Balance 1410 / 1410 840 / 840 600 / 600 Weight 119 lb 15.962 oz 126 lb 3.2 oz 126 lb 3.081 oz Microbiology Reports for the Last 24 Hours: Microbiology 09/20/21 20:37 Blood Blood Culture - Preliminary NO GROWTH AFTER 48 HOURS 09/20/21 20:20 Urine,Clean Catch Urine Culture - Final NO GROWTH AFTER 48 HOURS 09/20/21 20:37 Blood Blood Culture - Preliminary NO GROWTH AFTER 48 HOURS - Constitutional no acute distress - *Routine Respiratory Exam Present: rales (Bibasilar), wheezes (Faint) - *Routine Cardiovascular Exam Present: RRR - *Routine Abdominal Exam Present: soft, normoactive bowel sounds. Absent: tenderness - *Routine Extremities Exam Absent: cyanosis, clubbing, edema - *Routine Skin Exam Present: warm. Absent: rash - *Routine Neurological Exam Present: alert, oriented X3 Assessment and Plan (1) Community acquired pneumonia Status: Acute Qualifiers: Laterality: right Lung location: lower lobe of lung Qualified Code(s): J18.9 - Pneumonia, unspecified organism Category: Medical Code(s): J18.9 - Pneumonia, unspecified organism (2) Elevated brain natriuretic peptide (BNP) level Status: Acute Category: Medical Code(s): R79.89 - Other specified abnormal findings of blood chemistry (3) Severe sepsis with acute organ dysfunction Status: Acute Category: Medical Code(s): A41.9 - Sepsis, unspecified organism; R65.20 - Severe sepsis without septic shock (4) Type 2 diabetes mellitus Status: Chronic Qualifiers: 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 insulin use: unspecified middle or intermediate school principal insulin use status Diabetes mellitus complication status: with other specified complication Qualified Code(s): E11.69 - Type 2 diabetes mellitus with other specified complication Category: Medical Code(s): E11.9 - Type 2 diabetes mellitus without complications (5) Cirrhosis Status: Acute Qualifiers: Hepatic cirrhosis type: unspecified hepatic cirrhosis Ascites presence: without ascites Qualified Code(s): K74.60 - Unspecified cirrhosis of liver Category: Medical Code(s): K74.60 - Unspecified cirrhosis of liver (6) Asthma Status: Chronic Category: Medical Code(s): J45.909 - Unspecified asthma, uncomplicated (7) Dilate
[2021-09-23 10:58] VITALS: BP 96/50; PULSE 80; RESP 16; TEMP 36.9; O2SAT 92
--- NOTE | 2021-09-23 11:55 | HMH.DCSUM ---
General - General Admission date:: 09/20/21 <Blane Grullon - 10/30/21 14:57> 09/20/21 <Mamie Telles - 09/23/21 11:59> Discharge date: 09/23/21 <Mamie Telles - 09/23/21 11:59> HPI HPI: Ms. Dorman is a 75-year-old female with a history of hypertension, type 2 diabetes, asthmatic bronchitis, cardiomyopathy, ASCVD, cirrhosis with portal hypertension, permanent pacemaker and frequent UTIs who was brought to [facility] by family when found to be chilling and short of breath with a cough. Patient states her symptoms began when she awakened yesterday morning and progressively worsened. She did take some Tylenol at home for the fever/chills but these continued on with shaking. She has had a periodic nonproductive cough along with the shortness of breath. She denies chest pain. She states she felt fine the previous day. With evaluation in the emergency room white count was found to be elevated at 16,800 with a hemoglobin of 12.7 hematocrit of 38.9. Blood chemistries showed a normal renal function with a sodium of 131 and potassium of 3.7. Liver function studies with an elevated AST at 61, bilirubin at 2.9 and alkaline phosphatase at 161. Troponin I's were normal x3. BNP was elevated at 4370. Chest x-ray revealed bilateral patchy Pulmonary infiltrates with left greater than the right. On arrival to the emergency room temperature was initially 101.1 With a heart rate of 102. O2 sats were 93% on room air. She was given a liter of IV fluids and some Tylenol And then admitted . This a.m. patient states she is breathing better. She denies chest pain. She states she did sleep last night. This a.m. temperature is 98.5 with O2 sats are 96% on room air. Blood and urine cultures are pending <Mamie Telles - 09/23/21 11:59> Hospital Course Hospital Course: The patient was admitted and started on antibiotics. Duo nebs were also ordered. She had an echo showing an EF of 25% with grade 1 diastolic dysfunction. Clinically, her symptoms did improve. She had a repeat chest x-ray on 09/22/2021 showing worsening bilateral pneumonia. She continued with a cough and was able to produce a sputum sample. She denied any pain. She did not require oxygen to maintain saturations. She was eating and sleeping well. Her white blood cell count and LFTs both improved. Her blood cultures and urine culture returned showing no growth. Her final sputum culture is still pending. She was stable to be discharged home on antibiotics and will follow up with Dr. Grullon. <Mamie Telles - 09/23/21 11:59> Objective Vital signs: Temp Pulse Resp BP Pulse Ox 98.4 F 80 16 96/50 L 92 L 09/23/21 10:58 09/23/21 10:58 09/23/21 10:58 09/23/21 10:58 09/23/21 10:58 <Blane Grullon - 10/30/21 14:57> Temp Pulse Resp BP Pulse Ox 98.4 F 80 16 96/50 L 92 L 09/23/21 10:58 09/23/21 10:58 09/23/21 10:58 09/23/21 10:58 09/23/21 10:58 <Mamie Telles - 09/23/21 11:59> Narrative: - Constitutional no acute distress - *Routine Respiratory Exam Present: rales (Bibasilar), wheezes (Faint) - *Routine Cardiovascular Exam Present: RRR - *Routine Abdominal Exam Present: soft, normoactive bowel sounds. Absent: tenderness - *Routine Extremities Exam Absent: cyanosis, clubbing, edema - *Routine Skin Exam Present: warm. Absent: rash - *Routine Neurological Exam Present: alert, oriented X3 <Mamie Telles - 09/23/21 11:59> Results Labs on day of discharge: Labs from last 24 hours 09/23/21 06:04 Sodium 137 Potassium 4.0 Chloride 112 H Carbon Dioxide 22 Anion Gap 7.0 BUN 16 Creatinine 0.70 Estimated Creat Clear 44 Estimated GFR 82 Est GFR ( Amer) 99 Glucose 106 H D Calcium 7.9 L Total Bilirubin 1.6 H AST 49 H ALT 29 Alkaline Phosphatase 122 Total Protein 4.7 L Albumin 2.3 L Globulin 2.4 Albumin/Globulin Ratio 1.0 L Preliminar
== END 2021-09-23 13:11 | disposition home or self-care (01) | DRG 871 ==
LOC: ER 21:53 → 2ND 22:08
PROVIDERS: Emergency Medicine; Admitting Provider Family Medicine; Emergency Provider Emergency Medicine; PCP Family Medicine; Visit Provider Family Medicine
DX: A41.9 Sepsis, unspecified organism (principal); J18.9 Pneumonia, unspecified organism; I42.0 Dilated cardiomyopathy; K76.6 Portal hypertension; R65.20 Severe sepsis without septic shock; K75.81 Nonalcoholic steatohepatitis (NASH); N18.9 Chronic kidney disease, unspecified; E03.9 Hypothyroidism, unspecified; Z20.822 Contact with and (suspected) exposure to COVID-19; Z79.4 Long term (current) use of insulin; E78.5 Hyperlipidemia, unspecified; K74.60 Unspecified cirrhosis of liver; Z95.0 Presence of cardiac pacemaker; E11.69 Type 2 diabetes mellitus with other specified complication; I11.0 Hypertensive heart disease with heart failure; I50.9 Heart failure, unspecified; D64.9 Anemia, unspecified; J45.909 Unspecified asthma, uncomplicated
CPT/HCPCS: 36415; 71045; 71046; 80048; 80053; 80076; 80162; 81001; 82009; 82962; 83605; 83690; 83735; 83880; 84443; 84484; 85007; 85025; 87040; 87070; 87086; 87205; 93005; 93306; 94640; 96365; 96367; 96375; 99284; C9803; J0456; J0696; U0003; U0005

== ENCOUNTER 2021-09-24 18:20 | Inpatient (IN) | payer MEDICARE, SELFPAY ==
[2021-09-24] VITALS (13 sets, daily range): BP systolic 82–114; BP diastolic 46–66; PULSE 97–130; RESP 20–41; TEMP 36.9–37.7; O2SAT 68–99; BMI 25.6; BMI 24.4
--- NOTE | 2021-09-24 18:13 | ECG_ITS ---
APPROVED REPORT Exam: Resting ECG HR:129 bpm ECG Measurements Heart Rate 129 AXES MA 108 P 49 QRSd 136 QRS 208 QT 342 T 75 QTc 501 Conclusion Electronic ventricular pacemaker Electronically signed by : Bruno Hrenandez MD 09/25/2021 09:00:09
--- NOTE | 2021-09-24 18:21 | HMH.EDGENADL ---
ED Disposition Clinical Impression: Severe sepsis Respiratory failure Qualifiers: Chronicity: acute on chronic Respiratory failure complication: hypoxia and hypercapnia Qualified Code(s): J96.21 - Acute and chronic respiratory failure with hypoxia Bilateral pneumonia Qualifiers: Pneumonia type: due to unspecified organism Lung location: unspecified part of lung Qualified Code(s): J18.9 - Pneumonia, unspecified organism CHF (congestive heart failure) Qualifiers: Heart failure type: unspecified Heart failure chronicity: acute on chronic Qualified Code(s): I50.9 - Heart failure, unspecified Disposition: Admitted As Inpatient Condition on Discharge: Serious Referrals: Blane Grullon MD [Primary Care Provider] - Time of Disposition: 19:17 - Critical Care Critical Care Time: Yes Attestation: On , the high probability of a clinically significant, sudden or life threatening deterioration of the following system(s) required my full and direct attention, intervention and personal management. The time I documented below is in addition to time spent performing reported procedures but includes the following listed in this critical care notation. Vital system(s) involved:: Respiratory Failure My critical care processes included: Assessment & monitoring of V/S, Initial and Re-exams, Data Review/Interpretation, Coordinating Care, Medication Orders and management, Documentation Medical Decision Making - Medical Records Medical records reviewed: Yes: I reviewed the patient's medical records. - Moises Inquiry Pt receiving controlled substance: No Vital Signs: 09/24/21 18:20 09/24/21 18:21 09/24/21 18:27 Temperature 100 F H Temperature Source Oral Pulse Rate Pulse Rate [Left Radial] 130 H Respiratory Rate 41 H Blood Pressure Blood Pressure [Right Arm] 114/61 Blood Pressure Mean Blood Pressure Mean [Right Arm] 78 Blood Pressure Source [Right Arm] Automatic Cuff Blood Pressure Position [Right Arm] Sitting 02 Sat by Pulse Oximetry 68 L 83 L 88 L Oxygen Delivery Method Room Air Nasal Cannula Non-Rebreather Oxygen Flow Rate (LPM) 4 09/24/21 18:30 09/24/21 18:35 09/24/21 19:01 Temperature Temperature Source Pulse Rate 120 H 117 H Pulse Rate [Left Radial] Respiratory Rate 28 H 32 H Blood Pressure 114/66 90/46 L Blood Pressure [Right Arm] Blood Pressure Mean 82 60 Blood Pressure Mean [Right Arm] Blood Pressure Source [Right Arm] Blood Pressure Position [Right Arm] 02 Sat by Pulse Oximetry 95 92 L 94 L Oxygen Delivery Method Non-Rebreather Non-Rebreather Vapotherm Non-Rebreather Oxygen Flow Rate (LPM) 15 15 - Lab Data Lab Results 09/24/21 18:22: WBC 32.0 H* D, RBC 4.19 L, Hgb 12.8, Hct 38.7, MCV 92.4, MCH 30.4, MCHC 32.9, RDW 16.1, Plt Count 266 D, MPV 8.4, Neut % (Auto) 86.8 H, Lymph % (Auto) 6.7 L, [place] % (Auto) 2.4, Eos % (Auto) 3.7, Baso % (Auto) 0.6, Neut # (Auto) 27.8 H, Lymph # (Auto) 2.1, [place] # (Auto) 0.8, Eos # (Auto) 1.2 H, Baso # (Auto) 0.2, Total Counted 100, Neutrophils % (Manual) 63, Band Neutrophils % 24.0 H, Lymphocytes % (Manual) 7 L, Monocytes % (Manual) 4, Eosinophils % (Manual) 2, Platelet Estimate Normal, RBC Morphology Normal 09/24/21 18:22: Sodium 133 L, Potassium 4.6, Chloride 107, Carbon Dioxide 23, Anion Gap 7.6, BUN 15, Creatinine 0.80, Estimated Creat Clear 49, Estimated GFR 70, Est GFR ( Amer) 85, Glucose 187 H, Calcium 8.6, Total Bilirubin 4.3 H, AST 66 H D, ALT 41 D, Alkaline Phosphatase 154 H, Troponin I 0.14 H, NT-Pro-B Natriuret Pep 93134 H, Total Protein 5.7 L, Albumin 2.9 L, Globulin 2.8, Albumin/Globulin Ratio 1.0 L 09/24/21 18:22: Lactate 2.8 H 09/24/21 18:27: VBG pH 7.37, VBG pCO2 29.6 L, VBG pO2 52.2 H, VBG HCO3 16.8 L, VBG Total CO2 17.7 L, VBG O2 Saturation 87.3 H, VBG Base Excess -8.5 L Result diagrams: 09/24/21 18:22 09/24/21 18:22 Orders (Tests/Meds): ED MEDICATIONS Generic Name Dose Route Start
--- NOTE | 2021-09-24 18:27 | XR_ITS ---
PROCEDURE INFORMATION: Exam: XR Chest Exam date and time: 09/24/2021 6:27 PM Age: 75 years old Clinical indication: Shortness of breath; Prior surgery; Surgery type: Pacemaker; Additional info: Short of breath TECHNIQUE: Imaging protocol: XR of the chest. Views: 1 view. COMPARISON: CR XR CHEST 2V 09/22/2021 9:57 AM FINDINGS: Tubes, catheters and devices: AICD in place with leads in unchanged position. Lungs: Worsening consolidative patchy and confluent airspace opacities bilaterally. Pleural spaces: No definite pleural effusion. No pneumothorax. Heart/Mediastinum: Cardiomediastinal silhouette is grossly unchanged. Vasculature: Right IJ approach central venous port catheter in place with tip Bones/joints: No acute osseous abnormality. Soft tissues: Unremarkable. IMPRESSION: Worsening consolidative patchy and confluent airspace opacities bilaterally.
[2021-09-24 18:41] LABS: Basophils # 0.2 K/mm3 (0-0.2); Eosinophils # 1.2 K/mm3 (0.0-0.4); Hemoglobin 12.8 g/dL (12.2-16.2); Mean Corpuscular HGB Conc 32.9 g/dL (31.8-35.4); Monocytes # 0.8 K/mm3 (0.1-1.0); Monocytes % 2.4 % (1.7-9.3); Red Cell Distribution Width 16.1 % (11.5-17.5)
[2021-09-24 18:46] LABS: VBG Base Excess -8.5 mmol/L (-2.4-2.3); VBG HCO3 16.8 mmol/L (23-30); VBG Oxygen Saturation 87.3 % (50-70); VBG PCO2 29.6 mmol/L (35-51); VBG PH 7.37 mmol/L (7.31-7.41); VBG PO2 52.2 mmol/L (28-40); VBG Total CO2 17.7 mmol/L (23-27)
[2021-09-24 18:49] LABS: Basophils % 0.6 % (0.1-2.0); Eosinophils % 3.7 % (0.1-12.0); Hematocrit 38.7 % (37.0-47.0); Lymphocytes # 2.1 K/mm3 (0.7-4.5); Lymphocytes % 6.7 % (10-50); Mean Corpuscular Hemoglobin 30.4 pg (27.0-31.2); Mean Corpuscular Volume 92.4 fl (81-99); Mean Platelet Volume 8.4 fl (7.4-10.4); Neutrophils # 27.8 K/mm3 (1.8-7.8); Neutrophils % 86.8 % (37.0-80.0); Platelet Count 266 K/mm3 (142-424); Red Blood Count 4.19 M/mm3 (4.20-5.40)
[2021-09-24 18:51] LABS: MANUAL DIFFERENTIAL MANUAL DIFFERENTIAL (MANUAL DIFF)
[2021-09-24 18:55] LABS: Alanine Aminotransferase 41 U/L (12-78); Albumin Level 2.9 g/dl (3.5-5.0); Alkaline Phosphatase 154 U/L (38-126); Anion Gap 7.6 mEq/L (5-15); Aspartate Amino Transferase 66 U/L (14-36); Bilirubin,Total 4.3 mg/dl (0.2-1.3); Blood Urea Nitrogen 15 mg/dl (7-17); Calcium 8.6 mg/dl (8.4-10.2); Carbon Dioxide 23 mmol/L (22.0-30.0); Chloride 107 mmol/L (98-107); Creatinine Clearance Estimated 49 mL/min (50-200); Estimated Glomerular Filt Rate 70 ml/min (>60); GFR (African American) 85 ML/MIN (>60); Globulin 2.8 g/dL (1.3-3.2); Glucose 187 mg/dl (74-100); Potassium 4.6 mmoL/L (3.5-5.1); Sodium 133 mmol/L (136-145); Total Protein,Serum 5.7 g/dl (6.3-8.2)
[2021-09-24 18:58] LABS: Eosinophils % 2 % (0-3); Lymphocytes % 7 % (10-50); Monocytes % 4 % (2-9); Neutrophils % 63 % (42-76); Platelet Estimate Normal; RBC Morphology Normal; Total Cells Counted 100
[2021-09-24 19:05] LABS: Coronavirus 19, PCR Not Detected (NotDetected); Influenza A, PCR Not Detected (NotDetected); Influenza B, PCR Not Detected (NotDetected)
[2021-09-24 19:07] LABS: NT Pro Brain Natriuretic Pep. 14500 pg/mL (0-450); Troponin I 0.14 ng/ml (0.00-0.034)
[2021-09-24 19:12] LABS: Lactic Acid 2.8 mmol/L (0.7-2.1)
--- NOTE | 2021-09-24 19:22 | PC.NURSE ---
Paged [facility] for vancomycin dosing as they are unable to hear staff when we have called.
--- NOTE | 2021-09-24 19:28 | PC.NURSE ---
Per Dr. Varma, paged at 1928.
--- NOTE | 2021-09-24 19:38 | PC.NURSE ---
[facility] called back, s/w Tony and he gave loading dose and continued dose for Vancomycin IV. He placed order in [facility] for med.
[2021-09-24 19:56] LABS: Microscopic, Urine URINE MICROSCOPIC (MICROSCOPIC)
[2021-09-24 20:02] LABS: Appearance,Urine CLEAR (Clear); Bilirubin,Urine Negative (Negative); Blood, Urine Negative (Negative); Color,Urine YELLOW (Yellow); Glucose,Urine (UA) Negative (Negative); Ketones,Urine Negative (Negative); Leukocyte Esterase,Urine Negative (Negative); Nitrate,Urine Negative (Negative); PH,Urine 5.5 (5.0-8.5); Protein,Urine Negative (Negative); Urobilinogen,Urine 0.2 EU/dl (0.2)
[2021-09-24 20:05] LABS: Amorphous Sediment,Urine Trace /lpf; Renal Epithelial Cells,Urine Occasional #/lpf (0)
--- NOTE | 2021-09-24 20:55 | PC.NURSE ---
Dr. Phelan at bedside
[2021-09-24 21:21] LABS: Reflex Lactic Add Lactic Reflex
--- NOTE | 2021-09-24 21:23 | HMH.ACPN2 ---
Internal Medicine - PN: Subj *Date: 09/24/21 *Time: 21:23 Interval history: This 75-year-old white female with chronic lung disease was discharged from [facility] yesterday after being treated for pneumonia. She returns to the emergency room tonight with significant hypoxia and confusion. See the ER report. Oxygen saturation was 68% when she got to the emergency room. She required BiPAP in order to achieve respiratory stabilization. Her white count was elevated over 32,000 and her BNP was 14,500. Her chest x-ray shows bilateral patchy infiltrates worse on the left. Exam Vital signs and Labs for Last 24 Hours: Temp Pulse Resp BP Pulse Ox 99.7 F H 97 H 22 99/57 L 99 09/24/21 21:15 09/24/21 21:15 09/24/21 21:15 09/24/21 21:15 09/24/21 20:33 Laboratory Results - last 24 hr 09/24/21 18:22: WBC 32.0 H* D, RBC 4.19 L, Hgb 12.8, Hct 38.7, MCV 92.4, MCH 30.4, MCHC 32.9, RDW 16.1, Plt Count 266 D, MPV 8.4, Neut % (Auto) 86.8 H, Lymph % (Auto) 6.7 L, [place] % (Auto) 2.4, Eos % (Auto) 3.7, Baso % (Auto) 0.6, Neut # (Auto) 27.8 H, Lymph # (Auto) 2.1, [place] # (Auto) 0.8, Eos # (Auto) 1.2 H, Baso # (Auto) 0.2, Total Counted 100, Neutrophils % (Manual) 63, Band Neutrophils % 24.0 H, Lymphocytes % (Manual) 7 L, Monocytes % (Manual) 4, Eosinophils % (Manual) 2, Platelet Estimate Normal, RBC Morphology Normal 09/24/21 18:22: Sodium 133 L, Potassium 4.6, Chloride 107, Carbon Dioxide 23, Anion Gap 7.6, BUN 15, Creatinine 0.80, Estimated Creat Clear 49, Estimated GFR 70, Est GFR ( Amer) 85, Glucose 187 H, Calcium 8.6, Total Bilirubin 4.3 H, AST 66 H D, ALT 41 D, Alkaline Phosphatase 154 H, Troponin I 0.14 H, NT-Pro-B Natriuret Pep 63538 H, Total Protein 5.7 L, Albumin 2.9 L, Globulin 2.8, Albumin/Globulin Ratio 1.0 L 09/24/21 18:22: Lactate 2.8 H 09/24/21 18:22: SARS-CoV-2 (PCR) Not detected, Influenza A Untype (PCR) Not detected, Influenza Type B (PCR) Not detected 09/24/21 18:22: Procalcitonin 3.30 H 09/24/21 18:27: VBG pH 7.37, VBG pCO2 29.6 L, VBG pO2 52.2 H, VBG HCO3 16.8 L, VBG Total CO2 17.7 L, VBG O2 Saturation 87.3 H, VBG Base Excess -8.5 L 09/24/21 19:43: Urine Color Yellow, Urine Appearance Clear, Urine pH 5.5, Ur Specific [place] 1.020, Urine Protein Negative, Urine Glucose (UA) Negative, Urine Ketones Negative, Urine Blood Negative, Urine Nitrate Negative, Urine Bilirubin Negative, Urine Urobilinogen 0.2, Ur Leukocyte Esterase Negative, Urine WBC 3-5, Ur Squamous Epith Cells 3-5, Ur Renal Epithelial Cell Occasional, Amorphous Sediment Trace I & O for Last 24 hours: Intake & Output 09/22/21 09/23/21 09/24/21 09/25/21 11:59 11:59 11:59 11:59 Weight 140 lb - Constitutional mild distress (But resting fairly comfortably on BiPAP) - *Routine HEENT Exam Head: Present: normocephalic Eye: Present: EOMI, PERRL ENT: Present: mucous membranes moist - *Routine Neck Exam Present: supple, JVD (Prominent jugular venous distention). Absent: lymphadenopathy - Routine Chest/Breast/Axilla Exam Chest wall: Present: pacemaker - *Routine Respiratory Exam Present: decreased breath sounds, rales (Bibasilar rales) - *Routine Cardiovascular Exam Present: murmur (Prominent aortic murmur) - *Routine Abdominal Exam Present: soft, normoactive bowel sounds. Absent: tenderness - *Routine Extremities Exam Present: edema (Greater than 2+). Absent: cyanosis, clubbing - *Routine Skin Exam Present: warm. Absent: rash - *Routine Neurological Exam Present: alert (Awake. Is hard to communicate with her due to the BiPAP.) Assessment and Plan (1) Sepsis Status: Acute Category: Medical Code(s): A41.9 - Sepsis, unspecified organism (2) Bilateral pneumonia Status: Acute Qualifiers: Pneumonia type: due to unspecified organism Lung location: unspecified part of lung Qualified Code(s): J18.9 - Pneumonia, unspecified organism Category: Medical Code(s): J18.9 - Pneumonia, unspecified organism
--- NOTE | 2021-09-24 21:39 | PC.NURSE ---
2nd fl nurse and Will RT here to transport pt to room.
--- NOTE | 2021-09-24 21:45 | PC.NURSE ---
patient up to floor via stretcher @ this time.
[2021-09-24 21:46] LABS: Lactic Acid Follow Up (RFLX 1) 1.9 mmol/L (0.7-2.1)
[2021-09-24 22:08] LABS: Troponin I 0.52 ng/ml (0.00-0.034)
--- NOTE | 2021-09-24 22:43 | ECG_ITS ---
APPROVED REPORT Exam: Resting ECG HR:97 bpm ECG Measurements Heart Rate 97 AXES IN 148 P 55 QRSd 142 QRS -9 QT 408 T 49 QTc 518 Conclusion Electronic ventricular pacemaker Electronically signed by : Bruno Hernandez MD 09/29/2021 13:53:48
[2021-09-24 23:57] LABS: D-Dimer 3.82 ug/mL (0.0-0.5)
[2021-09-25] VITALS (26 sets, daily range): BP systolic 73–116; BP diastolic 46–72; PULSE 71–102; RESP 19–26; TEMP 36.2–36.8; O2SAT 91–100
--- NOTE | 2021-09-25 01:39 | PC.NURSE ---
[facility]tt started at 4 mcg/min, BP 83/52
--- NOTE | 2021-09-25 05:44 | PC.NURSE ---
0807 Dr. Crockett was contacted about iodine allergy and his order for CTA, Dr. Crockett stated to cancel CTA for now
--- NOTE | 2021-09-25 06:12 | HMH.ITSTN ---
Anahi spoke to nurse this is cancelled for now due to iodine contrast allergy. Ordered by Dr. Crockett and the nurse said we will cancel for now
--- NOTE | 2021-09-25 06:18 | PC.NURSE ---
pt hypotensive and moved to stepdown and started on levophed gtt, currently infusing at 6 mcg/min, remains on Bipap with O2 sats at 100%, reza draining at bedside with 600 mL out so far this shift, no complaints of pain, was anxious with bipap on, pt educated on need for Bipap and has rested well since, FSBS at 0600 192
--- NOTE | 2021-09-25 08:18 | HMH.PHACONS ---
- Pharmacy Consult Date: 09/25/21 Time: 08:18 Referring provider: DR HENLEY Reason for Consult:: VANCOMYCIN DOSING CONSULT Allergies and ADEs:: Allergies Allergy/AdvReac Type Severity Reaction Status Date / Time aspirin Allergy Severe Difficulty Verified 03/21/21 14:59 Breathing iodine Allergy Severe Difficulty Verified 03/21/21 14:59 Breathing sulfite Allergy Severe Difficulty Verified 03/21/21 14:59 Breathing tolmetin Allergy Severe Difficulty Verified 03/21/21 14:59 Breathing yellow dye Allergy Severe Difficulty Verified 03/21/21 14:59 Breathing cephalexin Allergy Unknown Hives, Verified 03/21/21 14:59 Wheezing shellfish derived Allergy Unknown Difficulty Verified 03/21/21 14:59 Breathing Home Medications:: Home Medications Medication Instructions Recorded Confirmed Type Albuterol Sulfate [Ventolin HFA 1 - 2 puffs IH Q4-6H PRN 01/28/19 09/25/21 History Inhaler] Furosemide [Lasix 40mg tablet] 40 mg PO DAILY 01/28/19 09/25/21 History Insulin Glargine,Hum.rec.anlog 10 unit SQ HS 01/28/19 09/25/21 History [Toujeo Solostar] Levothyroxine Sodium 88 mcg PO DAILY 01/28/19 09/25/21 History [Levothyroxine 88mcg (0.088mg) Tab] Linagliptin [Tradjenta 5mg tablet] 5 mg PO DAILY 01/28/19 09/25/21 History Spironolactone [Spironolactone 25 mg PO DAILY 01/28/19 09/25/21 History 25mg Tablet] Theophylline Anhydrous 200 mg PO TID 01/28/19 09/25/21 History [Theophylline] carvediloL [Carvedilol 6.25mg Tab] 6.25 mg PO BID 01/28/19 09/25/21 History digoxin 125 mcg (0.125 mg) tablet 125 mcg PO DAILY 03/27/19 09/25/21 History glimepiride 4 mg tablet 4 mg PO BID 03/27/19 09/25/21 History acetaminophen 325 mg capsule 325 mg PO QID PRN 12/16/20 09/25/21 History ibuprofen 600 mg tablet 600 mg PO Q8H PRN 12/16/20 09/25/21 History Insulin Lispro [Humalog] 6 unit SQ BID 03/18/21 09/25/21 History guaiFENesin [Mucinex 600mg tablet] 600 mg PO BID 03/18/21 09/25/21 History predniSONE [Deltasone 1mg tablet] 1 mg PO DAILY 03/18/21 09/25/21 History nitrofurantoin macrocrystaL 50 mg PO DAILY 09/21/21 09/25/21 History [Nitrofurantoin] Azithromycin [Zithromax 500mg 500 mg PO DAILY 09/25/21 09/25/21 History Tab] Cefdinir [Omnicef 300mg Capsule] 300 mg PO BID 09/25/21 09/25/21 History Ipratropium/Albuterol Sulfate 3 ml IH TID 09/25/21 09/25/21 History [Duoneb 3mL neb] Height: 1.57 m Weight: 60.146 kg Laboratory Results:: Laboratory Results - last 24 hr 09/24/21 18:22: WBC 32.0 H* D, RBC 4.19 L, Hgb 12.8, Hct 38.7, MCV 92.4, MCH 30.4, MCHC 32.9, RDW 16.1, Plt Count 266 D, MPV 8.4, Neut % (Auto) 86.8 H, Lymph % (Auto) 6.7 L, [place] % (Auto) 2.4, Eos % (Auto) 3.7, Baso % (Auto) 0.6, Neut # (Auto) 27.8 H, Lymph # (Auto) 2.1, [place] # (Auto) 0.8, Eos # (Auto) 1.2 H, Baso # (Auto) 0.2, Total Counted 100, Neutrophils % (Manual) 63, Band Neutrophils % 24.0 H, Lymphocytes % (Manual) 7 L, Monocytes % (Manual) 4, Eosinophils % (Manual) 2, Platelet Estimate Normal, RBC Morphology Normal 09/24/21 18:22: Sodium 133 L, Potassium 4.6, Chloride 107, Carbon Dioxide 23, Anion Gap 7.6, BUN 15, Creatinine 0.80, Estimated Creat Clear 49, Estimated GFR 70, Est GFR ( Amer) 85, Glucose 187 H, Calcium 8.6, Total Bilirubin 4.3 H, AST 66 H D, ALT 41 D, Alkaline Phosphatase 154 H, Troponin I 0.14 H, NT-Pro-B Natriuret Pep 43330 H, Total Protein 5.7 L, Albumin 2.9 L, Globulin 2.8, Albumin/Globulin Ratio 1.0 L 09/24/21 18:22: Lactate 2.8 H 09/24/21 18:22: SARS-CoV-2 (PCR) Not detected, Influenza A Untype (PCR) Not detected, Influenza Type B (PCR) Not detected 09/24/21 18:22: Procalcitonin 3.30 H 09/24/21 18:27: VBG pH 7.37, VBG pCO2 29.6 L, VBG pO2 52.2 H, VBG HCO3 16.8 L, VBG Total CO2 17.7 L, VBG O2 Saturation 87.3 H, VBG Base Excess -8.5 L 09/24/21 19:43: Urine Color Yellow, Urine Appearance Clear, Urine pH 5.5, Ur Specific [place] 1.020, Urine Protein Negative, Urine Glucose (UA) Negative, Urine Ketones Negativ
--- NOTE | 2021-09-25 09:20 | HMH.HP ---
*Admission Date: 09/24/21 *Chief complaint: shortness of breath *History of present illness: Ms. Dorman was hospitalized with pneumonia from 09/20/2021 through 09/23/2021 and discharged home 2 days ago on cefdinir and Zithromax with duo nebs. At the time of discharge her white blood cell count had returned to normal. She had not required oxygen during her previous admission. Yesterday she began developing progressive shortness of breath with confusion and was brought back to the emergency room. On arrival she was hypoxic with an O2 sat of 68% on room air and was hypotensive. On work-up, her white blood cell count was elevated at 32,000, chest x-ray showed persistent bilateral pneumonic infiltrates. Her BNP was elevated greater than 14,000 and bilirubin is up to 4.9. She was treated with a bolus of IV fluids for possible sepsis and started on Zosyn and vancomycin. Although her O2 sats improved with fluids and nonrebreather mask, she was working hard to breathe and therefore placed on BiPAP. She also remained hypotensive and was started on Levophed overnight. Consideration was given to a CTA to rule out PE but she has an iodine allergy. This morning her hemodynamics have stabilized although she is still on Levophed 6 mcg/min. BiPAP regiment removed about 0745 this morning and she is maintaining sats in the mid 90s on nasal cannula. She is alert and oriented but not clear about all the events of yesterday. [facility] History Medical History: Reports:: Asthma, Atherosclerotic Heart Disease, Cardiomyopathy, Congestive Heart Failure, Depression, Diabetes Mellitus Type 2, Gastroesophageal Reflux Disease(GERD), Hyperlipidemia, Hypertension, Internal Pacemaker, Lung Disease, Supraventricular Tachycardia, Urinary Tract Infection Denies:: Cancer, Diabetes Mellitus Type 1, MRSA, Palpitations, Seizures *Have you ever received a pneumonia vaccine?: Yes *Have you received a flu vaccine this season?: Yes Other Medical History: Reports: Anemia, Arthritis, Hoarseness, Hypothyroidism, Thyroid Disease Laterality Cases: Bilateral: Arthroscopy Hip, Arthroscopy Knee, Tonsillectomy, Total Hip Replacement Other Surgeries: Yes: No Previous Surgery, Cardiac Catheterization, Colonoscopy, Pacemaker, Tubal Ligation, Other Amputation: No Fractures: No - *Social History Last grade of school completed: GED Smoking Status: Never smoker Alcohol Intake: never Substance Use Type: denies use *Occupational Status:: retired, disabled Housing: house Household Members: none *Travel in the last 8 weeks: None - Psychiatric History Pschychiatric History:: Reports:: Depression Family Hx:: Asthma, Cancer, Coronary Artery Disease, Heart Attack, Hypertension Review of Systems - Constitutional Reports malaise, Denies anorexia, Denies body ache(s), Denies chills - Eyes Denies blurry vision, Denies change in vision - ENT Reports abnormal hearing, Reports dry mouth, Reports sore throat, Denies difficulty swallowing - *Cardiovascular Reports shortness of breath, Denies chest pain, Denies irregular heart rhythm, Denies leg swelling - *Respiratory Reports cough (minimal), Reports shortness of breath, Denies coughing up blood, Denies pain on inspiration, Denies pain with cough - *Gastrointestinal Denies abdominal pain, Denies loose stools, Denies nausea - *Genitourinary Reports difficulty urinating - *Musculoskeletal Reports joint pain - Integumentary/Breasts Denies change in skin color, Denies rash - *Neurologic Denies dizziness, Denies headache(s) - Psychiatric Reports confusion, Denies anxiety, Denies depression - Endocrine Denies cold intolerance, Denies rapid, pounding, or irregular heartbeat - Hematologic/Lymphatic Denies easy bruising - Allergic/Immunologic Denies itchy eyes, Denies throat swelling Meds Home Medications Medication Instructions Recorded Confirmed Type Albuterol Sulfate [Ventolin HFA 1 - 2 puffs IH Q4-6H PRN 01/28/19 09/25/21 History In
[2021-09-25 10:16] LABS: Basophils # 0.1 K/mm3 (0-0.2); Basophils % 0.4 % (0.1-2.0); Eosinophils # 0.1 K/mm3 (0.0-0.4); Eosinophils % 0.4 % (0.1-12.0); Hematocrit 36.7 % (37.0-47.0); Hemoglobin 11.8 g/dL (12.2-16.2); Lymphocytes # 1.5 K/mm3 (0.7-4.5); Lymphocytes % 4.8 % (10-50); Mean Corpuscular HGB Conc 32.3 g/dL (31.8-35.4); Mean Corpuscular Hemoglobin 30.5 pg (27.0-31.2); Mean Corpuscular Volume 94.4 fl (81-99); Mean Platelet Volume 9.4 fl (7.4-10.4); Monocytes # 0.9 K/mm3 (0.1-1.0); Monocytes % 2.8 % (1.7-9.3); Neutrophils # 28.5 K/mm3 (1.8-7.8); Neutrophils % 91.6 % (37.0-80.0); Platelet Count 228 K/mm3 (142-424); Red Blood Count 3.88 M/mm3 (4.20-5.40); Red Cell Distribution Width 16.1 % (11.5-17.5); White Blood Count 31.1 K/mm3 (4.8-10.8)
[2021-09-25 10:18] LABS: MANUAL DIFFERENTIAL MANUAL DIFFERENTIAL (MANUAL DIFF)
--- NOTE | 2021-09-25 10:37 | HMH.PHAINT ---
MEDICATION RECONCILIATION COMPLETE USING DISCHARGE LIST FROM 09/23/21.
--- NOTE | 2021-09-25 10:38 | P.CONPHA_ITS ---
[facility] Pharmacy VTE Monitoring - Patient Demographics Admission date: 09/24/21 Report Date: 09/25/21 Time: 10:38 Allergies/Adverse Reactions: Patient Allergies aspirin Allergy (Severe, Verified 03/21/21 14:59) Difficulty Breathing iodine Allergy (Severe, Verified 03/21/21 14:59) Difficulty Breathing sulfite Allergy (Severe, Verified 03/21/21 14:59) Difficulty Breathing tolmetin Allergy (Severe, Verified 03/21/21 14:59) Difficulty Breathing yellow dye Allergy (Severe, Verified 03/21/21 14:59) Difficulty Breathing cephalexin Allergy (Unknown, Verified 03/21/21 14:59) Hives, Wheezing shellfish derived Allergy (Unknown, Verified 03/21/21 14:59) Difficulty Breathing Height: 1.57 m Weight: 60.146 kg Patient Problems: Current Active Problems Type 2 diabetes mellitus (Chronic) Dilated cardiomyopathy (Chronic) Hypothyroidism (Chronic) Cirrhosis (Acute) Hyperbilirubinemia (Acute) Elevated brain natriuretic peptide (BNP) level (Acute) PAULSON (nonalcoholic steatohepatitis) (Acute) Respiratory failure (Acute) Bilateral pneumonia (Acute) CHF (congestive heart failure) (Acute) Severe sepsis (Acute) Sepsis (Acute) Cystocele, midline (Acute) - VTE Risk Labs: VTE Related Lab Results Hgb 11.8 g/dL (12.2-16.2) L 09/25/21 09:45 Hct 36.7 % (37.0-47.0) L 09/25/21 09:45 Plt Count 228 K/mm3 (142-424) 09/25/21 09:45 BUN 15 mg/dl (7-17) 09/24/21 18:22 Creatinine 0.80 mg/dl (0.52-1.04) 09/24/21 18:22 Estimated Creat Clear 49 mL/min (50-200) 09/24/21 18:22 Was VTE Risk Assessment Performed: No Clinical Trial Participant: No - Prophylaxis VTE Prophylaxis Ordered?: Yes Types of VTE Prophylaxis: TEDS Knee High, Pharmacological Location of Applied Device: Bilateral Lower Extremeties Pharmacologic Type: Enoxaparin
[2021-09-25 10:46] LABS: Lymphocytes % 10 % (10-50); Monocytes % 2 % (2-9); Neutrophils % 88 % (42-76); Total Cells Counted 100
[2021-09-25 10:47] LABS: Anisocytosis 1+; Burr Cells 1+; Platelet Estimate Normal
[2021-09-25 11:42] LABS: POC Glucose,Bedside 283 (70-110)
[2021-09-25 12:36] LABS: Chloride 109 mmol/L (98-107); Sodium 136 mmol/L (136-145)
[2021-09-25 12:37] LABS: Potassium 4.5 mmoL/L (3.5-5.1)
[2021-09-25 12:39] LABS: Alanine Aminotransferase 39 U/L (12-78); Albumin Level 2.5 g/dl (3.5-5.0); Albumin/Globulin Ratio 0.9 (1.1-1.8); Alkaline Phosphatase 126 U/L (38-126); Anion Gap 18.5 mEq/L (5-15); Aspartate Amino Transferase 81 U/L (14-36); Bilirubin,Total 3.4 mg/dl (0.2-1.3); Blood Urea Nitrogen 24 mg/dl (7-17); Carbon Dioxide 13 mmol/L (22.0-30.0); Creatinine Clearance Estimated 46 mL/min (50-200); Estimated Glomerular Filt Rate 61 ml/min (>60); GFR (African American) 74 ML/MIN (>60); Globulin 2.8 g/dL (1.3-3.2); Total Protein,Serum 5.3 g/dl (6.3-8.2)
[2021-09-25 12:40] LABS: Glucose 269 mg/dl (74-100)
[2021-09-25 15:07] LABS: POC Glucose,Bedside 375 (70-110)
--- NOTE | 2021-09-25 16:35 | PC.NURSE ---
PT IS RESTING IN BED RECEIVED TYLENOL THIS AFTERNOON FOR BACK DISCOMFORT. ALERT AND ORIENTED X4. BIPAP WAS REMOVED THIS MORNING AT 0745. O2 SATURATION HAS MAINTAINED 91-95% ON 4 L NC. PT HAS BEEN UP TO THE BSC WITH 1 ASSIST ( 3 LOOSE BOWEL MOVEMENTS THIS SHIFT). EATING AND DRINKING FAIR. PACED ON TELEMETRY. LEVOPHED DRIP AT 2 MCG/MIN. PT HAS MAINTAINED A MAP >60 T/O THE SHIFT. WILL CONTINUE TO MONITOR.
[2021-09-25 17:52] LABS: POC Glucose,Bedside 337 (70-110)
[2021-09-25 19:19] LABS: Adenovirus F 40/41, stool Not Detected (NotDetected); Astrovirus Not Detected (NotDetected); Campylobacter Not Detected (NotDetected); Cryptosporidium Not Detected (NotDetected); Cyclospora Cayetanesis Not Detected (NotDetected); Entamoeba histolytica Not Detected (NotDetected); Enteroaggregative E coli Not Detected (NotDetected); Enteropathogenic E coli Not Detected (NotDetected); Enterotoxigenic E coli Not Detected (NotDetected); Giardia lamblia Not Detected (NotDetected); Norovirus Not Detected (NotDetected); Plesimonas Shigalloides, PCR Not Detected (NotDetected); Rotavirus A Not Detected (NotDetected); Salmonella, PCR Not Detected (NotDetected); Sapovirus Not Detected (NotDetected); Shiga-like toxin E coli Not Detected (NotDetected); Shigella Enterovasive E coli Not Detected (NotDetected); Vibrio Cholerae Not Detected (NotDetected); Vibrio, PCR Not Detected (NotDetected); Yersinia Entercolitica, PCR Not Detected (NotDetected)
[2021-09-25 20:38] LABS: Clostridium Difficile A/B, PCR Detected (NotDetected)
[2021-09-26] VITALS (17 sets, daily range): BP systolic 92–129; BP diastolic 43–94; PULSE 78–120; RESP 20–39; TEMP 36.4–37.2; O2SAT 90–97; BMI 25.0
--- NOTE | 2021-09-26 04:39 | PC.NURSE ---
patient remains on 1 mcg of levo, systolic has remained 92-123, MAP has remained above 60, has been on 3l NC with O2 sats 92-97%, did become SOA when transferring to BSC, sats didn't drop below 90% with exertion, reza in place draining pushpa colored urine, 450 mL out so far this shift, has had 2 BMs this shift that were loose and brown
[2021-09-26 06:17] LABS: POC Glucose,Bedside 221 (70-110)
[2021-09-26 07:05] LABS: MANUAL DIFFERENTIAL MANUAL DIFFERENTIAL (MANUAL DIFF)
[2021-09-26 07:11] LABS: Basophils # 0.1 K/mm3 (0-0.2); Basophils % 0.3 % (0.1-2.0); Eosinophils # 0.4 K/mm3 (0.0-0.4); Eosinophils % 1.3 % (0.1-12.0); Hematocrit 36.9 % (37.0-47.0); Hemoglobin 11.9 g/dL (12.2-16.2); Lymphocytes # 1.2 K/mm3 (0.7-4.5); Lymphocytes % 4.2 % (10-50); Mean Corpuscular HGB Conc 32.2 g/dL (31.8-35.4); Mean Corpuscular Hemoglobin 29.8 pg (27.0-31.2); Mean Corpuscular Volume 92.6 fl (81-99); Mean Platelet Volume 8.8 fl (7.4-10.4); Monocytes # 0.7 K/mm3 (0.1-1.0); Monocytes % 2.7 % (1.7-9.3); Neutrophils # 25.3 K/mm3 (1.8-7.8); Neutrophils % 91.6 % (37.0-80.0); Platelet Count 210 K/mm3 (142-424); Red Blood Count 3.98 M/mm3 (4.20-5.40); White Blood Count 27.6 K/mm3 (4.8-10.8)
[2021-09-26 07:25] LABS: Anion Gap 8.2 mEq/L (5-15); Blood Urea Nitrogen 34 mg/dl (7-17); Calcium 8.2 mg/dl (8.4-10.2); Carbon Dioxide 19 mmol/L (22.0-30.0); Chloride 106 mmol/L (98-107); Creatinine Clearance Estimated 47 mL/min (50-200); Estimated Glomerular Filt Rate 54 ml/min (>60); GFR (African American) 65 ML/MIN (>60); Glucose 200 mg/dl (74-100); Potassium 4.2 mmoL/L (3.5-5.1); Sodium 129 mmol/L (136-145)
--- NOTE | 2021-09-26 07:43 | PC.NURSE ---
BP 127/67. Levo gtt turned on standby at this time.
--- NOTE | 2021-09-26 08:16 | HMH.ACPN2 ---
<Olivia Marin - Last Filed: 09/26/21 08:23> Internal Medicine - PN: Subj *Date: 09/26/21 *Time: 08:23 Interval history: Patient states she is short of breath this morning. She did sleep some last night. She denies any chest pain. She remains on O2 per nasal cannula at 3 L/min. With O2 sats at 93 to 94%. Levophed drip was discontinued this a.m. Laboratory data this a.m. show white blood cell count 27,600 with a hemoglobin of 11.9 hematocrit 36.9. Blood chemistries show sodium of 129 and potassium of 4.2. BUN is 34 creatinine is 1. Exam Vital signs and Labs for Last 24 Hours: Temp Pulse Resp BP Pulse Ox 97.5 F L 94 H 24 127/67 94 L 09/26/21 04:00 09/26/21 06:00 09/26/21 06:00 09/26/21 07:43 09/26/21 06:00 Laboratory Results - last 24 hr 09/25/21 09:45: WBC 31.1 H*, RBC 3.88 L, Hgb 11.8 L, Hct 36.7 L, MCV 94.4, MCH 30.5, MCHC 32.3, RDW 16.1, Plt Count 228, MPV 9.4, Neut % (Auto) 91.6 H, Lymph % (Auto) 4.8 L, [place] % (Auto) 2.8, Eos % (Auto) 0.4, Baso % (Auto) 0.4, Neut # (Auto) 28.5 H, Lymph # (Auto) 1.5, [place] # (Auto) 0.9, Eos # (Auto) 0.1, Baso # (Auto) 0.1, Total Counted 100, Neutrophils % (Manual) 88 H, Lymphocytes % (Manual) 10, Monocytes % (Manual) 2, Platelet Estimate Normal, Anisocytosis 1+, Chacho Cells 1+ 09/25/21 11:33: POC Glucose 283 H 09/25/21 11:39: Sodium 136, Potassium 4.5, Chloride 109 H, Carbon Dioxide 13 L, Anion Gap 18.5 H, BUN 24 H D, Creatinine 0.90, Estimated Creat Clear 46, Estimated GFR 61, Est GFR ( Amer) 74, Glucose 269 H D, Calcium 8.0 L, Total Bilirubin 3.4 H, AST 81 H, ALT 39, Alkaline Phosphatase 126, Total Protein 5.3 L, Albumin 2.5 L D, Globulin 2.8, Albumin/Globulin Ratio 0.9 L 09/25/21 15:00: POC Glucose 375 H* 09/25/21 16:55: Stl Aeromonas (PCR) Not detected, Stl C. cayetanensis PCR Not detected, Stool Rotavirus (PCR) Not detected, Stl Adenov F 40/41 PCR Not detected, Stool Astrovirus (PCR) Not detected, Stool Campylobacter PCR Not detected, Stl C.difficile Tox PCR Detected A, Stool Cryptosporidium PCR Not detected, Stl E.coli Shiga Tox PCR Not detected, Stool E coli O157 PCR Not detected, Stl Enterotoxigenic E PCR Not detected, Stool EPEC (PCR) Not detected, Stool EAEC (PCR) Not detected, Stl E. histolytica PCR Not detected, Stool Giardia Lamblia PCR Not detected, Stool Salmonella PCR Not detected, Stool Sapovirus (PCR) Not detected, Stl P. shigelloides PCR Not detected, Stl Shigella/EIEC PCR Not detected, St Y.enterocolitica PCR Not detected, Stool Vibrio (PCR) Not detected, Stl Vibrio cholerae PCR Not detected, Stl Norovirus GI/GII PCR Not detected 09/25/21 17:45: POC Glucose 337 H* 09/26/21 05:45: POC Glucose 221 H 09/26/21 06:53: WBC 27.6 H*, RBC 3.98 L, Hgb 11.9 L, Hct 36.9 L, MCV 92.6, MCH 29.8, MCHC 32.2, RDW 16.0, Plt Count 210, MPV 8.8, Neut % (Auto) 91.6 H, Lymph % (Auto) 4.2 L, [place] % (Auto) 2.7, Eos % (Auto) 1.3, Baso % (Auto) 0.3, Neut # (Auto) 25.3 H, Lymph # (Auto) 1.2, [place] # (Auto) 0.7, Eos # (Auto) 0.4, Baso # (Auto) 0.1 09/26/21 06:53: Sodium 129 L, Potassium 4.2, Chloride 106, Carbon Dioxide 19 L, Anion Gap 8.2, BUN 34 H D, Creatinine 1.00, Estimated Creat Clear 47, Estimated GFR 54 L, Est GFR ( Amer) 65, Glucose 200 H D, Calcium 8.2 L I & O for Last 24 hours: Intake & Output 09/23/21 09/24/21 09/25/21 09/26/21 11:59 11:59 11:59 11:59 Intake Total 338 / 338 963 / 963 Output Total 775 / 775 950 / 950 Balance -437 / -437 Weight 132 lb 9.6 oz 136 lb 4.8 oz - Constitutional mild distress - *Routine HEENT Exam ENT: Present: mucous membranes moist, oropharynx clear - *Routine Respiratory Exam Present: wheezes, crackles (Bilateral throughout with scattered wheezing) - *Routine Cardiovascular Exam Present: RRR (Monitor showing mostly paced rhythm in the 90s. Has frequent PVCs.) - *Routine Abdominal Exam Present: soft, normoactive bowel sounds. Absent: tenderness - *Routine Extremities Exam Absent: edema, calf tenderness - *Rou
--- NOTE | 2021-09-26 08:21 | XR_ITS ---
FINAL REPORT CLINICAL HISTORY: follow up pneumonia, soa, cough COMPARISON: September 24, 2021 FINDINGS: SINGLE VIEW CHEST. The heart is normal in size. The mediastinum is unremarkable. There are bilateral pulmonary opacities consistent with pneumonia with partial improvement in aeration since the prior exam. There is no pneumothorax. IMPRESSION: Bilateral pneumonia with partial improvement in aeration. Reviewed, Interpreted and Dictated by Jan Waller III, MD Transcribed by Yashira Mcarthur Authenticated by Jan Waller III, MD on 09/26/2021 09:20:58 AM [facility]
[2021-09-26 08:22] LABS: Anisocytosis 1+; Eosinophils % 1 % (0-3); Lymphocytes % 5 % (10-50); Monocytes % 7 % (2-9); Neutrophils % 86 % (42-76); Platelet Estimate Normal; Total Cells Counted 100
--- NOTE | 2021-09-26 08:39 | HMH.CNCARD ---
History of Present Illness Consult date: 09/26/21 Requesting physician: Cale Phelan Consult reason: shortness of breath Chief complaint: SOA, Resp Distress, Hypotension, Sepsis Additional Medical History:: 1. Cardiomyopathy A. BiV AICD B. EF 25% by echo, 09/2021 C. CHF, 09/2021 2. Mild Aortic stenosis by echo, 09/2021 3. DM, type 2, treated for about 12 yrs 4. Bilateral pneumonia History of present illness: Ms. Dorman was hospitalized with pneumonia from 09/20/2021 through 09/23/2021 and discharged home 2 days ago on cefdinir and Zithromax with duo nebs. At the time of discharge her white blood cell count had returned to normal. She had not required oxygen during her previous admission. Yesterday she began developing progressive shortness of breath with confusion and was brought back to the emergency room. On arrival she was hypoxic with an O2 sat of 68% on room air and was hypotensive. On work-up, her white blood cell count was elevated at 32,000, chest x-ray showed persistent bilateral pneumonic infiltrates. Her BNP was elevated greater than 14,000 and bilirubin is up to 4.9. She was treated with a bolus of IV fluids for possible sepsis and started on Zosyn and vancomycin. Although her O2 sats improved with fluids and nonrebreather mask, she was working hard to breathe and therefore placed on BiPAP. She also remained hypotensive and was started on Levophed overnight. Consideration was given to a CTA to rule out PE but she has an iodine allergy. This morning her hemodynamics have stabilized although she is still on Levophed 6 mcg/min. BiPAP regiment removed about 0745 this morning and she is maintaining sats in the mid 90s on nasal cannula. She is alert and oriented but not clear about all the events of yesterday. The above per Dr. Grullon. Pt was admitted on 09/24/2021 with Cardiology consulted on 09/25/2021 for help with hypotension in light of cardiac history. Pt is feeling better but is still requiring oxygen by nasal cannula. She denies any chest pain and denies any prior ID despite having severe cardiomyopathy and BiV AICD. She follows with Dr. Flaherty in [place], [place] and was seen 3 months ago by him. Mild elevated troponin this admission likely due to cardiac strain from pulmonary issues. [facility] History Medical History: Reports:: Asthma, Atherosclerotic Heart Disease, Cardiomyopathy, Congestive Heart Failure, Depression, Diabetes Mellitus Type 2, Gastroesophageal Reflux Disease(GERD), Hyperlipidemia, Hypertension, Internal Pacemaker, Lung Disease, Supraventricular Tachycardia, Urinary Tract Infection Denies:: Cancer, Diabetes Mellitus Type 1, MRSA, Palpitations, Seizures *Have you ever received a pneumonia vaccine?: Yes *Have you received a flu vaccine this season?: Yes Other Medical History: Reports: Anemia, Arthritis, Hoarseness, Hypothyroidism, Thyroid Disease Laterality Cases: Bilateral: Arthroscopy Hip, Arthroscopy Knee, Tonsillectomy, Total Hip Replacement Other Surgeries: Yes: No Previous Surgery, Cardiac Catheterization, Colonoscopy, Pacemaker, Tubal Ligation, Other Amputation: No Fractures: No - *Social History Last grade of school completed: GED Smoking Status: Never smoker Alcohol Intake: never Substance Use Type: denies use *Occupational Status:: retired, disabled Housing: house Household Members: none *Travel in the last 8 weeks: None - Psychiatric History Pschychiatric History:: Reports:: Depression Family Hx:: Asthma, Cancer, Coronary Artery Disease, Heart Attack, Hypertension Meds Home Medications Medication Instructions Recorded Confirmed Type Albuterol Sulfate [Ventolin HFA 1 - 2 puffs IH Q4-6H PRN 01/28/19 09/25/21 History Inhaler] Furosemide [Lasix 40mg tablet] 40 mg PO DAILY 01/28/19 09/25/21 History Insulin Glargine,Hum.rec.anlog 10 unit SQ HS 01/28/19 09/25/21 History [Nya Healy] Levothyroxine Sodium 88 mcg PO DAILY 01/28/19 09/25/21 History [Levothyroxine 88mcg (0.0
--- NOTE | 2021-09-26 09:06 | HMH.PHACONS ---
- Pharmacy Consult Date: 09/26/21 Time: 09:06 Referring provider: DR JOHN Reason for Consult:: VANCOMYCIN DOSING ADJUSTMENT Allergies and ADEs:: Allergies Allergy/AdvReac Type Severity Reaction Status Date / Time aspirin Allergy Severe Difficulty Verified 03/21/21 14:59 Breathing iodine Allergy Severe Difficulty Verified 03/21/21 14:59 Breathing sulfite Allergy Severe Difficulty Verified 03/21/21 14:59 Breathing tolmetin Allergy Severe Difficulty Verified 03/21/21 14:59 Breathing yellow dye Allergy Severe Difficulty Verified 03/21/21 14:59 Breathing cephalexin Allergy Unknown Hives, Verified 03/21/21 14:59 Wheezing shellfish derived Allergy Unknown Difficulty Verified 03/21/21 14:59 Breathing Home Medications:: Home Medications Medication Instructions Recorded Confirmed Type Albuterol Sulfate [Ventolin HFA 1 - 2 puffs IH Q4-6H PRN 01/28/19 09/25/21 History Inhaler] Furosemide [Lasix 40mg tablet] 40 mg PO DAILY 01/28/19 09/25/21 History Insulin Glargine,Hum.rec.anlog 10 unit SQ HS 01/28/19 09/25/21 History [Toujeo Solostar] Levothyroxine Sodium 88 mcg PO DAILY 01/28/19 09/25/21 History [Levothyroxine 88mcg (0.088mg) Tab] Linagliptin [Tradjenta 5mg tablet] 5 mg PO DAILY 01/28/19 09/25/21 History Spironolactone [Spironolactone 25 mg PO DAILY 01/28/19 09/25/21 History 25mg Tablet] Theophylline Anhydrous 200 mg PO TID 01/28/19 09/25/21 History [Theophylline] carvediloL [Carvedilol 6.25mg Tab] 6.25 mg PO BID 01/28/19 09/25/21 History digoxin 125 mcg (0.125 mg) tablet 125 mcg PO DAILY 03/27/19 09/25/21 History glimepiride 4 mg tablet 4 mg PO BID 03/27/19 09/25/21 History acetaminophen 325 mg capsule 325 mg PO QIDP PRN 12/16/20 09/25/21 History ibuprofen 600 mg tablet 600 mg PO Q8HP PRN 12/16/20 09/25/21 History Insulin Lispro [Humalog] 6 unit SQ BID 03/18/21 09/25/21 History guaiFENesin [Mucinex 600mg tablet] 600 mg PO BID 03/18/21 09/25/21 History predniSONE [Deltasone 1mg tablet] 1 mg PO DAILY 03/18/21 09/25/21 History nitrofurantoin macrocrystaL 50 mg PO DAILY 09/21/21 09/25/21 History [Nitrofurantoin] Cefdinir [Omnicef 300mg Capsule] 300 mg PO BID 09/25/21 09/25/21 History Ipratropium/Albuterol Sulfate 3 ml IH TID 09/25/21 09/25/21 History [Duoneb 3mL neb] Height: 1.57 m Weight: 61.825 kg Laboratory Results:: Laboratory Results - last 24 hr 09/25/21 09:45: WBC 31.1 H*, RBC 3.88 L, Hgb 11.8 L, Hct 36.7 L, MCV 94.4, MCH 30.5, MCHC 32.3, RDW 16.1, Plt Count 228, MPV 9.4, Neut % (Auto) 91.6 H, Lymph % (Auto) 4.8 L, [place] % (Auto) 2.8, Eos % (Auto) 0.4, Baso % (Auto) 0.4, Neut # (Auto) 28.5 H, Lymph # (Auto) 1.5, [place] # (Auto) 0.9, Eos # (Auto) 0.1, Baso # (Auto) 0.1, Total Counted 100, Neutrophils % (Manual) 88 H, Lymphocytes % (Manual) 10, Monocytes % (Manual) 2, Platelet Estimate Normal, Anisocytosis 1+, [place]acho Cells 1+ 09/25/21 11:33: POC Glucose 283 H 09/25/21 11:39: Sodium 136, Potassium 4.5, Chloride 109 H, Carbon Dioxide 13 L, Anion Gap 18.5 H, BUN 24 H D, Creatinine 0.90, Estimated Creat Clear 46, Estimated GFR 61, Est GFR ( Amer) 74, Glucose 269 H D, Calcium 8.0 L, Total Bilirubin 3.4 H, AST 81 H, ALT 39, Alkaline Phosphatase 126, Total Protein 5.3 L, Albumin 2.5 L D, Globulin 2.8, Albumin/Globulin Ratio 0.9 L 09/25/21 15:00: POC Glucose 375 H* 09/25/21 16:55: Stl Aeromonas (PCR) Not detected, Stl C. cayetanensis PCR Not detected, Stool Rotavirus (PCR) Not detected, Stl Adenov F 40/41 PCR Not detected, Stool Astrovirus (PCR) Not detected, Stool Campylobacter PCR Not detected, Stl C.difficile Tox PCR Detected A, Stool Cryptosporidium PCR Not detected, Stl E.coli Shiga Tox PCR Not detected, Stool E coli O157 PCR Not detected, Stl Enterotoxigenic E PCR Not detected, Stool EPEC (PCR) Not detected, Stool EAEC (PCR) Not detected, Stl E. histolytica PCR Not detected, Stool Giardia Lamblia PCR Not detected, Stool Salmonella PCR Not detected, Stool Sapovirus
--- NOTE | 2021-09-26 10:51 | ECG_ITS ---
APPROVED REPORT Exam: Resting ECG HR:107 bpm ECG Measurements Heart Rate 107 AXES MD 116 P 65 QRSd 140 QRS -79 QT 410 T 90 QTc 547 Conclusion Electronic ventricular pacemaker Electronically signed by : Bruno Hernandez MD 09/29/2021 13:49:47
--- NOTE | 2021-09-26 14:11 | ECG_ITS ---
APPROVED REPORT Exam: Resting ECG HR:138 bpm ECG Measurements Heart Rate 138 AXES MA 128 P 62 QRSd 168 QRS 96 QT 324 T -32 QTc 490 Conclusion Sinus tachycardia with occasional premature ventricular complexes and fusion complexes Possible Left atrial enlargement Rightward axis Left bundle branch block Abnormal ECG Electronically signed by : Bruno Hernandez MD 09/29/2021 13:49:38
--- NOTE | 2021-09-26 14:45 | PC.NURSE ---
Pt's son up to the floor, updated on POC. Son will go home to get paperwork for pts pacemaker for brand and type to give to cardiology.
[2021-09-26 15:48] LABS: ABG Base Excess -14.5 mmol/L (-2.4-2.3); ABG HCO3 12.5 mmhg (22.0-26.0); ABG PCO2 28.2 mmhg (35.0-45.0); ABG PH 7.27 mmol/L (7.35-7.45); ABG PO2 68.4 mmhg (80-100); ABG TCO2 13.4 mmhg (23-27)
[2021-09-26 15:54] LABS: Allen's Test Acceptable; Oxygen 90 %; Pressure Support 6; Source Right Brachial; Vent Rate 20
[2021-09-26 17:21] LABS: POC Glucose,Bedside 222 (70-110)
[2021-09-26 17:21] LABS: POC Glucose,Bedside 187 (70-110)
--- NOTE | 2021-09-26 17:55 | PC.NURSE ---
1405- This nurse enters room d/t pt o2 sats dropping to 70% and HR in the 120-130's. Pt wont answer to name, follow commands or respond to sternal rub. Pt is guppy breathing . Pt does have a very soft pulse and JVD noted. Pt is cyantoic in the face and mottled at all extremities. 1408- Rapid Response Red called 1409- FSBS 187 1411- pt o2 sats in 60-70%; NRB placed EKG taken, reads: sinus tachy w/ occasional PVC and fusion complexes. possible left atrial enlargement. rightward axis. left BBB. abnormal ECG. 1412-MD Briseno at bedside, pt still unresponsive, MD plans to intubate 1413- S Nae, RN calls son and updates on pt's status and plan to intubate 1415- Pt begins to respond and move around in bed. MD Grullon at bedside and both agree to place pt on Bipap and not intubate at this time. BEATRIZ Nielson at bedside as well. 1416- S Nae, RN updates son again of POC and that MD team plans on NOT intubating at this time 1425- BEATRIZ Nielson VO of esmolol gtt 1445- esmolol bolus given (1.5mL). 1446- Esmolol gtt started @ 50mcg/kg/min for four minutes- HR maintaining between 120-134. Cale HENDERSON at bedside interrogating pt's pacemaker, gave VO to increase gtt to 100mcg/kg/min and to keep it at that rate as long as pt does not become hypotensive 1520-MD Grullon paged regarding pt's agitation and trying to pull BiPap off and is pulling at IV's 1525- MD Grullon TO of 1mg Haldol IV q6h PRN and get an ABG at 1530 1535- RT at bedside to retrieve ABG 1553- RT called w/ ABG results 1615- MD Grullon notified of ABG results 1750- MD Grullon at bedside. Pt continues to be agitated, additional x1 dose of 1mg IV Haldol per MD. Order received and carried out.
[2021-09-26 20:39] LABS: Troponin I 0.15 ng/ml (0.00-0.034)
[2021-09-27] VITALS (21 sets, daily range): BP systolic 80–142; BP diastolic 42–73; PULSE 90–118; RESP 20–43; TEMP 36.6–36.9; O2SAT 90–100; BMI 25.1
--- NOTE | 2021-09-27 04:37 | PC.NURSE ---
Pt has slept at intervals this shift. Has been confused at times and has had to be redirected after trying to climb oob. Pt has remained on Bipap t/o shift. Has tolerated well. Pt has had a few drops in O2 sats with exertion but recovered well. Lungs noted to have coarse crackles. Pt remains on esmolol gtt. VSS. New IVs placed in LFA and (R) hand. Safety measures in place. No other concerns.
--- NOTE | 2021-09-27 06:53 | PC.NURSE ---
Allyssa consulted over pt's decrease in BP and consciousness. New orders received. Stop esmolol gtt. Obtain ABG. RT notified.
[2021-09-27 07:06] LABS: MANUAL DIFFERENTIAL MANUAL DIFFERENTIAL (MANUAL DIFF)
[2021-09-27 07:13] LABS: ABG Base Excess -11.7 mmol/L (-2.4-2.3); ABG HCO3 16.2 mmhg (22.0-26.0); ABG Oxygen Saturation 89 % (90-100); ABG PCO2 41.7 mmhg (35.0-45.0); ABG PH 7.21 mmol/L (7.35-7.45); ABG PO2 65.9 mmhg (80-100); ABG TCO2 17.5 mmhg (23-27)
[2021-09-27 07:16] LABS: Oxygen 90 %
[2021-09-27 07:17] LABS: Allen's Test Patient Unable; Pressure Support 6; Source Right Brachial; Vent Rate 20
[2021-09-27 07:19] LABS: Basophils # 0.1 K/mm3 (0-0.2); Basophils % 0.3 % (0.1-2.0); Eosinophils # 0.3 K/mm3 (0.0-0.4); Eosinophils % 0.7 % (0.1-12.0); Hematocrit 37.1 % (37.0-47.0); Lymphocytes # 1.3 K/mm3 (0.7-4.5); Lymphocytes % 3.5 % (10-50); Mean Corpuscular HGB Conc 32.3 g/dL (31.8-35.4); Mean Corpuscular Hemoglobin 30.2 pg (27.0-31.2); Mean Corpuscular Volume 93.3 fl (81-99); Mean Platelet Volume 8.4 fl (7.4-10.4); Monocytes % 2.7 % (1.7-9.3); Neutrophils # 33.9 K/mm3 (1.8-7.8); Neutrophils % 92.9 % (37.0-80.0); Platelet Count 252 K/mm3 (142-424); Red Blood Count 3.98 M/mm3 (4.20-5.40); Red Cell Distribution Width 16.4 % (11.5-17.5); White Blood Count 36.5 K/mm3 (4.8-10.8)
[2021-09-27 07:52] LABS: Anion Gap 14.5 mEq/L (5-15); Blood Urea Nitrogen 42 mg/dl (7-17); Carbon Dioxide 16 mmol/L (22.0-30.0); Chloride 109 mmol/L (98-107); Creatinine Clearance Estimated 30 mL/min (50-200); Estimated Glomerular Filt Rate 31 ml/min (>60); Potassium 4.5 mmoL/L (3.5-5.1); Sodium 135 mmol/L (136-145)
[2021-09-27 07:53] LABS: GFR (African American) 38 ML/MIN (>60); Glucose 115 mg/dl (74-100)
--- NOTE | 2021-09-27 07:55 | HMH.PNCARD ---
Subjective Date: 09/27/21 Time: 07:55 Principal diagnosis: Pneumonia, Cardiomyopathy, AICD Interval history: 75 yo WF in bed continues on BiPAP. Currently resting. Esmolol gtt was stopped recently due to hypotension. Currently HR about 110 bpm and paced. Exam Vital signs and Labs for Last 24 Hours: Temp Pulse Resp BP Pulse Ox 97.8 F 93 H 34 H 122/69 93 L 09/27/21 02:00 09/27/21 05:45 09/27/21 02:00 09/27/21 02:00 09/27/21 05:45 Laboratory Results - last 24 hr 09/26/21 06:53: Total Counted 100, Neutrophils % (Manual) 86 H, Band Neutrophils % 1.0, Lymphocytes % (Manual) 5 L, Monocytes % (Manual) 7, Eosinophils % (Manual) 1, Platelet Estimate Normal, Anisocytosis 1+ 09/26/21 06:53: Troponin I 0.15 H 09/26/21 14:09: POC Glucose 187 H 09/26/21 15:30: Specimen Source Right brachial, O2 % 90, ABG pH 7.27 L, ABG pCO2 28.2 L, ABG pO2 68.4 L, ABG HCO3 12.5 L, ABG Total CO2 13.4 L, ABG Base Excess -14.5 L, Mathew Test Acceptable, Vent Rate 20 09/26/21 17:06: POC Glucose 222 H 09/27/21 06:50: WBC 36.5 H* D, RBC 3.98 L, Hgb 12.0 L, Hct 37.1, MCV 93.3, MCH 30.2, MCHC 32.3, RDW 16.4, Plt Count 252, MPV 8.4, Neut % (Auto) 92.9 H, Lymph % (Auto) 3.5 L, [place] % (Auto) 2.7, Eos % (Auto) 0.7, Baso % (Auto) 0.3, Neut # (Auto) 33.9 H, Lymph # (Auto) 1.3, [place] # (Auto) 1.0, Eos # (Auto) 0.3, Baso # (Auto) 0.1 09/27/21 06:51: Specimen Source Right brachial, O2 % 90, ABG pH 7.21 L*, ABG pCO2 41.7, ABG pO2 65.9 L, ABG HCO3 16.2 L, ABG Total CO2 17.5 L, ABG O2 Saturation 89 L, ABG Base Excess -11.7 L, Mathew Test Patient unable, Vent Rate 20 I & O for Last 24 hours: Intake & Output 09/24/21 09/25/21 09/26/21 09/27/21 11:59 11:59 11:59 11:59 Intake Total 338 / 338 963 / 963 590 / 590 Output Total 775 / 775 950 / 950 1000 / 1000 Balance -437 / -437 13 / 13 -410 / -410 Weight 132 lb 9.6 oz 136 lb 4.8 oz 136 lb 3.931 oz Microbiology Reports for the Last 24 Hours: Microbiology 09/24/21 18:22 Blood Blood Culture - Preliminary NO GROWTH AFTER 48 HOURS 09/24/21 18:22 Blood Blood Culture - Preliminary NO GROWTH AFTER 48 HOURS 09/25/21 11:50 Sputum - Expectorated Sputum Gram Stain - Final - *Routine Respiratory Exam Present: rhonchi, wheezes - *Routine Cardiovascular Exam Present: RRR, tachycardia - *Routine Extremities Exam Absent: cyanosis, clubbing, edema Progress Note: A&P (1) Sepsis Status: Acute (2) Bilateral pneumonia Status: Acute (3) CHF (congestive heart failure) Status: Acute (4) Respiratory failure Status: Acute (5) Elevated brain natriuretic peptide (BNP) level Status: Acute (6) Cirrhosis Status: Acute (7) Cystocele, midline Status: Acute (8) Hyperbilirubinemia Status: Acute (9) PAULSON (nonalcoholic steatohepatitis) Status: Acute (10) Dilated cardiomyopathy Status: Chronic (11) Hypothyroidism Status: Chronic (12) Type 2 diabetes mellitus Status: Chronic (13) C. difficile colitis Status: Acute Assessment and Plan for All Diagnoses:: 1. Sepsis, bilateral pneumonia, respiratory distress now on BiPAP. On Vancomycin and piperacillin/tazobactam. WBC elevated to 36K this AM. 2. Sinus tach related to #1, esmolol gtt stopped due to hypotension. Will give 1 liter of IVF for BP support. 3. Cardiomyopathy with EF 25% with BiV AICD. Cardiac meds on hold due to hypotension. 4. C. diff colitis, on metronidazole. 5. PAULSON 6. DM, type 2, on insulin 7. Hypothyroidism, on replacement. Poor prognosis.
[2021-09-27 08:09] LABS: Lymphocytes % 4 % (10-50); Neutrophils % 92 % (42-76); Platelet Estimate Normal; Total Cells Counted 100
[2021-09-27 08:12] LABS: Anisocytosis 1+
--- NOTE | 2021-09-27 08:25 | HMH.ACPN2 ---
<Olivia Marin - Last Filed: 09/27/21 08:25> Internal Medicine - PN: Subj *Date: 09/27/21 *Time: 08:25 Interval history: Patient remained stable throughout the night until this AM. Blood pressure did drop and esmolol drip was discontinued. According to MAR she required no further Haldol during the night. She remains on BiPAP with her respiratory rate currently at 36. O2 sats are in the high 80s and low 90s.With a rate of 20 FiO2 of 90% CT of the neck showed the following With her dad at this morning: CBC with a white blood cell count of 36,500 with a hemoglobin of 12 hematocrit of 37.1. Blood chemistries sodium has improved to 135 with a potassium of 4.5 and chloride of 109. BUN is 42 and creatinine is 1.6. ABG show pH of 7.21 PCO2 of 41.7 PO2 of 65.9 and a bicarb of 16.2. O2 sats 89%. Cardiology to see patient this morning with the following documentation: Assessment and Plan for All Diagnoses:: 1. Sepsis, bilateral pneumonia, respiratory distress now on BiPAP. On Vancomycin and piperacillin/tazobactam. WBC elevated to 36K this AM. 2. Sinus tach related to #1, esmolol gtt stopped due to hypotension. Will give 1 liter of IVF for BP support. 3. Cardiomyopathy with EF 25% with BiV AICD. Cardiac meds on hold due to hypotension. 4. C. diff colitis, on metronidazole. 5. PAULSON 6. DM, type 2, on insulin 7. Hypothyroidism, on replacement. Poor prognosis. Exam Vital signs and Labs for Last 24 Hours: Temp Pulse Resp BP Pulse Ox 98.4 F 116 H 30 H 126/54 L 100 09/27/21 08:00 09/27/21 08:00 09/27/21 08:00 09/27/21 08:00 09/27/21 08:00 Laboratory Results - last 24 hr 09/26/21 06:53: Troponin I 0.15 H 09/26/21 14:09: POC Glucose 187 H 09/26/21 15:30: Specimen Source Right brachial, O2 % 90, ABG pH 7.27 L, ABG pCO2 28.2 L, ABG pO2 68.4 L, ABG HCO3 12.5 L, ABG Total CO2 13.4 L, ABG Base Excess -14.5 L, Mathew Test Acceptable, Vent Rate 20 09/26/21 17:06: POC Glucose 222 H 09/27/21 05:59: Sodium 135 L, Potassium 4.5, Chloride 109 H, Carbon Dioxide 16 L, Anion Gap 14.5, BUN 42 H, Creatinine 1.60 H D, Estimated Creat Clear 30, Estimated GFR 31 L, Est GFR ( Amer) 38 L D, Glucose 115 H D, Calcium 8.0 L 09/27/21 06:50: WBC 36.5 H* D, RBC 3.98 L, Hgb 12.0 L, Hct 37.1, MCV 93.3, MCH 30.2, MCHC 32.3, RDW 16.4, Plt Count 252, MPV 8.4, Neut % (Auto) 92.9 H, Lymph % (Auto) 3.5 L, [place] % (Auto) 2.7, Eos % (Auto) 0.7, Baso % (Auto) 0.3, Neut # (Auto) 33.9 H, Lymph # (Auto) 1.3, [place] # (Auto) 1.0, Eos # (Auto) 0.3, Baso # (Auto) 0.1, Total Counted 100, Neutrophils % (Manual) 92 H, Band Neutrophils % 4.0, Lymphocytes % (Manual) 4 L, Platelet Estimate Normal, Anisocytosis 1+ 09/27/21 06:51: Specimen Source Right brachial, O2 % 90, ABG pH 7.21 L*, ABG pCO2 41.7, ABG pO2 65.9 L, ABG HCO3 16.2 L, ABG Total CO2 17.5 L, ABG O2 Saturation 89 L, ABG Base Excess -11.7 L, Mathew Test Patient unable, Vent Rate 20 I & O for Last 24 hours: Intake & Output 09/24/21 09/25/21 09/26/21 09/27/21 11:59 11:59 11:59 11:59 Intake Total 338 / 338 963 / 963 590 / 590 Output Total 775 / 775 950 / 950 1000 / 1000 Balance -437 / -437 13 / 13 -410 / -410 Weight 132 lb 9.6 oz 136 lb 4.8 oz 136 lb 9 oz Microbiology Reports for the Last 24 Hours: Microbiology 09/24/21 18:22 Blood Blood Culture - Preliminary NO GROWTH AFTER 48 HOURS 09/24/21 18:22 Blood Blood Culture - Preliminary NO GROWTH AFTER 48 HOURS 09/25/21 11:50 Sputum - Expectorated Sputum Gram Stain - Final - Constitutional no acute distress Comments: She is sleeping on her side and appears comfortable. Respiratory rate is 36. - *Routine Respiratory Exam Present: crackles (Fine crackles throughout. Good air movement posteriorly) - *Routine Cardiovascular Exam Present: RRR (Monitor showing mostly paced rhythm with a rate of 100 110. Multiple PVCs.) - *Routine Abdominal Exam Present: soft, normoactive
--- NOTE | 2021-09-27 08:53 | XR_ITS ---
FINAL REPORT TECHNIQUE: Single view chest CLINICAL HISTORY: f/u FINDINGS: A single view of the chest was obtained. No prior exam is available for comparison. There is a left subclavian ICD in place. The heart and mediastinum are within normal limits. There are diffuse pulmonary opacities consistent with pneumonia or ARDS. There is no pneumothorax. Osseous structures are unremarkable. IMPRESSION: Diffuse pulmonary opacities consistent with pneumonia or ARDS. Reviewed, Interpreted and Dictated by Jan Waller III, MD Transcribed by Brandy Hyatt Authenticated by Jan Waller III, MD on 09/27/2021 10:30:36 AM [facility]
--- NOTE | 2021-09-27 09:23 | HMH.PHACONS ---
- Pharmacy Consult Date: 09/27/21 Time: 09:23 Referring provider: DR HENLEY Reason for Consult:: VANCOMYCIN DOSING ADJUSTMENT Allergies and ADEs:: Allergies Allergy/AdvReac Type Severity Reaction Status Date / Time aspirin Allergy Severe Difficulty Verified 03/21/21 14:59 Breathing iodine Allergy Severe Difficulty Verified 03/21/21 14:59 Breathing sulfite Allergy Severe Difficulty Verified 03/21/21 14:59 Breathing tolmetin Allergy Severe Difficulty Verified 03/21/21 14:59 Breathing yellow dye Allergy Severe Difficulty Verified 03/21/21 14:59 Breathing cephalexin Allergy Unknown Hives, Verified 03/21/21 14:59 Wheezing shellfish derived Allergy Unknown Difficulty Verified 03/21/21 14:59 Breathing Home Medications:: Home Medications Medication Instructions Recorded Confirmed Type Albuterol Sulfate [Ventolin HFA 1 - 2 puffs IH Q4-6H PRN 01/28/19 09/25/21 History Inhaler] Furosemide [Lasix 40mg tablet] 40 mg PO DAILY 01/28/19 09/25/21 History Insulin Glargine,Hum.rec.anlog 10 unit SQ HS 01/28/19 09/25/21 History [Toujeo Solostar] Levothyroxine Sodium 88 mcg PO DAILY 01/28/19 09/25/21 History [Levothyroxine 88mcg (0.088mg) Tab] Linagliptin [Tradjenta 5mg tablet] 5 mg PO DAILY 01/28/19 09/25/21 History Spironolactone [Spironolactone 25 mg PO DAILY 01/28/19 09/25/21 History 25mg Tablet] Theophylline Anhydrous 200 mg PO TID 01/28/19 09/25/21 History [Theophylline] carvediloL [Carvedilol 6.25mg Tab] 6.25 mg PO BID 01/28/19 09/25/21 History digoxin 125 mcg (0.125 mg) tablet 125 mcg PO DAILY 03/27/19 09/25/21 History glimepiride 4 mg tablet 4 mg PO BID 03/27/19 09/25/21 History acetaminophen 325 mg capsule 325 mg PO QIDP PRN 12/16/20 09/25/21 History ibuprofen 600 mg tablet 600 mg PO Q8HP PRN 12/16/20 09/25/21 History Insulin Lispro [Humalog] 6 unit SQ BID 03/18/21 09/25/21 History guaiFENesin [Mucinex 600mg tablet] 600 mg PO BID 03/18/21 09/25/21 History predniSONE [Deltasone 1mg tablet] 1 mg PO DAILY 03/18/21 09/25/21 History nitrofurantoin macrocrystaL 50 mg PO DAILY 09/21/21 09/25/21 History [Nitrofurantoin] Cefdinir [Omnicef 300mg Capsule] 300 mg PO BID 09/25/21 09/25/21 History Ipratropium/Albuterol Sulfate 3 ml IH TID 09/25/21 09/25/21 History [Duoneb 3mL neb] Height: 1.57 m Weight: 61.944 kg Laboratory Results:: Laboratory Results - last 24 hr 09/26/21 06:53: Troponin I 0.15 H 09/26/21 14:09: POC Glucose 187 H 09/26/21 15:30: Specimen Source Right brachial, O2 % 90, ABG pH 7.27 L, ABG pCO2 28.2 L, ABG pO2 68.4 L, ABG HCO3 12.5 L, ABG Total CO2 13.4 L, ABG Base Excess -14.5 L, Mathew Test Acceptable, Vent Rate 20 09/26/21 17:06: POC Glucose 222 H 09/27/21 05:59: Sodium 135 L, Potassium 4.5, Chloride 109 H, Carbon Dioxide 16 L, Anion Gap 14.5, BUN 42 H, Creatinine 1.60 H D, Estimated Creat Clear 30, Estimated GFR 31 L, Est GFR ( Amer) 38 L D, Glucose 115 H D, Calcium 8.0 L 09/27/21 06:50: WBC 36.5 H* D, RBC 3.98 L, Hgb 12.0 L, Hct 37.1, MCV 93.3, MCH 30.2, MCHC 32.3, RDW 16.4, Plt Count 252, MPV 8.4, Neut % (Auto) 92.9 H, Lymph % (Auto) 3.5 L, [place] % (Auto) 2.7, Eos % (Auto) 0.7, Baso % (Auto) 0.3, Neut # (Auto) 33.9 H, Lymph # (Auto) 1.3, [place] # (Auto) 1.0, Eos # (Auto) 0.3, Baso # (Auto) 0.1, Total Counted 100, Neutrophils % (Manual) 92 H, Band Neutrophils % 4.0, Lymphocytes % (Manual) 4 L, Platelet Estimate Normal, Anisocytosis 1+ 09/27/21 06:51: Specimen Source Right brachial, O2 % 90, ABG pH 7.21 L*, ABG pCO2 41.7, ABG pO2 65.9 L, ABG HCO3 16.2 L, ABG Total CO2 17.5 L, ABG O2 Saturation 89 L, ABG Base Excess -11.7 L, Mathew Test Patient unable, Vent Rate 20 Medical History: Reports:: Asthma, Atherosclerotic Heart Disease, Cardiomyopathy, Congestive Heart Failure, Depression, Diabetes Mellitus Type 2, Gastroesophageal Reflux Disease(GERD), Hyperlipidemia, Hypertension, Internal Pacemaker, Lung Disease, Supraventricular Tachycardia, Urinary Tract Inf
--- NOTE | 2021-09-27 09:27 | HMH.PULMCON ---
*Admission Date: 09/24/21 *Reason for consult:: Acute hypoxic respiratory failure, pneumonia *History of present illness: Ms. Dorman is a 75-year-old female history of CHF, recently discharged from the hospital with respiratory failure, CHF exacerbation and pneumonia presented to the hospital again with worsening respiratory distress and pulmonary was called for further management [facility] History Medical History: Reports:: Asthma, Atherosclerotic Heart Disease, Cardiomyopathy, Congestive Heart Failure, Depression, Diabetes Mellitus Type 2, Gastroesophageal Reflux Disease(GERD), Hyperlipidemia, Hypertension, Internal Pacemaker, Lung Disease, Supraventricular Tachycardia, Urinary Tract Infection Denies:: Cancer, Diabetes Mellitus Type 1, MRSA, Palpitations, Seizures *Have you ever received a pneumonia vaccine?: Yes *Have you received a flu vaccine this season?: Yes Other Medical History: Reports: Anemia, Arthritis, Hoarseness, Hypothyroidism, Thyroid Disease Laterality Cases: Bilateral: Arthroscopy Hip, Arthroscopy Knee, Tonsillectomy, Total Hip Replacement Other Surgeries: Yes: No Previous Surgery, Cardiac Catheterization, Colonoscopy, Pacemaker, Tubal Ligation, Other Amputation: No Fractures: No - *Social History Last grade of school completed: GED Smoking Status: Never smoker Alcohol Intake: never Substance Use Type: denies use *Occupational Status:: retired, disabled Housing: house Household Members: none *Travel in the last 8 weeks: None - Psychiatric History Pschychiatric History:: Reports:: Depression Family Hx:: Asthma, Cancer, Coronary Artery Disease, Heart Attack, Hypertension ROS - Review of Systems Limited to patient appears weak and lethargic - Cons Reports anorexia, Reports body ache(s), Reports fatigue - Card Reports shortness of breath with activity - Resp Respiratory: Reports shortness of breath, Reports chest congestion, Reports excessive phlegm production, Reports cough with sputum production Meds Home Medications Medication Instructions Recorded Confirmed Type Albuterol Sulfate [Ventolin HFA 1 - 2 puffs IH Q4-6H PRN 01/28/19 09/25/21 History Inhaler] Furosemide [Lasix 40mg tablet] 40 mg PO DAILY 01/28/19 09/25/21 History Insulin Glargine,Hum.rec.anlog 10 unit SQ HS 01/28/19 09/25/21 History [Nya Healy] Levothyroxine Sodium 88 mcg PO DAILY 01/28/19 09/25/21 History [Levothyroxine 88mcg (0.088mg) Tab] Linagliptin [Tradjenta 5mg tablet] 5 mg PO DAILY 01/28/19 09/25/21 History Spironolactone [Spironolactone 25 mg PO DAILY 01/28/19 09/25/21 History 25mg Tablet] Theophylline Anhydrous 200 mg PO TID 01/28/19 09/25/21 History [Theophylline] carvediloL [Carvedilol 6.25mg Tab] 6.25 mg PO BID 01/28/19 09/25/21 History digoxin 125 mcg (0.125 mg) tablet 125 mcg PO DAILY 03/27/19 09/25/21 History glimepiride 4 mg tablet 4 mg PO BID 03/27/19 09/25/21 History acetaminophen 325 mg capsule 325 mg PO QIDP PRN 12/16/20 09/25/21 History ibuprofen 600 mg tablet 600 mg PO Q8HP PRN 12/16/20 09/25/21 History Insulin Lispro [Humalog] 6 unit SQ BID 03/18/21 09/25/21 History guaiFENesin [Mucinex 600mg tablet] 600 mg PO BID 03/18/21 09/25/21 History predniSONE [Deltasone 1mg tablet] 1 mg PO DAILY 03/18/21 09/25/21 History nitrofurantoin macrocrystaL 50 mg PO DAILY 09/21/21 09/25/21 History [Nitrofurantoin] Cefdinir [Omnicef 300mg Capsule] 300 mg PO BID 09/25/21 09/25/21 History Ipratropium/Albuterol Sulfate 3 ml IH TID 09/25/21 09/25/21 History [Duoneb 3mL neb] Allergies Allergy/AdvReac Type Severity Reaction Status Date / Time aspirin Allergy Severe Difficulty Verified 03/21/21 14:59 Breathing iodine Allergy Severe Difficulty Verified 03/21/21 14:59 Breathing sulfite Allergy Severe Difficulty Verified 03/21/21 14:59 Breathing tolmetin Allergy Severe Difficulty Verified 03/21/21 14:59 Breathing yellow dye Allergy Severe Difficulty Verified 03/21/21 14:59
--- NOTE | 2021-09-27 12:02 | CA_ITS ---
FINAL REPORT CLINICAL HISTORY: ELEVATED D-DIMER,HYPOXIA FINDINGS: Color Doppler, duplex Doppler and compression sonography of the bilateral lower extremities was performed. There is no evidence of deep venous thrombosis from the level of the groin to the calf. The deep veins are patent and compressible. IMPRESSION: No evidence of deep venous thrombosis bilateral lower extremities. Reviewed, Interpreted and Dictated by Jan Waller III, MD Transcribed by Yashira Mcarthur Authenticated by Jan Waller III, MD on 09/27/2021 03:44:16 PM [facility]
--- NOTE | 2021-09-27 14:21 | DIET.NUTRFU ---
Patient is declining with her pulmonary status and renal fxn. Using a Bipap when tried to visit, family at bedside. Spoke to nursing and oral intake is not feasible at this time. Tray was held, diet still ordered. IVF fluid for hydration are in place. Will continue to follow with POC
--- NOTE | 2021-09-27 15:54 | PC.NURSE ---
Pt has been restless and confused off and on throughout shift. She has tried to remove her bipap multiple times. Family has been at bedside and assisted with patient. +2 edema to BLE. Distal pulses are faint. She has been paced w/HR in the 110's on telemetry. She had an episode at lunch time where bipap was removed and she was placed on NC. O2 remained in the low 90's but HR dropped to the 60's and was irregular with occasional pacer spikes. After approx 2 mins pts son came to the door and asked for help. Upon entering room patient was mcclain and non responsive and O2 had dropped to 69%. She was immediately placed back on bipap and HR returned to the 110's and was regularly paced on tele. O2 came back to mid 90's and pt became more alert. Son stated he had attempted to give patient a drink of water when this happened. Dr Grullon and Dr Wyatt notified. Pt was made NPO. She also reported back pain, Dr Grullon notified and 1mg morphine q2hr prn ordered and administered. Pt was resting w/eyes closed on reassessment.
[2021-09-27 17:43] LABS: POC Glucose,Bedside 116 (70-110)
[2021-09-27 17:43] LABS: POC Glucose,Bedside 151 (70-110)
--- NOTE | 2021-09-27 17:54 | PC.NURSE ---
Notified respiratory that Dr Wyatt placed an order for sputum induction; Ct ordered but patient can't be transported with bipap and she is too unstable for transfer at this time; Dr Grullon said we will reassess tomorrow;
--- NOTE | 2021-09-27 18:13 | PC.NURSE ---
300mls of urine out this shift
--- NOTE | 2021-09-27 20:29 | HMH.ITSTN ---
CT on hold until 09/28/21 per RN due to patient condition @2030
[2021-09-27 21:41] LABS: POC Glucose,Bedside 136 (70-110)
[2021-09-27 22:15] LABS: Vancomycin,Trough 11.8 ug/mL (5.0-10.0)
[2021-09-28] VITALS (22 sets, daily range): BP systolic 97–125; BP diastolic 50–76; PULSE 72–120; RESP 20–39; TEMP 36.4–37.3; O2SAT 89–100; BMI 25.8
[2021-09-28 06:19] LABS: MANUAL DIFFERENTIAL MANUAL DIFFERENTIAL (MANUAL DIFF)
[2021-09-28 06:28] LABS: Basophils # 0.1 K/mm3 (0-0.2); Basophils % 0.3 % (0.1-2.0); Eosinophils # 0.6 K/mm3 (0.0-0.4); Eosinophils % 2.6 % (0.1-12.0); Hematocrit 35.6 % (37.0-47.0); Hemoglobin 11.5 g/dL (12.2-16.2); Lymphocytes % 4.2 % (10-50); Mean Corpuscular HGB Conc 32.3 g/dL (31.8-35.4); Mean Corpuscular Hemoglobin 30.4 pg (27.0-31.2); Mean Corpuscular Volume 94.1 fl (81-99); Mean Platelet Volume 8.9 fl (7.4-10.4); Monocytes # 0.8 K/mm3 (0.1-1.0); Monocytes % 3.3 % (1.7-9.3); Neutrophils % 89.7 % (37.0-80.0); Platelet Count 217 K/mm3 (142-424); Red Blood Count 3.78 M/mm3 (4.20-5.40); Red Cell Distribution Width 16.6 % (11.5-17.5); White Blood Count 23.4 K/mm3 (4.8-10.8)
[2021-09-28 06:34] LABS: Alanine Aminotransferase 53 U/L (12-78); Albumin Level 2.7 g/dl (3.5-5.0); Alkaline Phosphatase 116 U/L (38-126); Anion Gap 13.2 mEq/L (5-15); Aspartate Amino Transferase 115 U/L (14-36); Blood Urea Nitrogen 54 mg/dl (7-17); Carbon Dioxide 20 mmol/L (22.0-30.0); Chloride 110 mmol/L (98-107); Creatinine Clearance Estimated 27 mL/min (50-200); Estimated Glomerular Filt Rate 27 ml/min (>60); GFR (African American) 33 ML/MIN (>60); Globulin 2.6 g/dL (1.3-3.2); Glucose 128 mg/dl (74-100); Potassium 4.2 mmoL/L (3.5-5.1); Sodium 139 mmol/L (136-145); Total Protein,Serum 5.3 g/dl (6.3-8.2)
[2021-09-28 07:14] LABS: POC Glucose,Bedside 121 (70-110)
--- NOTE | 2021-09-28 08:01 | HMH.PNCARD ---
Subjective Date: 09/28/21 Time: 07:30 Principal diagnosis: Pneumonia, Cardiomyopathy, AICD Interval history: 75 yo WF in bed continues on BiPAP. Sleeping currently but reportedly responds with stimuli. Haldol X 1 overnight for agitation. Short Non-sustained run of V. Tach this AM with brief resp distress. No AICD firing. Off esmolol since yesterday AM. HR around 110 bpm BP around 100 mm Hg Telemetry is V. Paced Exam Vital signs and Labs for Last 24 Hours: Temp Pulse Resp BP Pulse Ox 97.8 F 114 H 28 H 111/56 L 95 09/28/21 07:50 09/28/21 07:50 09/28/21 07:50 09/28/21 07:50 09/28/21 07:50 Laboratory Results - last 24 hr 09/26/21 20:09: POC Glucose 151 H 09/27/21 05:23: POC Glucose 116 H 09/27/21 06:50: Total Counted 100, Neutrophils % (Manual) 92 H, Band Neutrophils % 4.0, Lymphocytes % (Manual) 4 L, Platelet Estimate Normal, Anisocytosis 1+ 09/27/21 19:40: Vancomycin Trough 11.8 H 09/27/21 21:33: POC Glucose 136 H 09/28/21 05:32: Sodium 139, Potassium 4.2, Chloride 110 H, Carbon Dioxide 20 L, Anion Gap 13.2, BUN 54 H D, Creatinine 1.80 H, Estimated Creat Clear 27, Estimated GFR 27 L, Est GFR ( Amer) 33 L, Glucose 128 H, Calcium 8.0 L, Total Bilirubin 2.0 H, AST 115 H D, ALT 53 D, Alkaline Phosphatase 116, Total Protein 5.3 L, Albumin 2.7 L, Globulin 2.6, Albumin/Globulin Ratio 1.0 L 09/28/21 05:32: WBC 23.4 H* D, RBC 3.78 L, Hgb 11.5 L, Hct 35.6 L, MCV 94.1, MCH 30.4, MCHC 32.3, RDW 16.6, Plt Count 217, MPV 8.9, Neut % (Auto) 89.7 H, Lymph % (Auto) 4.2 L, [place] % (Auto) 3.3, Eos % (Auto) 2.6, Baso % (Auto) 0.3, Neut # (Auto) 21.0 H, Lymph # (Auto) 1.0, [place] # (Auto) 0.8, Eos # (Auto) 0.6 H, Baso # (Auto) 0.1 09/28/21 06:37: POC Glucose 121 H I & O for Last 24 hours: Intake & Output 09/25/21 09/26/21 09/27/21 09/28/21 11:59 11:59 11:59 11:59 Intake Total 338 / 338 963 / 963 990 / 990 1050 / 1050 Output Total 775 / 775 950 / 950 1000 / 1000 680 / 680 Balance -437 / -437 13 / 13 -10 / -10 370 / 370 Weight 132 lb 9.6 oz 136 lb 4.8 oz 136 lb 9 oz 140 lb 8 oz Microbiology Reports for the Last 24 Hours: Microbiology 09/25/21 11:50 Sputum - Expectorated Sputum Gram Stain - Final 09/25/21 11:50 Sputum - Expectorated Sputum Sputum Culture - Preliminary - *Routine Respiratory Exam Present: rhonchi, diminished air movement - *Routine Cardiovascular Exam Present: tachycardia - *Routine Extremities Exam Present: edema. Absent: cyanosis, clubbing Progress Note: A&P (1) Sepsis Status: Acute (2) Bilateral pneumonia Status: Acute (3) CHF (congestive heart failure) Status: Acute (4) Respiratory failure Status: Acute (5) Elevated brain natriuretic peptide (BNP) level Status: Acute (6) Cirrhosis Status: Acute (7) Cystocele, midline Status: Acute (8) Hyperbilirubinemia Status: Acute (9) PAULSON (nonalcoholic steatohepatitis) Status: Acute (10) Dilated cardiomyopathy Status: Chronic (11) Hypothyroidism Status: Chronic (12) Type 2 diabetes mellitus Status: Chronic (13) C. difficile colitis Status: Acute (14) Renal insufficiency Status: Acute Assessment and Plan for All Diagnoses:: 1. Sepsis, bilateral pneumonia, respiratory distress, on BiPAP. On Vancomycin and piperacillin/tazobactam. Per PCP and Pulmonary. 2. Sinus tach related to #1, esmolol gtt stopped due to hypotension. BP currently stable. Digoxin restarted. 3. Systolic CHF, Cardiomyopathy with EF 25% with BiV AICD (interrogated this admission with no arrhythmias noted and battery life of 1.9 yrs left). Cardiac meds on hold due to hypotension. Use diuretics cautiously due to renal insufficiency and hypotension risk. No additional IVF at this time. 4. C. diff colitis, on metronidazole. 5. PAULSON 6. DM, type 2, on insulin 7. Hypothyroidism, on replacement. 8. Renal insufficiency, stage 3, acute this admission. Poor prognosis
[2021-09-28 08:19] LABS: Ammonia 12 umol/L (9-30)
--- NOTE | 2021-09-28 08:28 | HMH.PHACONS ---
- Pharmacy Consult Date: 09/28/21 Time: 08:28 Referring provider: DR. HENLEY Reason for Consult:: VANCOMYCIN LEVEL Allergies and ADEs:: Allergies Allergy/AdvReac Type Severity Reaction Status Date / Time aspirin Allergy Severe Difficulty Verified 03/21/21 14:59 Breathing iodine Allergy Severe Difficulty Verified 03/21/21 14:59 Breathing sulfite Allergy Severe Difficulty Verified 03/21/21 14:59 Breathing tolmetin Allergy Severe Difficulty Verified 03/21/21 14:59 Breathing yellow dye Allergy Severe Difficulty Verified 03/21/21 14:59 Breathing cephalexin Allergy Unknown Hives, Verified 03/21/21 14:59 Wheezing shellfish derived Allergy Unknown Difficulty Verified 03/21/21 14:59 Breathing Home Medications:: Home Medications Medication Instructions Recorded Confirmed Type Albuterol Sulfate [Ventolin HFA 1 - 2 puffs IH Q4-6H PRN 01/28/19 09/25/21 History Inhaler] Furosemide [Lasix 40mg tablet] 40 mg PO DAILY 01/28/19 09/25/21 History Insulin Glargine,Hum.rec.anlog 10 unit SQ HS 01/28/19 09/25/21 History [Toujeo Solostar] Levothyroxine Sodium 88 mcg PO DAILY 01/28/19 09/25/21 History [Levothyroxine 88mcg (0.088mg) Tab] Linagliptin [Tradjenta 5mg tablet] 5 mg PO DAILY 01/28/19 09/25/21 History Spironolactone [Spironolactone 25 mg PO DAILY 01/28/19 09/25/21 History 25mg Tablet] Theophylline Anhydrous 200 mg PO TID 01/28/19 09/25/21 History [Theophylline] carvediloL [Carvedilol 6.25mg Tab] 6.25 mg PO BID 01/28/19 09/25/21 History digoxin 125 mcg (0.125 mg) tablet 125 mcg PO DAILY 03/27/19 09/25/21 History glimepiride 4 mg tablet 4 mg PO BID 03/27/19 09/25/21 History acetaminophen 325 mg capsule 325 mg PO QIDP PRN 12/16/20 09/25/21 History ibuprofen 600 mg tablet 600 mg PO Q8HP PRN 12/16/20 09/25/21 History Insulin Lispro [Humalog] 6 unit SQ BID 03/18/21 09/25/21 History guaiFENesin [Mucinex 600mg tablet] 600 mg PO BID 03/18/21 09/25/21 History predniSONE [Deltasone 1mg tablet] 1 mg PO DAILY 03/18/21 09/25/21 History nitrofurantoin macrocrystaL 50 mg PO DAILY 09/21/21 09/25/21 History [Nitrofurantoin] Cefdinir [Omnicef 300mg Capsule] 300 mg PO BID 09/25/21 09/25/21 History Ipratropium/Albuterol Sulfate 3 ml IH TID 09/25/21 09/25/21 History [Duoneb 3mL neb] Height: 1.57 m Weight: 63.73 kg Laboratory Results:: Laboratory Results - last 24 hr 09/26/21 20:09: POC Glucose 151 H 09/27/21 05:23: POC Glucose 116 H 09/27/21 19:40: Vancomycin Trough 11.8 H 09/27/21 21:33: POC Glucose 136 H 09/28/21 05:32: Sodium 139, Potassium 4.2, Chloride 110 H, Carbon Dioxide 20 L, Anion Gap 13.2, BUN 54 H D, Creatinine 1.80 H, Estimated Creat Clear 27, Estimated GFR 27 L, Est GFR ( Amer) 33 L, Glucose 128 H, Calcium 8.0 L, Total Bilirubin 2.0 H, AST 115 H D, ALT 53 D, Alkaline Phosphatase 116, Total Protein 5.3 L, Albumin 2.7 L, Globulin 2.6, Albumin/Globulin Ratio 1.0 L 09/28/21 05:32: Ammonia 12 09/28/21 05:32: WBC 23.4 H* D, RBC 3.78 L, Hgb 11.5 L, Hct 35.6 L, MCV 94.1, MCH 30.4, MCHC 32.3, RDW 16.6, Plt Count 217, MPV 8.9, Neut % (Auto) 89.7 H, Lymph % (Auto) 4.2 L, [place] % (Auto) 3.3, Eos % (Auto) 2.6, Baso % (Auto) 0.3, Neut # (Auto) 21.0 H, Lymph # (Auto) 1.0, [place] # (Auto) 0.8, Eos # (Auto) 0.6 H, Baso # (Auto) 0.1 09/28/21 06:37: POC Glucose 121 H Medical History: Reports:: Asthma, Atherosclerotic Heart Disease, Cardiomyopathy, Congestive Heart Failure, Depression, Diabetes Mellitus Type 2, Gastroesophageal Reflux Disease(GERD), Hyperlipidemia, Hypertension, Internal Pacemaker, Lung Disease, Supraventricular Tachycardia, Urinary Tract Infection Denies:: Cancer, Diabetes Mellitus Type 1, MRSA, Palpitations, Seizures Assessment and Plan (1) Sepsis Status: Acute Category: Medical Code(s): A41.9 - Sepsis, unspecified organism (2) Bilateral pneumonia Status: Acute Qualifiers: Pneumonia type: due to unspecified organism Lung location: unspecif
[2021-09-28 08:42] LABS: Eosinophils % 6 % (0-3); Lymphocytes % 8 % (10-50); Monocytes % 8 % (2-9); Neutrophils % 78 % (42-76); Platelet Estimate Normal; Total Cells Counted 100
[2021-09-28 08:44] LABS: Anisocytosis 1+; Burr Cells 1+
--- NOTE | 2021-09-28 08:59 | HMH.ACPN2 ---
<Olivia Marin - Last Filed: 09/28/21 09:00> Internal Medicine - PN: Subj *Date: 09/28/21 *Time: 09:00 Interval history: Generally has been stable through the night. She did need 1 dose of Haldol for restlessness. Also she had a run of V. tach. Mostly she stayed in a paced rhythm tachycardic with frequent PVCs.. Pacer interrogated by cardiology which showed no action. O2 sats have been stable. Blood pressures been stable. According to family she tried to eat something yesterday but immediately became short of breath and had to be placed back on BiPAP. She did know her family. She has been lethargic since receiving the Haldol. Laboratory data this morning show decrease in her white blood cell count 23,400 with a hemoglobin of 11.5 hematocrit of 35.6. Blood chemistry shows sodium of 139 and potassium of 4.2. BUN is 54 and creatinine is 1.8. Ammonia is normal at 12. Bilirubin has decreased to 2. Venous Doppler study was negative for DVT. Repeat chest x-ray yesterday showed diffuse pulmonary opacities consistent with pneumonia or ARDS Exam Vital signs and Labs for Last 24 Hours: Temp Pulse Resp BP Pulse Ox 98.2 F 115 H 30 H 113/63 95 09/28/21 08:00 09/28/21 08:41 09/28/21 08:00 09/28/21 08:00 09/28/21 08:00 Laboratory Results - last 24 hr 09/26/21 20:09: POC Glucose 151 H 09/27/21 05:23: POC Glucose 116 H 09/27/21 19:40: Vancomycin Trough 11.8 H 09/27/21 21:33: POC Glucose 136 H 09/28/21 05:32: Sodium 139, Potassium 4.2, Chloride 110 H, Carbon Dioxide 20 L, Anion Gap 13.2, BUN 54 H D, Creatinine 1.80 H, Estimated Creat Clear 27, Estimated GFR 27 L, Est GFR ( Amer) 33 L, Glucose 128 H, Calcium 8.0 L, Total Bilirubin 2.0 H, AST 115 H D, ALT 53 D, Alkaline Phosphatase 116, Total Protein 5.3 L, Albumin 2.7 L, Globulin 2.6, Albumin/Globulin Ratio 1.0 L 09/28/21 05:32: Ammonia 12 09/28/21 05:32: WBC 23.4 H* D, RBC 3.78 L, Hgb 11.5 L, Hct 35.6 L, MCV 94.1, MCH 30.4, MCHC 32.3, RDW 16.6, Plt Count 217, MPV 8.9, Neut % (Auto) 89.7 H, Lymph % (Auto) 4.2 L, [place] % (Auto) 3.3, Eos % (Auto) 2.6, Baso % (Auto) 0.3, Neut # (Auto) 21.0 H, Lymph # (Auto) 1.0, [place] # (Auto) 0.8, Eos # (Auto) 0.6 H, Baso # (Auto) 0.1, Total Counted 100, Neutrophils % (Manual) 78 H, Lymphocytes % (Manual) 8 L, Monocytes % (Manual) 8, Eosinophils % (Manual) 6 H, Platelet Estimate Normal, Anisocytosis 1+, [place] Cells 1+ 09/28/21 06:37: POC Glucose 121 H I & O for Last 24 hours: Intake & Output 09/25/21 09/26/21 09/27/21 09/28/21 11:59 11:59 11:59 11:59 Intake Total 338 / 338 963 / 963 990 / 990 1050 / 1050 Output Total 775 / 775 950 / 950 1000 / 1000 680 / 680 Balance -437 / -437 13 / 13 -10 / -10 370 / 370 Weight 132 lb 9.6 oz 136 lb 4.8 oz 136 lb 9 oz 140 lb 8 oz Microbiology Reports for the Last 24 Hours: Microbiology 09/25/21 11:50 Sputum - Expectorated Sputum Gram Stain - Final 09/25/21 11:50 Sputum - Expectorated Sputum Sputum Culture - Preliminary - Constitutional no acute distress (Respiratory rate is in the 30s and breathing is not as labored.) - *Routine Respiratory Exam Present: rhonchi (Less anteriorly) - *Routine Cardiovascular Exam Present: RRR Comments: Mostly paced with frequent PVCs with couplets and triplets - *Routine Abdominal Exam Present: soft, normoactive bowel sounds. Absent: distended - *Routine Extremities Exam Absent: edema - *Routine Skin Exam Comments: Color seems to be improved - *Routine Neurological Exam Absent: alert (Difficult to determine. Patient not awakened) Assessment and Plan (1) Sepsis Status: Acute Category: Medical Code(s): A41.9 - Sepsis, unspecified organism (2) Bilateral pneumonia Status: Acute Qualifiers: Pneumonia type: due to unspecified organism Lung location: unspecified part of lung Qualified Code(s): J18.9 - Pneumonia, unspecified organism Category: Medical Code(s): J18.9 - Pneumonia, unspecified organism (
--- NOTE | 2021-09-28 10:42 | HMH.ACPN ---
Internal Medicine - PN: Subj *Date: 09/28/21 *Time: 10:42 Exam Vital signs and Labs for Last 24 Hours: Temp Pulse Resp BP Pulse Ox 98.2 F 115 H 30 H 97/57 L 95 09/28/21 08:00 09/28/21 10:00 09/28/21 10:00 09/28/21 10:00 09/28/21 10:00 Laboratory Results - last 24 hr 09/26/21 20:09: POC Glucose 151 H 09/27/21 05:23: POC Glucose 116 H 09/27/21 19:40: Vancomycin Trough 11.8 H 09/27/21 21:33: POC Glucose 136 H 09/28/21 05:32: Sodium 139, Potassium 4.2, Chloride 110 H, Carbon Dioxide 20 L, Anion Gap 13.2, BUN 54 H D, Creatinine 1.80 H, Estimated Creat Clear 27, Estimated GFR 27 L, Est GFR ( Amer) 33 L, Glucose 128 H, Calcium 8.0 L, Total Bilirubin 2.0 H, AST 115 H D, ALT 53 D, Alkaline Phosphatase 116, Total Protein 5.3 L, Albumin 2.7 L, Globulin 2.6, Albumin/Globulin Ratio 1.0 L 09/28/21 05:32: Ammonia 12 09/28/21 05:32: WBC 23.4 H* D, RBC 3.78 L, Hgb 11.5 L, Hct 35.6 L, MCV 94.1, MCH 30.4, MCHC 32.3, RDW 16.6, Plt Count 217, MPV 8.9, Neut % (Auto) 89.7 H, Lymph % (Auto) 4.2 L, [place] % (Auto) 3.3, Eos % (Auto) 2.6, Baso % (Auto) 0.3, Neut # (Auto) 21.0 H, Lymph # (Auto) 1.0, [place] # (Auto) 0.8, Eos # (Auto) 0.6 H, Baso # (Auto) 0.1, Total Counted 100, Neutrophils % (Manual) 78 H, Lymphocytes % (Manual) 8 L, Monocytes % (Manual) 8, Eosinophils % (Manual) 6 H, Platelet Estimate Normal, Anisocytosis 1+, [place] Cells 1+ 09/28/21 06:37: POC Glucose 121 H I & O for Last 24 hours: Intake & Output 09/25/21 09/26/21 09/27/21 09/28/21 23:59 23:59 23:59 23:59 Intake Total 915 / 915 626 / 626 1650 / 1650 150 / 150 Output Total 1175 / 1175 550 / 550 1300 / 1480 380 / 380 Balance -260 / -260 76 / 76 350 / 170 -230 / -230 Weight 61.8 kg 61.944 kg 63.73 kg Microbiology Reports for the Last 24 Hours: Microbiology 09/25/21 11:50 Sputum - Expectorated Sputum Gram Stain - Final 09/25/21 11:50 Sputum - Expectorated Sputum Sputum Culture - Preliminary Assessment and Plan (1) Sepsis Status: Acute Category: Medical Code(s): A41.9 - Sepsis, unspecified organism (2) Bilateral pneumonia Status: Acute Qualifiers: Pneumonia type: due to unspecified organism Lung location: unspecified part of lung Qualified Code(s): J18.9 - Pneumonia, unspecified organism Category: Medical Code(s): J18.9 - Pneumonia, unspecified organism (3) CHF (congestive heart failure) Status: Acute Qualifiers: Heart failure type: unspecified Heart failure chronicity: acute on chronic Qualified Code(s): I50.9 - Heart failure, unspecified Category: Medical Code(s): I50.9 - Heart failure, unspecified (4) Respiratory failure Status: Acute Qualifiers: Chronicity: acute on chronic Respiratory failure complication: hypoxia and hypercapnia Qualified Code(s): J96.21 - Acute and chronic respiratory failure with hypoxia; J96.22 - Acute and chronic respiratory failure with hypercapnia Category: Medical Code(s): J96.90 - Respiratory failure, unspecified, unspecified whether with hypoxia or hypercapnia (5) Elevated brain natriuretic peptide (BNP) level Status: Acute Category: Medical Code(s): R79.89 - Other specified abnormal findings of blood chemistry (6) Cirrhosis Status: Acute Qualifiers: Hepatic cirrhosis type: unspecified hepatic cirrhosis Ascites presence: without ascites Qualified Code(s): K74.60 - Unspecified cirrhosis of liver Category: Medical Code(s): K74.60 - Unspecified cirrhosis of liver (7) Cystocele, midline Status: Acute Category: Medical Code(s): N81.11 - Cystocele, midline (8) Hyperbilirubinemia Status: Acute Category: Medical Code(s): E80.6 - Other disorders of bilirubin metabolism (9) PAULSON (nonalcoholic steatohepatitis) Status: Acute Category: Medical Code(s): K75.81 - Nonalcoholic steatohepatitis (PAULSON) (10) Dilated cardiomyopathy Status: Chronic Category: Medical Code(s): I42.0 - Dilated cardiomyopathy (11) Hy
[2021-09-28 11:50] LABS: POC Glucose,Bedside 128 (70-110)
--- NOTE | 2021-09-28 12:50 | PC.NURSE ---
RESP CARE NOTE: Pt NT suctioned for sputum specimen, tolerated well. Specimen sent to lab.
--- NOTE | 2021-09-28 13:44 | HMH.PULMPN ---
Internal Medicine - PN: Subj *Date: 09/28/21 *Time: 13:44 Interval history: No acute respiratory events overnight. Exam - Constitutional Constitutional:: Absent: no acute distress, comfortable - HENMT Exam HENMT: Present: normocephalic, atraumatic - Eye Exam Eyes:: Present: normal appearance both eyes and related structures - Neck Exam Neck:: Present: normal visual inspection - Respiratory Exam Respiratory:: Present: respiratory distress, crackles, rhonchi. Absent: able to speak in complete sentences - Cardiovascular Exam Cardiac:: Present: S1, S2 - GI Exam GI:: Present: soft - Skin Exam Skin: Present: warm - Neurological Exam Neurological: Present: awake. Absent: alert, normal cognition - Extremities Exam Extremities: Present: no cyanosis, no clubbing, clubbing Assessment and Plan (1) Sepsis Status: Acute Category: Medical Code(s): A41.9 - Sepsis, unspecified organism (2) Bilateral pneumonia Status: Acute Qualifiers: Pneumonia type: due to unspecified organism Lung location: unspecified part of lung Qualified Code(s): J18.9 - Pneumonia, unspecified organism Category: Medical Code(s): J18.9 - Pneumonia, unspecified organism (3) CHF (congestive heart failure) Status: Acute Qualifiers: Heart failure type: unspecified Heart failure chronicity: acute on chronic Qualified Code(s): I50.9 - Heart failure, unspecified Category: Medical Code(s): I50.9 - Heart failure, unspecified (4) Respiratory failure Status: Acute Qualifiers: Chronicity: acute on chronic Respiratory failure complication: hypoxia and hypercapnia Qualified Code(s): J96.21 - Acute and chronic respiratory failure with hypoxia; J96.22 - Acute and chronic respiratory failure with hypercapnia Category: Medical Code(s): J96.90 - Respiratory failure, unspecified, unspecified whether with hypoxia or hypercapnia (5) Elevated brain natriuretic peptide (BNP) level Status: Acute Category: Medical Code(s): R79.89 - Other specified abnormal findings of blood chemistry (6) Cirrhosis Status: Acute Qualifiers: Hepatic cirrhosis type: unspecified hepatic cirrhosis Ascites presence: without ascites Qualified Code(s): K74.60 - Unspecified cirrhosis of liver Category: Medical Code(s): K74.60 - Unspecified cirrhosis of liver (7) Cystocele, midline Status: Acute Category: Medical Code(s): N81.11 - Cystocele, midline (8) Hyperbilirubinemia Status: Acute Category: Medical Code(s): E80.6 - Other disorders of bilirubin metabolism (9) PAULSON (nonalcoholic steatohepatitis) Status: Acute Category: Medical Code(s): K75.81 - Nonalcoholic steatohepatitis (PAULSON) (10) Dilated cardiomyopathy Status: Chronic Category: Medical Code(s): I42.0 - Dilated cardiomyopathy (11) Hypothyroidism Status: Chronic Qualifiers: Hypothyroidism type: acquired Qualified Code(s): E03.9 - Hypothyroidism, unspecified Category: Medical Code(s): E03.9 - Hypothyroidism, unspecified (12) Type 2 diabetes mellitus Status: Chronic Qualifiers: Diabetes mellitus care home insulin use: unspecified manager terminal insulin use status Diabetes mellitus complication status: with other specified complication Qualified Code(s): E11.69 - Type 2 diabetes mellitus with other specified complication Category: Medical Code(s): E11.9 - Type 2 diabetes mellitus without complications (13) C. difficile colitis Status: Acute Category: Medical Code(s): A04.72 - Enterocolitis due to Clostridium difficile, not specified as recurrent (14) Renal insufficiency Status: Acute Category: Medical Code(s): N28.9 - Disorder of kidney and ureter, unspecified - Assessment and plan all Dx Assessment and Plan for all problems:: #Acute hypoxic respiratory failure: #Hospital-acquired pneumonia: 75-year-old with a prior history of persistent asthma on inhalers and theophyl
--- NOTE | 2021-09-28 15:16 | PC.NURSE ---
Pt has rested in bed quietly all shift thus far. She remains on bipap with O2 sats running in the upper 80's-low 90's. HR has been in the 110's and paced on telemetry. Her reza is to bedside draining straw colored urine. Approx 200 mls of urine out so far. Family is currently at bedside and updated on poc.
[2021-09-28 15:37] LABS: Creatinine,Urine Random 95 mg/dL (Not Estab.)
[2021-09-28 16:10] LABS: POC Glucose,Bedside 127 (70-110)
[2021-09-29] VITALS (18 sets, daily range): BP systolic 97–125; BP diastolic 44–76; PULSE 93–120; RESP 20–29; TEMP 36.6–37.5; O2SAT 92–99; BMI 25.2
[2021-09-29 02:58] LABS: POC Glucose,Bedside 106 (70-110)
--- NOTE | 2021-09-29 04:53 | PC.NURSE ---
during nursing assessment rounds, pt was noted to be more lethargic and not responding to verbal cues, or pain, dr. miller paged at this time.
--- NOTE | 2021-09-29 05:17 | PC.NURSE ---
dr miller has not returned paged call, another page was sent out. dr miller did return call and spoke with him about patients functional decline, informed dr miller of pt being non responsive to painful stimuli at this time, and has become severely lethargic over the last couple of hours, informed him of run of v tach at aprox [id number] that was noted, V/s given as 106/68, hr 107, rr 23 and on bipap at 100%. no new orders were given or recieved from dr miller at this time.
[2021-09-29 06:18] LABS: MANUAL DIFFERENTIAL MANUAL DIFFERENTIAL (MANUAL DIFF)
[2021-09-29 06:32] LABS: Basophils # 0.1 K/mm3 (0-0.2); Basophils % 0.5 % (0.1-2.0); Eosinophils # 1.1 K/mm3 (0.0-0.4); Eosinophils % 3.9 % (0.1-12.0); Lymphocytes # 1.4 K/mm3 (0.7-4.5); Lymphocytes % 4.8 % (10-50); Mean Corpuscular HGB Conc 30.9 g/dL (31.8-35.4); Mean Corpuscular Hemoglobin 29.2 pg (27.0-31.2); Mean Corpuscular Volume 94.7 fl (81-99); Mean Platelet Volume 9.2 fl (7.4-10.4); Monocytes # 1.1 K/mm3 (0.1-1.0); Monocytes % 3.9 % (1.7-9.3); Neutrophils # 25.2 K/mm3 (1.8-7.8); Platelet Count 293 K/mm3 (142-424); Red Blood Count 4.12 M/mm3 (4.20-5.40); Red Cell Distribution Width 16.7 % (11.5-17.5)
[2021-09-29 06:56] LABS: Anion Gap 12.4 mEq/L (5-15); Blood Urea Nitrogen 65 mg/dl (7-17); Calcium 8.2 mg/dl (8.4-10.2); Carbon Dioxide 22 mmol/L (22.0-30.0); Chloride 114 mmol/L (98-107); Creatinine Clearance Estimated 22 mL/min (50-200); Estimated Glomerular Filt Rate 22 ml/min (>60); GFR (African American) 26 ML/MIN (>60); Glucose 99 mg/dl (74-100); Potassium 4.4 mmoL/L (3.5-5.1); Sodium 144 mmol/L (136-145)
[2021-09-29 07:48] LABS: Eosinophils % 4 % (0-3); Lymphocytes % 7 % (10-50); Monocytes % 5 % (2-9); Neutrophils % 84 % (42-76); Nucleated Red Blood Cells 1; Total Cells Counted 100
[2021-09-29 07:49] LABS: Platelet Estimate Normal
[2021-09-29 07:53] LABS: Anisocytosis 1+; Hypochromasia 1+
[2021-09-29 07:54] LABS: Burr Cells 1+
--- NOTE | 2021-09-29 08:06 | XR_ITS ---
FINAL REPORT CLINICAL HISTORY: f/u pneumonia FINDINGS: SINGLE VIEW CHEST The heart is normal in size. The mediastinum is unremarkable. Left subclavian ICD is present. There are bilateral pulmonary opacities, may represent edema or pneumonia. There is no pneumothorax. IMPRESSION: Edema versus pneumonia. Reviewed, Interpreted and Dictated by Jan Waller III, MD Transcribed by Olivia Sprague Authenticated by Jan Waller III, MD on 09/29/2021 09:46:48 AM [facility]
--- NOTE | 2021-09-29 08:54 | HMH.ACPN2 ---
<Mamie Telles - Last Filed: 09/29/21 08:54> Internal Medicine - PN: Subj *Date: 09/29/21 *Time: 08:54 Interval history: Patient's family states she has been nonresponsive. Her respiratory status appears to be worsening. Exam Vital signs and Labs for Last 24 Hours: Temp Pulse Resp BP Pulse Ox 99.2 F 115 H 25 H 106/62 L 97 09/29/21 02:00 09/29/21 08:46 09/29/21 06:00 09/29/21 06:00 09/29/21 06:00 Laboratory Results - last 24 hr 09/28/21 11:42: POC Glucose 128 H 09/28/21 15:00: Urine Creatinine 95 09/28/21 16:01: POC Glucose 127 H 09/28/21 21:26: POC Glucose 106 09/29/21 05:28: WBC 29.0 H*, RBC 4.12 L, Hgb 12.0 L, Hct 39.0, MCV 94.7, MCH 29.2, MCHC 30.9 L, RDW 16.7, Plt Count 293 D, MPV 9.2, Neut % (Auto) 87.0 H, Lymph % (Auto) 4.8 L, [place] % (Auto) 3.9, Eos % (Auto) 3.9, Baso % (Auto) 0.5, Neut # (Auto) 25.2 H, Lymph # (Auto) 1.4, [place] # (Auto) 1.1 H, Eos # (Auto) 1.1 H, Baso # (Auto) 0.1, Total Counted 100, Neutrophils % (Manual) 84 H, Lymphocytes % (Manual) 7 L, Monocytes % (Manual) 5, Eosinophils % (Manual) 4 H, Nucleated RBCs 1, Platelet Estimate Normal, Hypochromasia 1+, Anisocytosis 1+, [place] Cells 1+ 09/29/21 05:28: Sodium 144, Potassium 4.4, Chloride 114 H, Carbon Dioxide 22, Anion Gap 12.4, BUN 65 H, Creatinine 2.20 H D, Estimated Creat Clear 22, Estimated GFR 22 L, Est GFR ( Amer) 26 L D, Glucose 99 D, Calcium 8.2 L I & O for Last 24 hours: Intake & Output 01/07/0809/27/21 09/28/21 09/29/21 11:59 11:59 11:59 11:59 Intake Total 963 / 963 990 / 990 1050 / 1050 150 / 150 Output Total 950 / 950 1000 / 1000 680 / 680 450 / 450 Balance -10 / -10 370 / 370 -300 / -300 Weight 136 lb 4.8 oz 136 lb 9 oz 140 lb 8 oz 137 lb 1.617 oz Microbiology Reports for the Last 24 Hours: Microbiology 09/28/21 13:10 Sputum - Expectorated Sputum Gram Stain - Final 09/25/21 11:50 Sputum - Expectorated Sputum Gram Stain - Final 09/25/21 11:50 Sputum - Expectorated Sputum Sputum Culture - Preliminary - Constitutional Comments: not responding - *Routine Respiratory Exam Present: decreased breath sounds, rhonchi, wheezes Comments: BIPAP in place - *Routine Cardiovascular Exam Present: tachycardia - *Routine Abdominal Exam Present: soft, normoactive bowel sounds. Absent: tenderness - *Routine Extremities Exam Absent: cyanosis, clubbing, edema - *Routine Skin Exam Present: warm. Absent: rash - *Routine Neurological Exam Not responding Assessment and Plan (1) Sepsis Status: Acute Category: Medical Code(s): A41.9 - Sepsis, unspecified organism (2) Bilateral pneumonia Status: Acute Qualifiers: Pneumonia type: due to unspecified organism Lung location: unspecified part of lung Qualified Code(s): J18.9 - Pneumonia, unspecified organism Category: Medical Code(s): J18.9 - Pneumonia, unspecified organism (3) CHF (congestive heart failure) Status: Acute Qualifiers: Heart failure type: unspecified Heart failure chronicity: acute on chronic Qualified Code(s): I50.9 - Heart failure, unspecified Category: Medical Code(s): I50.9 - Heart failure, unspecified (4) Respiratory failure Status: Acute Qualifiers: Chronicity: acute on chronic Respiratory failure complication: hypoxia and hypercapnia Qualified Code(s): J96.21 - Acute and chronic respiratory failure with hypoxia; J96.22 - Acute and chronic respiratory failure with hypercapnia Category: Medical Code(s): J96.90 - Respiratory failure, unspecified, unspecified whether with hypoxia or hypercapnia (5) Elevated brain natriuretic peptide (BNP) level Status: Acute Category: Medical Code(s): R79.89 - Other specified abnormal findings of blood chemistry (6) Cirrhosis Status: Acute Qualifiers: Hepatic cirrhosis type: unspecified hepatic cirrhosis Ascites presence: without ascites Qualified Code(s): K74.60 - Unspecified cirrhosis of liver Ca
[2021-09-29 09:13] LABS: ABG HCO3 17.7 mmhg (22.0-26.0); ABG Oxygen Saturation 99 % (90-100); ABG PO2 221.1 mmhg (80-100); ABG TCO2 19.5 mmhg (23-27)
[2021-09-29 09:33] LABS: ABG PCO2 59.2 mmhg (35.0-45.0); ABG PH 7.09 mmol/L (7.35-7.45); Allen's Test Patient Unable; Oxygen 90 %; Pressure Support 16/10; Vent Rate 20
--- NOTE | 2021-09-29 09:34 | HMH.PULMPN ---
Internal Medicine - PN: Subj *Date: 09/29/21 *Time: 11:51 Interval history: No acute respiratory events overnight. Patient clinical status continued to worsen. Exam - Constitutional Constitutional:: Absent: no acute distress, comfortable - HENMT Exam HENMT: Present: normocephalic - Eye Exam Eyes:: Absent: normal appearance both eyes and related structures - Neck Exam Neck:: Absent: normal visual inspection - Respiratory Exam Respiratory:: Present: respiratory distress, rhonchi, wheezing. Absent: able to speak in complete sentences - Cardiovascular Exam Cardiac:: Present: S1, S2 - GI Exam GI:: Present: soft - Skin Exam Skin: Present: warm - Neurological Exam Neurological: Absent: alert, awake, normal cognition, oriented X3 - Extremities Exam Extremities: Present: no cyanosis, no clubbing, clubbing Assessment and Plan (1) Sepsis Status: Acute Category: Medical Code(s): A41.9 - Sepsis, unspecified organism (2) Bilateral pneumonia Status: Acute Qualifiers: Pneumonia type: due to unspecified organism Lung location: unspecified part of lung Qualified Code(s): J18.9 - Pneumonia, unspecified organism Category: Medical Code(s): J18.9 - Pneumonia, unspecified organism (3) CHF (congestive heart failure) Status: Acute Qualifiers: Heart failure type: unspecified Heart failure chronicity: acute on chronic Qualified Code(s): I50.9 - Heart failure, unspecified Category: Medical Code(s): I50.9 - Heart failure, unspecified (4) Respiratory failure Status: Acute Qualifiers: Chronicity: acute on chronic Respiratory failure complication: hypoxia and hypercapnia Qualified Code(s): J96.21 - Acute and chronic respiratory failure with hypoxia; J96.22 - Acute and chronic respiratory failure with hypercapnia Category: Medical Code(s): J96.90 - Respiratory failure, unspecified, unspecified whether with hypoxia or hypercapnia (5) Elevated brain natriuretic peptide (BNP) level Status: Acute Category: Medical Code(s): R79.89 - Other specified abnormal findings of blood chemistry (6) Cirrhosis Status: Acute Qualifiers: Hepatic cirrhosis type: unspecified hepatic cirrhosis Ascites presence: without ascites Qualified Code(s): K74.60 - Unspecified cirrhosis of liver Category: Medical Code(s): K74.60 - Unspecified cirrhosis of liver (7) Cystocele, midline Status: Acute Category: Medical Code(s): N81.11 - Cystocele, midline (8) Hyperbilirubinemia Status: Acute Category: Medical Code(s): E80.6 - Other disorders of bilirubin metabolism (9) PAULSON (nonalcoholic steatohepatitis) Status: Acute Category: Medical Code(s): K75.81 - Nonalcoholic steatohepatitis (PAULSON) (10) Dilated cardiomyopathy Status: Chronic Category: Medical Code(s): I42.0 - Dilated cardiomyopathy (11) Hypothyroidism Status: Chronic Qualifiers: Hypothyroidism type: acquired Qualified Code(s): E03.9 - Hypothyroidism, unspecified Category: Medical Code(s): E03.9 - Hypothyroidism, unspecified (12) Type 2 diabetes mellitus Status: Chronic Qualifiers: Diabetes mellitus storage specialist insulin use: unspecified storage specialist insulin use status Diabetes mellitus complication status: with other specified complication Qualified Code(s): E11.69 - Type 2 diabetes mellitus with other specified complication Category: Medical Code(s): E11.9 - Type 2 diabetes mellitus without complications (13) C. difficile colitis Status: Acute Category: Medical Code(s): A04.72 - Enterocolitis due to Clostridium difficile, not specified as recurrent (14) Renal insufficiency Status: Acute Category: Medical Code(s): N28.9 - Disorder of kidney and ureter, unspecified - Assessment and plan all Dx Assessment and Plan for all problems:: #Acute hypoxic respiratory failure: #Hospital-acquired pneumonia: 75-year-old with a prior history of persist
--- NOTE | 2021-09-29 09:51 | DIET.NUTRFU ---
Patient continues to be NPO, having to wear BiPap ATC. IVF started today, previously completed on 09/27. Kidney fxn continues to decline with BUN 65H (54) and Cr 2.2 (1.8), provider concerned about starting enteral nutrition based on kidney fxn and unsure of family wishes. He will continue to review and consult RD as needed. Patient continues on multiple ABT for respiratory failure and C-diff. Chest X-ray indicated metabolic acidosis with hypoxic respiratory failure. Family is at bedside for most of day
[2021-09-29 10:16] LABS: Lactic Acid 2.1 mmol/L (0.7-2.1)
--- NOTE | 2021-09-29 10:22 | HMH.PNCARD ---
Subjective Date: 09/29/21 Time: 10:22 Principal diagnosis: Pneumonia, Cardiomyopathy, AICD Interval history: 75 yo WF in bed. Unresponsive. ABG results noted with pH of 7.09 Telemetry shows sinus with V. pacing in the 110-115 bpm range. Son and [id number] in room. Exam Vital signs and Labs for Last 24 Hours: Temp Pulse Resp BP Pulse Ox 98.5 F 115 H 25 H 106/62 L 97 09/29/21 08:00 09/29/21 08:46 09/29/21 06:00 09/29/21 06:00 09/29/21 08:00 Laboratory Results - last 24 hr 09/28/21 11:42: POC Glucose 128 H 09/28/21 15:00: Urine Creatinine 95 09/28/21 16:01: POC Glucose 127 H 09/28/21 21:26: POC Glucose 106 09/29/21 05:28: WBC 29.0 H*, RBC 4.12 L, Hgb 12.0 L, Hct 39.0, MCV 94.7, MCH 29.2, MCHC 30.9 L, RDW 16.7, Plt Count 293 D, MPV 9.2, Neut % (Auto) 87.0 H, Lymph % (Auto) 4.8 L, [place] % (Auto) 3.9, Eos % (Auto) 3.9, Baso % (Auto) 0.5, Neut # (Auto) 25.2 H, Lymph # (Auto) 1.4, [place] # (Auto) 1.1 H, Eos # (Auto) 1.1 H, Baso # (Auto) 0.1, Total Counted 100, Neutrophils % (Manual) 84 H, Lymphocytes % (Manual) 7 L, Monocytes % (Manual) 5, Eosinophils % (Manual) 4 H, Nucleated RBCs 1, Platelet Estimate Normal, Hypochromasia 1+, Anisocytosis 1+, [place] Cells 1+ 09/29/21 05:28: Sodium 144, Potassium 4.4, Chloride 114 H, Carbon Dioxide 22, Anion Gap 12.4, BUN 65 H, Creatinine 2.20 H D, Estimated Creat Clear 22, Estimated GFR 22 L, Est GFR ( Amer) 26 L D, Glucose 99 D, Calcium 8.2 L 09/29/21 08:07: O2 % 90, ABG pH 7.09 L*, ABG pCO2 59.2 H, ABG pO2 221.1 H, ABG HCO3 17.7 L, ABG Total CO2 19.5 L, ABG O2 Saturation 99, ABG Base Excess -12.0 L, Mathew Test Patient unable, Vent Rate 20 09/29/21 09:52: Lactate 2.1 I & O for Last 24 hours: Intake & Output 09/26/21 09/27/21 09/28/21 09/29/21 11:59 11:59 11:59 11:59 Intake Total 963 / 963 990 / 990 1050 / 1050 150 / 150 Output Total 950 / 950 1000 / 1000 680 / 680 450 / 450 Balance 10 / 370 / 370 -300 / -300 Weight 136 lb 4.8 oz 136 lb 9 oz 140 lb 8 oz 137 lb 1.617 oz Microbiology Reports for the Last 24 Hours: Microbiology 09/25/21 11:50 Sputum - Expectorated Sputum Gram Stain - Final 09/25/21 11:50 Sputum - Expectorated Sputum Sputum Culture - Preliminary 09/27/21 12:56 Nose - Nasal MRSA Culture - Final Negative 09/28/21 13:10 Sputum - Expectorated Sputum Gram Stain - Final - Constitutional somnolent Comments: BiPAP in place. - *Routine Respiratory Exam Present: rhonchi - *Routine Cardiovascular Exam Present: tachycardia Progress Note: A&P (1) Sepsis Status: Acute (2) Bilateral pneumonia Status: Acute (3) CHF (congestive heart failure) Status: Acute (4) Respiratory failure Status: Acute (5) Elevated brain natriuretic peptide (BNP) level Status: Acute (6) Cirrhosis Status: Acute (7) Cystocele, midline Status: Acute (8) Hyperbilirubinemia Status: Acute (9) PAULSON (nonalcoholic steatohepatitis) Status: Acute (10) Dilated cardiomyopathy Status: Chronic (11) Hypothyroidism Status: Chronic (12) Type 2 diabetes mellitus Status: Chronic (13) C. difficile colitis Status: Acute (14) Renal insufficiency Status: Acute Assessment and Plan for All Diagnoses:: 1. Sepsis, bilateral pneumonia, respiratory distress, metabolic acidosis, on BiPAP. On Vancomycin and piperacillin/tazobactam. Per PCP and Pulmonary. 2. Sinus tach related to #1, esmolol gtt stopped due to hypotension. BP currently stable. Digoxin restarted. 3. Systolic CHF, Cardiomyopathy with EF 25% with BiV AICD (interrogated this admission with no arrhythmias noted and battery life of 1.9 yrs left). Cardiac meds on hold due to hypotension. Use diuretics cautiously due to renal insufficiency and hypotension risk. 4. C. diff colitis, on metronidazole. 5. PAULSON 6. DM, type 2, on insulin 7. Hypothyroidism, on replacement. 8. Renal insufficiency, stage 3, ac
--- NOTE | 2021-09-29 10:48 | XR_ITS ---
FINAL REPORT CLINICAL HISTORY: Patient decline nurse states that doctor is concerned of c-diff FINDINGS: A single view of the abdomen was obtained. There is a nonobstructive bowel gas pattern. There are no abnormally dilated loops of small bowel. There is a moderate amount of retained stool. There are postoperative changes in both hips from arthroplasty. There is levoscoliosis in the lumbar spine. There are degenerative changes of the lumbar spine. IMPRESSION: 1. Nonobstructive bowel gas pattern. 2. Moderate amount of retained stool. Reviewed, Interpreted and Dictated by Jan Waller III, MD Transcribed by Yashira Mcarthur Authenticated by Jan Waller III, MD on 09/29/2021 11:21:27 AM [facility]
[2021-09-29 11:47] LABS: POC Glucose,Bedside 87 (70-110)
[2021-09-29 11:47] LABS: POC Glucose,Bedside 98 (70-110)
[2021-09-29 13:58] LABS: Reflex Lactic Add Lactic Reflex
--- NOTE | 2021-09-29 14:01 | PC.NURSE ---
Addendum entered by Pauline Aguilar RN 09/29/21 18:36: ADDRESSED CODE STATUS WITH PT'S FAMILY THIS EVENING AND FAMILY HAS DECIDED TO CHANGE PT'S CODE STATUS TO DNI. Original Note: PT IS RESTING IN BED WITH FAMILY IN ROOM. PT HAS BEEN UNRESPONSIVE T/O THE SHIFT. TURNED AND REPOSITIONED IN BED. PUPILS ON ASSESSMENT THIS AFTERNOON WERE UNEQUAL/SLUGGISH. AT BEDSIDE. LUNG SOUNDS DIMINISHED WITH SCATTERED RHONCHI. ABDOMEN SOFT WITH ACTIVE BOWEL SOUNDS. EDEMA NOTED TO BLE. 2+ EDEMA NOTED TO LUE. S.TACH ON THE MONITOR. O2 SATURATION HAS MAINTAINED 90-95% ON BIPAP WITH 60% FIO2. LAST BP 101/44. HR 109. R 24. T 99.1. REDNESS NOTED TO THE BUTTOCKS/COCCYX. ORAL CARE PROVIDED. WILL CONTINUE TO MONITOR.
[2021-09-29 15:10] LABS: Lactic Acid Follow Up (RFLX 1) 2.4 mmol/L (0.7-2.1)
[2021-09-29 16:20] LABS: Reflex Lactic (2 hrs) Add Lactic Reflex
[2021-09-29 17:07] LABS: Lactic Acid Follow up (RFLX 2) 2.1 mmol/L (0.7-2.1)
--- NOTE | 2021-09-29 18:50 | PC.WOUNDNOTE ---
REDNESS NOTED TO COCCYX/BUTTOCKS
[2021-09-29 20:34] LABS: POC Glucose,Bedside 64 (70-110)
[2021-09-30] VITALS (13 sets, daily range): BP systolic 107–126; BP diastolic 47–65; PULSE 75–103; RESP 20–28; TEMP 36.2–36.4; O2SAT 85–97; BMI 25.4
[2021-09-30 02:17] LABS: POC Glucose,Bedside 76 (70-110)
--- NOTE | 2021-09-30 04:51 | PC.NURSE ---
pt has remained unresponsive this shift, has been turned Q2, has remained on bipap with O2 sats 94-99%, reza remains in place, 300 mL out so far this shift, pupils remain unequal and sluggish
[2021-09-30 06:24] LABS: MANUAL DIFFERENTIAL MANUAL DIFFERENTIAL (MANUAL DIFF)
[2021-09-30 06:41] LABS: Basophils # 0.1 K/mm3 (0-0.2); Basophils % 0.5 % (0.1-2.0); Eosinophils # 1.2 K/mm3 (0.0-0.4); Eosinophils % 4.6 % (0.1-12.0); Hematocrit 36.3 % (37.0-47.0); Hemoglobin 11.6 g/dL (12.2-16.2); Lymphocytes % 4.1 % (10-50); Mean Corpuscular HGB Conc 31.9 g/dL (31.8-35.4); Mean Corpuscular Hemoglobin 30.2 pg (27.0-31.2); Mean Corpuscular Volume 94.6 fl (81-99); Mean Platelet Volume 9.4 fl (7.4-10.4); Monocytes # 0.7 K/mm3 (0.1-1.0); Monocytes % 2.9 % (1.7-9.3); Neutrophils # 22.5 K/mm3 (1.8-7.8); Neutrophils % 87.9 % (37.0-80.0); Platelet Count 141 K/mm3 (142-424); Red Blood Count 3.83 M/mm3 (4.20-5.40); Red Cell Distribution Width 16.9 % (11.5-17.5); White Blood Count 25.6 K/mm3 (4.8-10.8)
[2021-09-30 07:05] LABS: POC Glucose,Bedside 78 (70-110)
[2021-09-30 07:56] LABS: Vancomycin,Trough 20.4 ug/mL (5.0-10.0)
--- NOTE | 2021-09-30 07:57 | PC.NURSE ---
0755-Critical vanc trough reported. Verified pt name and room number. 0757- Spoke to Yuniel Randolph PharmD regarding vanc trough. Hold 0700 dose at this time, pharmacy will make adjustments
[2021-09-30 08:05] LABS: Eosinophils % 4 % (0-3); Lymphocytes % 8 % (10-50); Monocytes % 2 % (2-9); Neutrophils % 83 % (42-76); Nucleated Red Blood Cells 1; Total Cells Counted 100
[2021-09-30 08:06] LABS: Anisocytosis 1+; Burr Cells 1+; Platelet Estimate Normal
[2021-09-30 08:31] LABS: Anion Gap 17.2 mEq/L (5-15); Calcium 8.2 mg/dl (8.4-10.2); Carbon Dioxide 14 mmol/L (22.0-30.0); Chloride 125 mmol/L (98-107); Creatinine Clearance Estimated 17 mL/min (50-200); Estimated Glomerular Filt Rate 16 ml/min (>60); GFR (African American) 19 ML/MIN (>60); Glucose 76 mg/dl (74-100); Potassium 5.2 mmoL/L (3.5-5.1)
--- NOTE | 2021-09-30 08:56 | HMH.ACPN2 ---
<Mamie Telles - Last Filed: 09/30/21 08:56> Internal Medicine - PN: Subj *Date: 09/30/21 *Time: 08:56 Interval history: Patient does open her eyes this morning and try to talk. KUB from yesterday showed only some retained stool. She remains on BiPAP. Exam Vital signs and Labs for Last 24 Hours: Temp Pulse Resp BP Pulse Ox 97.5 F L 98 H 26 H 107/56 L 95 09/30/21 08:00 09/30/21 08:46 09/30/21 06:00 09/30/21 06:00 09/30/21 06:28 Laboratory Results - last 24 hr 09/29/21 06:24: POC Glucose 98 09/29/21 08:07: O2 % 90, ABG pH 7.09 L*, ABG pCO2 59.2 H, ABG pO2 221.1 H, ABG HCO3 17.7 L, ABG Total CO2 19.5 L, ABG O2 Saturation 99, ABG Base Excess -12.0 L, Mathew Test Patient unable, Vent Rate 20 09/29/21 09:52: Lactate 2.1 09/29/21 11:40: POC Glucose 87 09/29/21 14:15: Lactate 2.4 H 09/29/21 16:42: Lactate 2.1 09/29/21 20:15: POC Glucose 64 L 09/30/21 00:21: POC Glucose 76 09/30/21 05:45: POC Glucose 78 09/30/21 06:15: Vancomycin Trough 20.4 H 09/30/21 06:15: WBC 25.6 H*, RBC 3.83 L, Hgb 11.6 L, Hct 36.3 L, MCV 94.6, MCH 30.2, MCHC 31.9, RDW 16.9, Plt Count 141 L D, MPV 9.4, Neut % (Auto) 87.9 H, Lymph % (Auto) 4.1 L, [place] % (Auto) 2.9, Eos % (Auto) 4.6, Baso % (Auto) 0.5, Neut # (Auto) 22.5 H, Lymph # (Auto) 1.0, [place] # (Auto) 0.7, Eos # (Auto) 1.2 H, Baso # (Auto) 0.1, Total Counted 100, Neutrophils % (Manual) 83 H, Band Neutrophils % 3.0, Lymphocytes % (Manual) 8 L, Monocytes % (Manual) 2, Eosinophils % (Manual) 4 H, Nucleated RBCs 1, Platelet Estimate Normal, Anisocytosis 1+, [place] Cells 1+ I & O for Last 24 hours: Intake & Output 09/27/21 09/28/21 09/29/21 09/30/21 11:59 11:59 11:59 11:59 Intake Total 990 / 990 1050 / 1050 150 / 150 1344 / 1344 Output Total 1000 / 1000 680 / 680 450 / 450 425 / 425 Balance -10 / -10 370 / 370 -300 / -300 919 / 919 Weight 136 lb 9 oz 140 lb 8 oz 137 lb 1.617 oz 138 lb Microbiology Reports for the Last 24 Hours: Microbiology 09/24/21 18:22 Blood Blood Culture - Final NO GROWTH AFTER 5 DAYS 09/24/21 18:22 Blood Blood Culture - Final NO GROWTH AFTER 5 DAYS 09/25/21 11:50 Sputum - Expectorated Sputum Gram Stain - Final 09/25/21 11:50 Sputum - Expectorated Sputum Sputum Culture - Preliminary 09/27/21 12:56 Nose - Nasal MRSA Culture - Final Negative - Constitutional chronically ill appearing - *Routine Respiratory Exam Present: decreased breath sounds (BiPAP in place) - *Routine Cardiovascular Exam Present: RRR - *Routine Abdominal Exam Present: soft, normoactive bowel sounds. Absent: tenderness - *Routine Extremities Exam Present: edema (Trace bilateral lower extremity). Absent: cyanosis, clubbing - *Routine Skin Exam Present: warm. Absent: rash - *Routine Neurological Exam Awake and trying to speak Assessment and Plan (1) Sepsis Status: Acute Category: Medical Code(s): A41.9 - Sepsis, unspecified organism (2) Bilateral pneumonia Status: Acute Qualifiers: Pneumonia type: due to unspecified organism Lung location: unspecified part of lung Qualified Code(s): J18.9 - Pneumonia, unspecified organism Category: Medical Code(s): J18.9 - Pneumonia, unspecified organism (3) CHF (congestive heart failure) Status: Acute Qualifiers: Heart failure type: unspecified Heart failure chronicity: acute on chronic Qualified Code(s): I50.9 - Heart failure, unspecified Category: Medical Code(s): I50.9 - Heart failure, unspecified (4) Respiratory failure Status: Acute Qualifiers: Chronicity: acute on chronic Respiratory failure complication: hypoxia and hypercapnia Qualified Code(s): J96.21 - Acute and chronic respiratory failure with hypoxia; J96.22 - Acute and chronic respiratory failure with hypercapnia Category: Medical Code(s): J96.90 - Respiratory failure, unspecified, unspecified whether with hypoxi
--- NOTE | 2021-09-30 09:08 | HMH.PHACONS ---
- Pharmacy Consult Date: 09/30/21 Time: 09:08 Referring provider: DR HENLEY Reason for Consult:: VANCOMYCIN DOSING ADJUSTMENT Allergies and ADEs:: Allergies Allergy/AdvReac Type Severity Reaction Status Date / Time aspirin Allergy Severe Difficulty Verified 03/21/21 14:59 Breathing iodine Allergy Severe Difficulty Verified 03/21/21 14:59 Breathing sulfite Allergy Severe Difficulty Verified 03/21/21 14:59 Breathing tolmetin Allergy Severe Difficulty Verified 03/21/21 14:59 Breathing yellow dye Allergy Severe Difficulty Verified 03/21/21 14:59 Breathing cephalexin Allergy Unknown Hives, Verified 03/21/21 14:59 Wheezing shellfish derived Allergy Unknown Difficulty Verified 03/21/21 14:59 Breathing Home Medications:: Home Medications Medication Instructions Recorded Confirmed Type Albuterol Sulfate [Ventolin HFA 1 - 2 puffs IH Q4-6H PRN 01/28/19 09/25/21 History Inhaler] Furosemide [Lasix 40mg tablet] 40 mg PO DAILY 01/28/19 09/25/21 History Insulin Glargine,Hum.rec.anlog 10 unit SQ HS 01/28/19 09/25/21 History [Toujeo Solostar] Levothyroxine Sodium 88 mcg PO DAILY 01/28/19 09/25/21 History [Levothyroxine 88mcg (0.088mg) Tab] Linagliptin [Tradjenta 5mg tablet] 5 mg PO DAILY 01/28/19 09/25/21 History Spironolactone [Spironolactone 25 mg PO DAILY 01/28/19 09/25/21 History 25mg Tablet] Theophylline Anhydrous 200 mg PO TID 01/28/19 09/25/21 History [Theophylline] carvediloL [Carvedilol 6.25mg Tab] 6.25 mg PO BID 01/28/19 09/25/21 History digoxin 125 mcg (0.125 mg) tablet 125 mcg PO DAILY 03/27/19 09/25/21 History glimepiride 4 mg tablet 4 mg PO BID 03/27/19 09/25/21 History acetaminophen 325 mg capsule 325 mg PO QIDP PRN 12/16/20 09/25/21 History ibuprofen 600 mg tablet 600 mg PO Q8HP PRN 12/16/20 09/25/21 History Insulin Lispro [Humalog] 6 unit SQ BID 03/18/21 09/25/21 History guaiFENesin [Mucinex 600mg tablet] 600 mg PO BID 03/18/21 09/25/21 History predniSONE [Deltasone 1mg tablet] 1 mg PO DAILY 03/18/21 09/25/21 History nitrofurantoin macrocrystaL 50 mg PO DAILY 09/21/21 09/25/21 History [Nitrofurantoin] Cefdinir [Omnicef 300mg Capsule] 300 mg PO BID 09/25/21 09/25/21 History Ipratropium/Albuterol Sulfate 3 ml IH TID 09/25/21 09/25/21 History [Duoneb 3mL neb] Height: 1.57 m Weight: 62.596 kg Laboratory Results:: Laboratory Results - last 24 hr 09/29/21 06:24: POC Glucose 98 09/29/21 08:07: O2 % 90, ABG pH 7.09 L*, ABG pCO2 59.2 H, ABG pO2 221.1 H, ABG HCO3 17.7 L, ABG Total CO2 19.5 L, ABG O2 Saturation 99, ABG Base Excess -12.0 L, Mathew Test Patient unable, Vent Rate 20 09/29/21 09:52: Lactate 2.1 09/29/21 11:40: POC Glucose 87 09/29/21 14:15: Lactate 2.4 H 09/29/21 16:42: Lactate 2.1 09/29/21 20:15: POC Glucose 64 L 09/30/21 00:21: POC Glucose 76 09/30/21 05:45: POC Glucose 78 09/30/21 06:15: Vancomycin Trough 20.4 H 09/30/21 06:15: WBC 25.6 H*, RBC 3.83 L, Hgb 11.6 L, Hct 36.3 L, MCV 94.6, MCH 30.2, MCHC 31.9, RDW 16.9, Plt Count 141 L D, MPV 9.4, Neut % (Auto) 87.9 H, Lymph % (Auto) 4.1 L, [place] % (Auto) 2.9, Eos % (Auto) 4.6, Baso % (Auto) 0.5, Neut # (Auto) 22.5 H, Lymph # (Auto) 1.0, [place] # (Auto) 0.7, Eos # (Auto) 1.2 H, Baso # (Auto) 0.1, Total Counted 100, Neutrophils % (Manual) 83 H, Band Neutrophils % 3.0, Lymphocytes % (Manual) 8 L, Monocytes % (Manual) 2, Eosinophils % (Manual) 4 H, Nucleated RBCs 1, Platelet Estimate Normal, Anisocytosis 1+, [place] Cells 1+ Medical History: Reports:: Asthma, Atherosclerotic Heart Disease, Cardiomyopathy, Congestive Heart Failure, Depression, Diabetes Mellitus Type 2, Gastroesophageal Reflux Disease(GERD), Hyperlipidemia, Hypertension, Internal Pacemaker, Lung Disease, Supraventricular Tachycardia, Urinary Tract Infection Denies:: Cancer, Diabetes Mellitus Type 1, MRSA, Palpitations, Seizures Assessment and Plan (1) Sepsis Status: Acute Category: Medical Code(s): A41.9 - Sepsis, unspecified orga
[2021-09-30 10:06] LABS: Blood Urea Nitrogen 84 mg/dl (7-17); Sodium 151 mmol/L (136-145)
--- NOTE | 2021-09-30 10:13 | HMH.ACPN2 ---
Internal Medicine - PN: Subj *Date: 09/30/21 *Time: 10:13 Exam Vital signs and Labs for Last 24 Hours: Temp Pulse Resp BP Pulse Ox 97.5 F L 98 H 26 H 107/56 L 95 09/30/21 08:00 09/30/21 08:46 09/30/21 06:00 09/30/21 06:00 09/30/21 06:28 Laboratory Results - last 24 hr 09/29/21 06:24: POC Glucose 98 09/29/21 09:52: Lactate 2.1 09/29/21 11:40: POC Glucose 87 09/29/21 14:15: Lactate 2.4 H 09/29/21 16:42: Lactate 2.1 09/29/21 20:15: POC Glucose 64 L 09/30/21 00:21: POC Glucose 76 09/30/21 05:45: POC Glucose 78 09/30/21 06:15: Vancomycin Trough 20.4 H 09/30/21 06:15: WBC 25.6 H*, RBC 3.83 L, Hgb 11.6 L, Hct 36.3 L, MCV 94.6, MCH 30.2, MCHC 31.9, RDW 16.9, Plt Count 141 L D, MPV 9.4, Neut % (Auto) 87.9 H, Lymph % (Auto) 4.1 L, [place] % (Auto) 2.9, Eos % (Auto) 4.6, Baso % (Auto) 0.5, Neut # (Auto) 22.5 H, Lymph # (Auto) 1.0, [place] # (Auto) 0.7, Eos # (Auto) 1.2 H, Baso # (Auto) 0.1, Total Counted 100, Neutrophils % (Manual) 83 H, Band Neutrophils % 3.0, Lymphocytes % (Manual) 8 L, Monocytes % (Manual) 2, Eosinophils % (Manual) 4 H, Nucleated RBCs 1, Platelet Estimate Normal, Anisocytosis 1+, [place] Cells 1+ 09/30/21 06:15: Sodium 151 H*, Potassium 5.2 H, Chloride 125 H, Carbon Dioxide 14 L, Anion Gap 17.2 H, BUN 84 H D, Creatinine 2.90 H D, Estimated Creat Clear 17, Estimated GFR 16 L*, Est GFR ( Amer) 19 L* D, Glucose 76, Calcium 8.2 L I & O for Last 24 hours: Intake & Output 09/27/21 09/28/21 09/29/21 09/30/21 23:59 23:59 23:59 23:59 Intake Total 1650 / 1650 150 / 250 1344 / 1344 150 / 150 Output Total 1300 / 1480 580 / 580 375 / 375 300 / 300 Balance 350 / 170 -430 / -330 969 / 969 -150 / -150 Weight 61.944 kg 63.73 kg 62.188 kg 62.596 kg Microbiology Reports for the Last 24 Hours: Microbiology 09/24/21 18:22 Blood Blood Culture - Final NO GROWTH AFTER 5 DAYS 09/24/21 18:22 Blood Blood Culture - Final NO GROWTH AFTER 5 DAYS 09/25/21 11:50 Sputum - Expectorated Sputum Gram Stain - Final 09/25/21 11:50 Sputum - Expectorated Sputum Sputum Culture - Preliminary 09/27/21 12:56 Nose - Nasal MRSA Culture - Final Negative Assessment and Plan (1) Sepsis Status: Acute Category: Medical Code(s): A41.9 - Sepsis, unspecified organism (2) Bilateral pneumonia Status: Acute Qualifiers: Pneumonia type: due to unspecified organism Lung location: unspecified part of lung Qualified Code(s): J18.9 - Pneumonia, unspecified organism Category: Medical Code(s): J18.9 - Pneumonia, unspecified organism (3) CHF (congestive heart failure) Status: Acute Qualifiers: Heart failure type: unspecified Heart failure chronicity: acute on chronic Qualified Code(s): I50.9 - Heart failure, unspecified Category: Medical Code(s): I50.9 - Heart failure, unspecified (4) Respiratory failure Status: Acute Qualifiers: Chronicity: acute on chronic Respiratory failure complication: hypoxia and hypercapnia Qualified Code(s): J96.21 - Acute and chronic respiratory failure with hypoxia; J96.22 - Acute and chronic respiratory failure with hypercapnia Category: Medical Code(s): J96.90 - Respiratory failure, unspecified, unspecified whether with hypoxia or hypercapnia (5) Elevated brain natriuretic peptide (BNP) level Status: Acute Category: Medical Code(s): R79.89 - Other specified abnormal findings of blood chemistry (6) Cirrhosis Status: Acute Qualifiers: Hepatic cirrhosis type: unspecified hepatic cirrhosis Ascites presence: without ascites Qualified Code(s): K74.60 - Unspecified cirrhosis of liver Category: Medical Code(s): K74.60 - Unspecified cirrhosis of liver (7) Cystocele, midline Status: Acute Category: Medical Code(s): N81.11 - Cystocele, midline (8) Hyperbilirubinemia Status: Acute Category: Medical Code(s): E80.6 - Other disorders
[2021-09-30 10:16] LABS: Sodium, Urine 144 mmol/L (Not Estab.)
--- NOTE | 2021-09-30 10:43 | DIET.NUTRFU ---
Patient continues NPO, continues to by unresponsive and dependent on Bipap. Reviewed TF options with Dr. Grullon yesterday and was going to continue to monitor kidney fxn and discuss wishes with family. Reviewing labs today: Na 151H, K 5.2H, BUN 84H and Cr 2.9H and glucose 76. She is also noted to have +2 edema and lasix not given since , digoxin continues via injection. She is currently receiving NaCl mixed with ABT tx but not for hydration purposes. Will review labs with nursing expressing concern for hydration and nutrition status.
--- NOTE | 2021-09-30 12:01 | HMH.PULMPN ---
Internal Medicine - PN: Subj *Date: 09/30/21 *Time: 14:31 Interval history: No acute respiratory events overnight. Exam - Constitutional Constitutional:: Absent: no acute distress, comfortable - HENMT Exam HENMT: Present: normocephalic - Eye Exam Eyes:: Present: normal appearance both eyes and related structures - Neck Exam Neck:: Present: normal visual inspection - Respiratory Exam Respiratory:: Present: respiratory distress, rhonchi. Absent: able to speak in complete sentences, wheezing - Cardiovascular Exam Cardiac:: Present: S1, S2 - GI Exam GI:: Present: soft - Skin Exam Skin: Present: warm - Neurological Exam Neurological: Absent: alert, awake, normal cognition - Extremities Exam Extremities: Present: no cyanosis, no clubbing, edema Assessment and Plan (1) Sepsis Status: Acute Category: Medical Code(s): A41.9 - Sepsis, unspecified organism (2) Bilateral pneumonia Status: Acute Qualifiers: Pneumonia type: due to unspecified organism Lung location: unspecified part of lung Qualified Code(s): J18.9 - Pneumonia, unspecified organism Category: Medical Code(s): J18.9 - Pneumonia, unspecified organism (3) CHF (congestive heart failure) Status: Acute Qualifiers: Heart failure type: unspecified Heart failure chronicity: acute on chronic Qualified Code(s): I50.9 - Heart failure, unspecified Category: Medical Code(s): I50.9 - Heart failure, unspecified (4) Respiratory failure Status: Acute Qualifiers: Chronicity: acute on chronic Respiratory failure complication: hypoxia and hypercapnia Qualified Code(s): J96.21 - Acute and chronic respiratory failure with hypoxia; J96.22 - Acute and chronic respiratory failure with hypercapnia Category: Medical Code(s): J96.90 - Respiratory failure, unspecified, unspecified whether with hypoxia or hypercapnia (5) Elevated brain natriuretic peptide (BNP) level Status: Acute Category: Medical Code(s): R79.89 - Other specified abnormal findings of blood chemistry (6) Cirrhosis Status: Acute Qualifiers: Hepatic cirrhosis type: unspecified hepatic cirrhosis Ascites presence: without ascites Qualified Code(s): K74.60 - Unspecified cirrhosis of liver Category: Medical Code(s): K74.60 - Unspecified cirrhosis of liver (7) Cystocele, midline Status: Acute Category: Medical Code(s): N81.11 - Cystocele, midline (8) Hyperbilirubinemia Status: Acute Category: Medical Code(s): E80.6 - Other disorders of bilirubin metabolism (9) PAULSON (nonalcoholic steatohepatitis) Status: Acute Category: Medical Code(s): K75.81 - Nonalcoholic steatohepatitis (PAULSON) (10) Dilated cardiomyopathy Status: Chronic Category: Medical Code(s): I42.0 - Dilated cardiomyopathy (11) Hypothyroidism Status: Chronic Qualifiers: Hypothyroidism type: acquired Qualified Code(s): E03.9 - Hypothyroidism, unspecified Category: Medical Code(s): E03.9 - Hypothyroidism, unspecified (12) Type 2 diabetes mellitus Status: Chronic Qualifiers: Diabetes mellitus long-term insulin use: unspecified exterminator insulin use status Diabetes mellitus complication status: with other specified complication Qualified Code(s): E11.69 - Type 2 diabetes mellitus with other specified complication Category: Medical Code(s): E11.9 - Type 2 diabetes mellitus without complications (13) C. difficile colitis Status: Acute Category: Medical Code(s): A04.72 - Enterocolitis due to Clostridium difficile, not specified as recurrent (14) Renal insufficiency Status: Acute Category: Medical Code(s): N28.9 - Disorder of kidney and ureter, unspecified - Assessment and plan all Dx Assessment and Plan for all problems:: #Acute hypoxic respiratory failure: #Hospital-acquired pneumonia: 75-year-old with a prior history of persistent asthma on inhalers and theophylline recently discharged
--- NOTE | 2021-09-30 13:30 | DIET.NUTRFU ---
Per provider assessment patients mentation slightly improved arousable to painful stimuli though not engaging in clinical conversation. Patient cultures answered BMI. It was discussed with primary team for IV Lasix, if patient is unresponsive may need dialysis support. Continues BiPAP support oral diet continues to not be feasible at this time. Consulted this RD to initiate tube feedings. Reviewing renal fxn: Na 151H, K 5.2, BUN 84, Cr 2.9, glucose 76. Urine output is also low at 300-500ml/day via catheter. She is also noted to have edema and diuretic tx in place. Medications reviewed she is also receiving NaCl with her ABT tx, will keep in mind when calculating flush. Based on current renal fxn and nutritional needs, goal rate to provide 22-25kcal/kg, 0.8-1.0gm protein/kg and 1000-1300ml of fluid/day. Start Pulmocare at 20ml/hr ATC and advance as tolerated to 40ml/hr ATC, goal rate will provide 1380kcal, 57gm protein and 722 free water, then flush with 80ml Q4H= 480ml/day with total fluid of 1200ml/day. Physician to adjust flush based on renal fxn PRN. To start at 20ml/hr she will receiving 841ml/day as total fluid/day plus her medication flush to provide ~1000ml/day. Wt has been fairly stable since admit admit wt 61.9kg and CBW is 62.5kg with 0.6kg difference. Will continue to monitor renal fxn, weights and urine output
[2021-09-30 20:07] LABS: POC Glucose,Bedside 66 (70-110)
--- NOTE | 2021-09-30 20:22 | PC.NURSE ---
RN attempted NG placement x4. Placement was unsuccessful. Patient could no relax to allow for insertion and also could not tolerate being pulled off of biPAP despite utilization of non-rebreather.
[2021-09-30 21:40] LABS: POC Glucose,Bedside 59 (70-110)
[2021-10-01] VITALS (17 sets, daily range): BP systolic 94–117; BP diastolic 42–60; PULSE 80–103; RESP 2–32; TEMP 36.3–36.7; O2SAT 90–97; BMI 25.2
[2021-10-01 00:45] LABS: POC Glucose,Bedside 57 (70-110)
[2021-10-01 01:39] LABS: POC Glucose,Bedside 63 (70-110)
--- NOTE | 2021-10-01 04:18 | PC.NURSE ---
Per Marito from [facility], susanne'd to PB Metronidazole with D2 1/2NS.
--- NOTE | 2021-10-01 04:21 | PC.NURSE ---
[facility] contacted for compatibility at [phone]. Spoke with Marito; susanne'marlena Flagyl 500mg to be piggybacked with D5 1/2NS
[2021-10-01 05:43] LABS: POC Glucose,Bedside 66 (70-110)
[2021-10-01 07:32] LABS: Basophils # 0.1 K/mm3 (0-0.2); Basophils % 0.4 % (0.1-2.0); Eosinophils # 1.1 K/mm3 (0.0-0.4); Eosinophils % 5.6 % (0.1-12.0); Hematocrit 34.6 % (37.0-47.0); Lymphocytes # 0.7 K/mm3 (0.7-4.5); Lymphocytes % 3.5 % (10-50); Mean Corpuscular HGB Conc 31.7 g/dL (31.8-35.4); Mean Corpuscular Hemoglobin 30.6 pg (27.0-31.2); Mean Corpuscular Volume 96.6 fl (81-99); Mean Platelet Volume 9.3 fl (7.4-10.4); Monocytes # 0.6 K/mm3 (0.1-1.0); Monocytes % 2.8 % (1.7-9.3); Neutrophils # 17.5 K/mm3 (1.8-7.8); Neutrophils % 87.7 % (37.0-80.0); Platelet Count 113 K/mm3 (142-424); Red Blood Count 3.58 M/mm3 (4.20-5.40)
[2021-10-01 07:39] LABS: MANUAL DIFFERENTIAL MANUAL DIFFERENTIAL (MANUAL DIFF)
[2021-10-01 07:49] LABS: Chloride 122 mmol/L (98-107); Potassium 3.4 mmoL/L (3.5-5.1)
[2021-10-01 07:51] LABS: Alanine Aminotransferase 67 U/L (12-78); Aspartate Amino Transferase 135 U/L (14-36); Creatinine Clearance Estimated 15 mL/min (50-200); Estimated Glomerular Filt Rate 14 ml/min (>60); GFR (African American) 17 ML/MIN (>60)
[2021-10-01 07:52] LABS: Albumin Level 2.4 g/dl (3.5-5.0); Albumin/Globulin Ratio 0.9 (1.1-1.8); Alkaline Phosphatase 148 U/L (38-126); Anion Gap 13.4 mEq/L (5-15); Bilirubin,Total 1.9 mg/dl (0.2-1.3); Calcium 7.9 mg/dl (8.4-10.2); Carbon Dioxide 20 mmol/L (22.0-30.0); Globulin 2.8 g/dL (1.3-3.2); Glucose 71 mg/dl (74-100); Total Protein,Serum 5.2 g/dl (6.3-8.2)
[2021-10-01 08:21] LABS: Eosinophils % 5 % (0-3); Lymphocytes % 18 % (10-50); Monocytes % 6 % (2-9); Neutrophils % 71 % (42-76); Platelet Estimate Normal; RBC Morphology Normal; Total Cells Counted 100
[2021-10-01 09:35] LABS: Blood Urea Nitrogen 87 mg/dl (7-17); Sodium 152 mmol/L (136-145)
--- NOTE | 2021-10-01 09:51 | PC.NURSE ---
Received critical lab values of sodium 152 and BUN of 87. Made Dr. Curiel aware. NNO at this time.
--- NOTE | 2021-10-01 10:48 | HMH.ACPN ---
Internal Medicine - PN: Subj *Date: 10/01/21 *Time: 10:48 Exam Vital signs and Labs for Last 24 Hours: Temp Pulse Resp BP Pulse Ox 97.6 F 98 H 18 117/56 L 95 10/01/21 04:00 10/01/21 09:56 10/01/21 09:56 10/01/21 09:56 10/01/21 06:32 Laboratory Results - last 24 hr 09/30/21 17:28: POC Glucose 66 L 09/30/21 21:20: POC Glucose 59 L 10/01/21 00:26: POC Glucose 57 L 10/01/21 01:32: POC Glucose 63 L 10/01/21 05:32: POC Glucose 66 L 10/01/21 06:36: WBC 20.0 H, RBC 3.58 L, Hgb 11.0 L, Hct 34.6 L, MCV 96.6, MCH 30.6, MCHC 31.7 L, RDW 17.0, Plt Count 113 L, MPV 9.3, Neut % (Auto) 87.7 H, Lymph % (Auto) 3.5 L, [place] % (Auto) 2.8, Eos % (Auto) 5.6, Baso % (Auto) 0.4, Neut # (Auto) 17.5 H, Lymph # (Auto) 0.7, [place] # (Auto) 0.6, Eos # (Auto) 1.1 H, Baso # (Auto) 0.1, Total Counted 100, Neutrophils % (Manual) 71, Lymphocytes % (Manual) 18, Monocytes % (Manual) 6, Eosinophils % (Manual) 5 H, Platelet Estimate Normal, RBC Morphology Normal 10/01/21 06:36: Sodium 152 H*, Potassium 3.4 L D, Chloride 122 H, Carbon Dioxide 20 L, Anion Gap 13.4, BUN 87 H, Creatinine 3.20 H, Estimated Creat Clear 15, Estimated GFR 14 L*, Est GFR ( Amer) 17 L*, Glucose 71 L, Calcium 7.9 L, Total Bilirubin 1.9 H, AST 135 H, ALT 67, Alkaline Phosphatase 148 H, Total Protein 5.2 L, Albumin 2.4 L, Globulin 2.8, Albumin/Globulin Ratio 0.9 L I & O for Last 24 hours: Intake & Output 0109/29/21 09/30/21 10/01/21 23:59 23:59 23:59 23:59 Intake Total 150 / 250 1344 / 1344 150 / 150 0 / 0 Output Total 580 / 580 375 / 375 300 / 300 250 / 250 Balance -430 / -330 969 / 969 -150 / -150 -250 / -250 Weight 63.73 kg 62.188 kg 62.596 kg 62.142 kg Microbiology Reports for the Last 24 Hours: Microbiology 09/28/21 13:10 Sputum - Expectorated Sputum Gram Stain - Final 09/28/21 13:10 Sputum - Expectorated Sputum Sputum Culture - Final Staphylococcus aureus 09/25/21 11:50 Sputum - Expectorated Sputum Gram Stain - Final 09/25/21 11:50 Sputum - Expectorated Sputum Sputum Culture - Final Normal Respiratory Amanda Assessment and Plan (1) Sepsis Status: Acute Category: Medical Code(s): A41.9 - Sepsis, unspecified organism (2) Bilateral pneumonia Status: Acute Qualifiers: Pneumonia type: due to unspecified organism Lung location: unspecified part of lung Qualified Code(s): J18.9 - Pneumonia, unspecified organism Category: Medical Code(s): J18.9 - Pneumonia, unspecified organism (3) CHF (congestive heart failure) Status: Acute Qualifiers: Heart failure type: unspecified Heart failure chronicity: acute on chronic Qualified Code(s): I50.9 - Heart failure, unspecified Category: Medical Code(s): I50.9 - Heart failure, unspecified (4) Respiratory failure Status: Acute Qualifiers: Chronicity: acute on chronic Respiratory failure complication: hypoxia and hypercapnia Qualified Code(s): J96.21 - Acute and chronic respiratory failure with hypoxia; J96.22 - Acute and chronic respiratory failure with hypercapnia Category: Medical Code(s): J96.90 - Respiratory failure, unspecified, unspecified whether with hypoxia or hypercapnia (5) Elevated brain natriuretic peptide (BNP) level Status: Acute Category: Medical Code(s): R79.89 - Other specified abnormal findings of blood chemistry (6) Cirrhosis Status: Acute Qualifiers: Hepatic cirrhosis type: unspecified hepatic cirrhosis Ascites presence: without ascites Qualified Code(s): K74.60 - Unspecified cirrhosis of liver Category: Medical Code(s): K74.60 - Unspecified cirrhosis of liver (7) Cystocele, midline Status: Acute Category: Medical Code(s): N81.11 - Cystocele, midline (8) Hyperbilirubinemia Status: Acute Category: Medical Code(s): E80.6 - Other disorders of bilirubin metabolism (9) PAULSON (nonalcoholic steatohepatitis) Status: Acute Cat
--- NOTE | 2021-10-01 11:31 | HMH.ACPN2 ---
Internal Medicine - PN: Subj *Date: 10/01/21 *Time: 11:31 Interval history: Several unsuccessful attempts were made to place NG tube yesterday. She was hypoglycemic overnight and started on a low rate of IV D5W. This morning she is somewhat responsive. She will open her eyes to command and seems to answer yes/no questions appropriately. She indicates she is in pain and has received morphine. She continues on BiPAP. Exam Vital signs and Labs for Last 24 Hours: Temp Pulse Resp BP Pulse Ox 97.6 F 100 H 18 117/56 L 95 10/01/21 04:00 10/01/21 11:06 10/01/21 09:56 10/01/21 09:56 10/01/21 06:32 Laboratory Results - last 24 hr 09/30/21 17:28: POC Glucose 66 L 09/30/21 21:20: POC Glucose 59 L 10/01/21 00:26: POC Glucose 57 L 10/01/21 01:32: POC Glucose 63 L 10/01/21 05:32: POC Glucose 66 L 10/01/21 06:36: WBC 20.0 H, RBC 3.58 L, Hgb 11.0 L, Hct 34.6 L, MCV 96.6, MCH 30.6, MCHC 31.7 L, RDW 17.0, Plt Count 113 L, MPV 9.3, Neut % (Auto) 87.7 H, Lymph % (Auto) 3.5 L, [place] % (Auto) 2.8, Eos % (Auto) 5.6, Baso % (Auto) 0.4, Neut # (Auto) 17.5 H, Lymph # (Auto) 0.7, [place] # (Auto) 0.6, Eos # (Auto) 1.1 H, Baso # (Auto) 0.1, Total Counted 100, Neutrophils % (Manual) 71, Lymphocytes % (Manual) 18, Monocytes % (Manual) 6, Eosinophils % (Manual) 5 H, Platelet Estimate Normal, RBC Morphology Normal 10/01/21 06:36: Sodium 152 H*, Potassium 3.4 L D, Chloride 122 H, Carbon Dioxide 20 L, Anion Gap 13.4, BUN 87 H, Creatinine 3.20 H, Estimated Creat Clear 15, Estimated GFR 14 L*, Est GFR ( Amer) 17 L*, Glucose 71 L, Calcium 7.9 L, Total Bilirubin 1.9 H, AST 135 H, ALT 67, Alkaline Phosphatase 148 H, Total Protein 5.2 L, Albumin 2.4 L, Globulin 2.8, Albumin/Globulin Ratio 0.9 L I & O for Last 24 hours: Intake & Output 09/28/21 09/29/21 09/30/21 10/01/21 11:59 11:59 11:59 11:59 Intake Total 1050 / 1050 150 / 150 1344 / 1344 0 / 0 Output Total 680 / 680 450 / 450 425 / 425 250 / 250 Balance 370 / 370 -300 / -300 919 / 919 -250 / -250 Weight 140 lb 8 oz 137 lb 1.617 oz 138 lb 137 lb Microbiology Reports for the Last 24 Hours: Microbiology 09/28/21 13:10 Sputum - Expectorated Sputum Gram Stain - Final 09/28/21 13:10 Sputum - Expectorated Sputum Sputum Culture - Final Staphylococcus aureus 09/25/21 11:50 Sputum - Expectorated Sputum Gram Stain - Final 09/25/21 11:50 Sputum - Expectorated Sputum Sputum Culture - Final Normal Respiratory Amanda Narrative: Color is good. Lungs reveal scattered rhonchi and faint wheezes. Heart is regular. Abdomen is soft and nondistended. Extremities show trace pretibial edema. Urine output minimal Assessment and Plan (1) Sepsis Status: Acute Category: Medical Code(s): A41.9 - Sepsis, unspecified organism (2) Bilateral pneumonia Status: Acute Qualifiers: Pneumonia type: due to unspecified organism Lung location: unspecified part of lung Qualified Code(s): J18.9 - Pneumonia, unspecified organism Category: Medical Code(s): J18.9 - Pneumonia, unspecified organism (3) CHF (congestive heart failure) Status: Acute Qualifiers: Heart failure type: unspecified Heart failure chronicity: acute on chronic Qualified Code(s): I50.9 - Heart failure, unspecified Category: Medical Code(s): I50.9 - Heart failure, unspecified (4) Respiratory failure Status: Acute Qualifiers: Chronicity: acute on chronic Respiratory failure complication: hypoxia and hypercapnia Qualified Code(s): J96.21 - Acute and chronic respiratory failure with hypoxia; J96.22 - Acute and chronic respiratory failure with hypercapnia Category: Medical Code(s): J96.90 - Respiratory failure, unspecified, unspecified whether with hypoxia or hypercapnia (5) Elevated brain natriuretic peptide (BNP) level Status: Acute Category: Medical Code(s): R79.89 - Other specified abnormal findings of blood chemis
--- NOTE | 2021-10-01 18:28 | PC.NURSE ---
Per sons request pt is now DNR. He reports wanting to keep her comfortable.
--- NOTE | 2021-10-01 18:33 | PC.NURSE ---
pt continues to decline. Family @ bedside bipap in place. pt has edema through out her body and is weeping from BUE. reza in place. pt status changed to DNR
[2021-10-01 21:40] LABS: POC Glucose,Bedside 89 (70-110)
[2021-10-01 22:25] LABS: POC Glucose,Bedside 92 (70-110)
[2021-10-01 22:25] LABS: POC Glucose,Bedside 80 (70-110)
[2021-10-02] VITALS (9 sets, daily range): BP systolic 112–120; BP diastolic 49–59; PULSE 70–120; RESP 20–22; TEMP 36.5–36.8; O2SAT 80–97; BMI 25.6
[2021-10-02 05:31] LABS: POC Glucose,Bedside 81 (70-110)
[2021-10-02 07:26] LABS: Anion Gap 13.7 mEq/L (5-15); Calcium 7.9 mg/dl (8.4-10.2); Carbon Dioxide 19 mmol/L (22.0-30.0); Chloride 121 mmol/L (98-107); Creatinine Clearance Estimated 13 mL/min (50-200); Estimated Glomerular Filt Rate 12 ml/min (>60); GFR (African American) 15 ML/MIN (>60); Glucose 90 mg/dl (74-100); Potassium 3.7 mmoL/L (3.5-5.1)
[2021-10-02 07:40] LABS: Blood Urea Nitrogen 96 mg/dl (7-17); Sodium 150 mmol/L (136-145)
[2021-10-02 07:41] LABS: Basophils # 0.1 K/mm3 (0-0.2); Basophils % 0.4 % (0.1-2.0); Eosinophils # 1.3 K/mm3 (0.0-0.4); Eosinophils % 6.3 % (0.1-12.0); Hematocrit 38.7 % (37.0-47.0); Hemoglobin 11.8 g/dL (12.2-16.2); Lymphocytes # 0.8 K/mm3 (0.7-4.5); Lymphocytes % 3.9 % (10-50); Mean Corpuscular HGB Conc 30.6 g/dL (31.8-35.4); Mean Corpuscular Hemoglobin 29.7 pg (27.0-31.2); Mean Platelet Volume 9.3 fl (7.4-10.4); Monocytes # 0.7 K/mm3 (0.1-1.0); Monocytes % 3.3 % (1.7-9.3); Neutrophils % 86.3 % (37.0-80.0); Platelet Count 112 K/mm3 (142-424); Red Blood Count 3.99 M/mm3 (4.20-5.40); White Blood Count 20.8 K/mm3 (4.8-10.8)
[2021-10-02 07:49] LABS: MANUAL DIFFERENTIAL MANUAL DIFFERENTIAL (MANUAL DIFF)
[2021-10-02 08:31] LABS: Eosinophils % 7 % (0-3); Lymphocytes % 6 % (10-50); Monocytes % 3 % (2-9); Neutrophils % 84 % (42-76); Total Cells Counted 100
[2021-10-02 08:34] LABS: Anisocytosis 1+; Burr Cells 1+; Platelet Estimate Slight Decrease
--- NOTE | 2021-10-02 09:37 | HMH.ACPN2 ---
Internal Medicine - PN: Subj *Date: 10/02/21 *Time: 09:42 Interval history: She has continued to decline and is less responsive today. Urine output is decreasing and she is developing anasarca. Family has decided to withdraw treatment and continue palliative care. Exam Vital signs and Labs for Last 24 Hours: Temp Pulse Resp BP Pulse Ox 98.2 F 111 H 20 115/57 L 97 10/02/21 08:00 10/02/21 08:00 10/02/21 08:00 10/02/21 08:00 10/02/21 08:00 Laboratory Results - last 24 hr 10/01/21 10:56: POC Glucose 92 10/01/21 16:40: POC Glucose 80 10/01/21 20:13: POC Glucose 89 10/02/21 05:23: POC Glucose 81 10/02/21 07:08: Sodium 150 H, Potassium 3.7, Chloride 121 H, Carbon Dioxide 19 L, Anion Gap 13.7, BUN 96 H, Creatinine 3.60 H, Estimated Creat Clear 13, Estimated GFR 12 L*, Est GFR ( Amer) 15 L*, Glucose 90, Calcium 7.9 L 10/02/21 07:08: WBC 20.8 H*, RBC 3.99 L, Hgb 11.8 L, Hct 38.7, MCV 97.0, MCH 29.7, MCHC 30.6 L, RDW 17.0, Plt Count 112 L, MPV 9.3, Neut % (Auto) 86.3 H, Lymph % (Auto) 3.9 L, [place] % (Auto) 3.3, Eos % (Auto) 6.3, Baso % (Auto) 0.4, Neut # (Auto) 18.0 H, Lymph # (Auto) 0.8, [place] # (Auto) 0.7, Eos # (Auto) 1.3 H, Baso # (Auto) 0.1, Total Counted 100, Neutrophils % (Manual) 84 H, Lymphocytes % (Manual) 6 L, Monocytes % (Manual) 3, Eosinophils % (Manual) 7 H, Platelet Estimate Slight decrease, Anisocytosis 1+, [place] Cells 1+ I & O for Last 24 hours: Intake & Output 09/29/21 09/30/21 10/01/21 10/02/21 11:59 11:59 11:59 11:59 Intake Total 150 / 150 1344 / 1344 0 / 0 0 / 0 Output Total 450 / 450 425 / 425 250 / 250 125 / 125 Balance -300 / -300 919 / 919 -250 / -250 -125 / -125 Weight 137 lb 1.617 oz 138 lb 137 lb 139 lb 2 oz Microbiology Reports for the Last 24 Hours: Microbiology 09/28/21 13:10 Sputum - Expectorated Sputum Gram Stain - Final 09/28/21 13:10 Sputum - Expectorated Sputum Sputum Culture - Final Staphylococcus aureus 09/25/21 11:50 Sputum - Expectorated Sputum Gram Stain - Final 09/25/21 11:50 Sputum - Expectorated Sputum Sputum Culture - Final Normal Respiratory Amanda Narrative: No meaningful response to commands. Noted with anasarca and is weeping from IV sites in her arms. Assessment and Plan (1) Sepsis Status: Acute Category: Medical Code(s): A41.9 - Sepsis, unspecified organism (2) Bilateral pneumonia Status: Acute Qualifiers: Pneumonia type: due to unspecified organism Lung location: unspecified part of lung Qualified Code(s): J18.9 - Pneumonia, unspecified organism Category: Medical Code(s): J18.9 - Pneumonia, unspecified organism (3) CHF (congestive heart failure) Status: Acute Qualifiers: Heart failure type: unspecified Heart failure chronicity: acute on chronic Qualified Code(s): I50.9 - Heart failure, unspecified Category: Medical Code(s): I50.9 - Heart failure, unspecified (4) Respiratory failure Status: Acute Qualifiers: Chronicity: acute on chronic Respiratory failure complication: hypoxia and hypercapnia Qualified Code(s): J96.21 - Acute and chronic respiratory failure with hypoxia; J96.22 - Acute and chronic respiratory failure with hypercapnia Category: Medical Code(s): J96.90 - Respiratory failure, unspecified, unspecified whether with hypoxia or hypercapnia (5) Elevated brain natriuretic peptide (BNP) level Status: Acute Category: Medical Code(s): R79.89 - Other specified abnormal findings of blood chemistry (6) Cirrhosis Status: Acute Qualifiers: Hepatic cirrhosis type: unspecified hepatic cirrhosis Ascites presence: without ascites Qualified Code(s): K74.60 - Unspecified cirrhosis of liver Category: Medical Code(s): K74.60 - Unspecified cirrhosis of liver (7) Cystocele, midline Status: Acute Category: Medical Code(s): N81.11 - Cystocele, midline (8) Hyperbilirubinemia Status: Acu
--- NOTE | 2021-10-02 10:20 | PC.NURSE ---
RESPIRATORY CARE NOTE: PT TAKEN OFF OF BIPAP @ 1020. PLACED ON 2L NC.
--- NOTE | 2021-10-02 10:21 | PC.NURSE ---
per Family request pt has been taken off of bipap. MD @ bedside and spoke with family regarding confort measures. IV fluids stopped and pt is now on 2lnc. Will continue to monitor
--- NOTE | 2021-10-02 14:43 | PC.NURSE ---
pt is resting comfortable @ this time. Family is at bedside. Dr. Grullon in to check on pt. family refused to have pt turned @ this time. Will continue to monitor
--- NOTE | 2021-10-02 17:32 | PC.NURSE ---
turned pt and changed bedding. pt is starting to have apneic periods.
--- NOTE | 2021-10-02 18:43 | PC.NURSE ---
pt resting in bed. turned and changed sheets again due to weeping.
--- NOTE | 2021-10-02 22:07 | PC.NURSE ---
Family at bedside. Requests not to be turned at this time. Morphine given per MAR. Patient is having agonal episodes of breathing. Family has no needs at this time.
[2021-10-03] VITALS: PULSE 80
--- NOTE | 2021-10-03 01:06 | PC.NURSE ---
Patient linens changed at 0015 and morphine given per NOV. Family voices no needs.
[2021-10-03 03:11] VITALS: BP 61/21; PULSE 73; RESP 8; O2SAT 89
[2021-10-03 04:00] VITALS: PULSE 70
[2021-10-03 08:00] VITALS: BP 54/41; PULSE 60; PULSE 65; RESP 16; TEMP 36.3; O2SAT 86
--- NOTE | 2021-10-03 08:31 | HMH.ACPN2 ---
Internal Medicine - PN: Subj *Date: 10/03/21 *Time: 08:31 Interval history: Family is at bedside. She has had agonal respirations through the night. Exam Vital signs and Labs for Last 24 Hours: Temp Pulse Resp BP Pulse Ox 98.2 F 70 8 L 61/21 L 89 L 10/02/21 08:00 10/03/21 04:00 10/03/21 03:11 10/03/21 03:11 10/03/21 03:11 Laboratory Results - last 24 hr 10/02/21 07:08: Total Counted 100, Neutrophils % (Manual) 84 H, Lymphocytes % (Manual) 6 L, Monocytes % (Manual) 3, Eosinophils % (Manual) 7 H, Platelet Estimate Slight decrease, Anisocytosis 1+, [place] Cells 1+ I & O for Last 24 hours: Intake & Output 09/30/21 10/01/21 10/02/21 10/03/21 11:59 11:59 11:59 11:59 Intake Total 1344 / 1344 0 / 0 0 / 0 Output Total 425 / 425 250 / 250 125 / 125 Balance 919 / 919 -250 / -250 -125 / -125 Weight 138 lb 137 lb 139 lb 2 oz Narrative: Unresponsive. Appears comfortable. Breathing is shallow, irregular. Breath sounds diminished bilaterally. Extremities warm to touch. Assessment and Plan (1) Sepsis Status: Acute Category: Medical Code(s): A41.9 - Sepsis, unspecified organism (2) Bilateral pneumonia Status: Acute Qualifiers: Pneumonia type: due to unspecified organism Lung location: unspecified part of lung Qualified Code(s): J18.9 - Pneumonia, unspecified organism Category: Medical Code(s): J18.9 - Pneumonia, unspecified organism (3) CHF (congestive heart failure) Status: Acute Qualifiers: Heart failure type: unspecified Heart failure chronicity: acute on chronic Qualified Code(s): I50.9 - Heart failure, unspecified Category: Medical Code(s): I50.9 - Heart failure, unspecified (4) Respiratory failure Status: Acute Qualifiers: Chronicity: acute on chronic Respiratory failure complication: hypoxia and hypercapnia Qualified Code(s): J96.21 - Acute and chronic respiratory failure with hypoxia; J96.22 - Acute and chronic respiratory failure with hypercapnia Category: Medical Code(s): J96.90 - Respiratory failure, unspecified, unspecified whether with hypoxia or hypercapnia (5) Elevated brain natriuretic peptide (BNP) level Status: Acute Category: Medical Code(s): R79.89 - Other specified abnormal findings of blood chemistry (6) Cirrhosis Status: Acute Qualifiers: Hepatic cirrhosis type: unspecified hepatic cirrhosis Ascites presence: without ascites Qualified Code(s): K74.60 - Unspecified cirrhosis of liver Category: Medical Code(s): K74.60 - Unspecified cirrhosis of liver (7) Cystocele, midline Status: Acute Category: Medical Code(s): N81.11 - Cystocele, midline (8) Hyperbilirubinemia Status: Acute Category: Medical Code(s): E80.6 - Other disorders of bilirubin metabolism (9) PAULSON (nonalcoholic steatohepatitis) Status: Acute Category: Medical Code(s): K75.81 - Nonalcoholic steatohepatitis (PAULSON) (10) Dilated cardiomyopathy Status: Chronic Category: Medical Code(s): I42.0 - Dilated cardiomyopathy (11) Hypothyroidism Status: Chronic Qualifiers: Hypothyroidism type: acquired Qualified Code(s): E03.9 - Hypothyroidism, unspecified Category: Medical Code(s): E03.9 - Hypothyroidism, unspecified (12) Type 2 diabetes mellitus Status: Chronic Qualifiers: Diabetes mellitus long-term insulin use: unspecified terminal manager insulin use status Diabetes mellitus complication status: with other specified complication Qualified Code(s): E11.69 - Type 2 diabetes mellitus with other specified complication Category: Medical Code(s): E11.9 - Type 2 diabetes mellitus without complications (13) C. difficile colitis Status: Acute Category: Medical Code(s): A04.72 - Enterocolitis due to Clostridium difficile, not specified as recurrent (14) Renal insufficiency Status: Acute Category: Medical Code(s): N28.9 - Disorder of kidney and ureter, unspecified (15
--- NOTE | 2021-10-03 08:56 | HMH.ACPN2 ---
Internal Medicine - PN: Subj *Date: 10/03/21 *Time: 08:56 Exam Vital signs and Labs for Last 24 Hours: Temp Pulse Resp BP Pulse Ox 98.2 F 70 8 L 61/21 L 89 L 10/02/21 08:00 10/03/21 04:00 10/03/21 03:11 10/03/21 03:11 10/03/21 03:11 I & O for Last 24 hours: Intake & Output 09/30/21 10/01/21 10/02/21 10/03/21 23:59 23:59 23:59 23:59 Intake Total 150 / 150 0 / 0 0 / 0 Output Total 300 / 300 375 / 375 Balance -150 / -150 -375 / -375 0 / 0 Weight 62.596 kg 62.142 kg 63.106 kg Assessment and Plan (1) Sepsis Status: Acute Category: Medical Code(s): A41.9 - Sepsis, unspecified organism (2) Bilateral pneumonia Status: Acute Qualifiers: Pneumonia type: due to unspecified organism Lung location: unspecified part of lung Qualified Code(s): J18.9 - Pneumonia, unspecified organism Category: Medical Code(s): J18.9 - Pneumonia, unspecified organism (3) CHF (congestive heart failure) Status: Acute Qualifiers: Heart failure type: unspecified Heart failure chronicity: acute on chronic Qualified Code(s): I50.9 - Heart failure, unspecified Category: Medical Code(s): I50.9 - Heart failure, unspecified (4) Respiratory failure Status: Acute Qualifiers: Chronicity: acute on chronic Respiratory failure complication: hypoxia and hypercapnia Qualified Code(s): J96.21 - Acute and chronic respiratory failure with hypoxia; J96.22 - Acute and chronic respiratory failure with hypercapnia Category: Medical Code(s): J96.90 - Respiratory failure, unspecified, unspecified whether with hypoxia or hypercapnia (5) Elevated brain natriuretic peptide (BNP) level Status: Acute Category: Medical Code(s): R79.89 - Other specified abnormal findings of blood chemistry (6) Cirrhosis Status: Acute Qualifiers: Hepatic cirrhosis type: unspecified hepatic cirrhosis Ascites presence: without ascites Qualified Code(s): K74.60 - Unspecified cirrhosis of liver Category: Medical Code(s): K74.60 - Unspecified cirrhosis of liver (7) Cystocele, midline Status: Acute Category: Medical Code(s): N81.11 - Cystocele, midline (8) Hyperbilirubinemia Status: Acute Category: Medical Code(s): E80.6 - Other disorders of bilirubin metabolism (9) PAULSON (nonalcoholic steatohepatitis) Status: Acute Category: Medical Code(s): K75.81 - Nonalcoholic steatohepatitis (PAULSON) (10) Dilated cardiomyopathy Status: Chronic Category: Medical Code(s): I42.0 - Dilated cardiomyopathy (11) Hypothyroidism Status: Chronic Qualifiers: Hypothyroidism type: acquired Qualified Code(s): E03.9 - Hypothyroidism, unspecified Category: Medical Code(s): E03.9 - Hypothyroidism, unspecified (12) Type 2 diabetes mellitus Status: Chronic Qualifiers: Diabetes mellitus alf insulin use: unspecified alf insulin use status Diabetes mellitus complication status: with other specified complication Qualified Code(s): E11.69 - Type 2 diabetes mellitus with other specified complication Category: Medical Code(s): E11.9 - Type 2 diabetes mellitus without complications (13) C. difficile colitis Status: Acute Category: Medical Code(s): A04.72 - Enterocolitis due to Clostridium difficile, not specified as recurrent (14) Renal insufficiency Status: Acute Category: Medical Code(s): N28.9 - Disorder of kidney and ureter, unspecified (15) HOLLY (acute kidney injury) Status: Acute Category: Medical Code(s): N17.9 - Acute kidney failure, unspecified The patient's infection will respond to the chosen ABx?: Yes (ELECTING COMFORT CARE MEASURES PER NOTE.) Is the patient receiving the right drug, dose, and route?: Yes Could a more targeted ABx be ordered?: No (ELECTING COMFORT CARE MEASURES PER NOTE.)
--- NOTE | 2021-10-03 09:33 | HMH.PULMPN ---
Internal Medicine - PN: Subj *Date: 10/03/21 *Time: 09:33 Assessment and Plan (1) Sepsis Status: Acute Category: Medical Code(s): A41.9 - Sepsis, unspecified organism (2) Bilateral pneumonia Status: Acute Qualifiers: Pneumonia type: due to unspecified organism Lung location: unspecified part of lung Qualified Code(s): J18.9 - Pneumonia, unspecified organism Category: Medical Code(s): J18.9 - Pneumonia, unspecified organism (3) CHF (congestive heart failure) Status: Acute Qualifiers: Heart failure type: unspecified Heart failure chronicity: acute on chronic Qualified Code(s): I50.9 - Heart failure, unspecified Category: Medical Code(s): I50.9 - Heart failure, unspecified (4) Respiratory failure Status: Acute Qualifiers: Chronicity: acute on chronic Respiratory failure complication: hypoxia and hypercapnia Qualified Code(s): J96.21 - Acute and chronic respiratory failure with hypoxia; J96.22 - Acute and chronic respiratory failure with hypercapnia Category: Medical Code(s): J96.90 - Respiratory failure, unspecified, unspecified whether with hypoxia or hypercapnia (5) Elevated brain natriuretic peptide (BNP) level Status: Acute Category: Medical Code(s): R79.89 - Other specified abnormal findings of blood chemistry (6) Cirrhosis Status: Acute Qualifiers: Hepatic cirrhosis type: unspecified hepatic cirrhosis Ascites presence: without ascites Qualified Code(s): K74.60 - Unspecified cirrhosis of liver Category: Medical Code(s): K74.60 - Unspecified cirrhosis of liver (7) Cystocele, midline Status: Acute Category: Medical Code(s): N81.11 - Cystocele, midline (8) Hyperbilirubinemia Status: Acute Category: Medical Code(s): E80.6 - Other disorders of bilirubin metabolism (9) PAULSON (nonalcoholic steatohepatitis) Status: Acute Category: Medical Code(s): K75.81 - Nonalcoholic steatohepatitis (PAULSON) (10) Dilated cardiomyopathy Status: Chronic Category: Medical Code(s): I42.0 - Dilated cardiomyopathy (11) Hypothyroidism Status: Chronic Qualifiers: Hypothyroidism type: acquired Qualified Code(s): E03.9 - Hypothyroidism, unspecified Category: Medical Code(s): E03.9 - Hypothyroidism, unspecified (12) Type 2 diabetes mellitus Status: Chronic Qualifiers: 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 difficile colitis Status: Acute Category: Medical Code(s): A04.72 - Enterocolitis due to Clostridium difficile, not specified as recurrent (14) Renal insufficiency Status: Acute Category: Medical Code(s): N28.9 - Disorder of kidney and ureter, unspecified (15) HOLLY (acute kidney injury) Status: Acute Category: Medical Code(s): N17.9 - Acute kidney failure, unspecified - Assessment and plan all Dx Assessment and Plan for all problems:: #Acute hypoxic respiratory failure: #Hospital-acquired pneumonia: 75-year-old with a prior history of persistent asthma on inhalers and theophylline recently discharged after being treated for pneumonia presents hospital again with worsening leukocytosis, hypotension and worsening respiratory failure including needing BiPAP to maintain her O2 sats WNL and pulmonary was called for further management. ABG on admission showed metabolic acidosis with respiratory compensation. ABG from this morning continue to show metabolic acidosis along with hypoxic respiratory failure. Leukocytosis continue to worsen now at 36. Worsening renal function creatinine at 1.6. Stool C. difficile PCR positive. Flu and COVID-19 PCR negative. Chest x-ray demonstrated bilateral dense patchy
--- NOTE | 2021-10-03 12:26 | P.DN_ITS ---
Pronouncement Note - Date and Time of Date of : 10/03/21 Time of : 12:14 - PCOD Preliminary cause of : Pneumonia - Additional Data Confirmation of : no pulse, no respirations, no heart sounds, pupils fixed and dilated Family: at bedside Attending/PCP notified?: Yes (at bedside) Attending physician: Blane Grullon MD Was code activated?: No Autopsy requested?: No financial examiner notified?: No
--- NOTE | 2021-10-03 12:36 | PC.NURSE ---
Patient at 12:14. asystole noted on monitor. Confirmed by MD KALE
[2021-10-03 15:33] LABS: Fungitell(Beta D-Glucan) Serum 82 pg/mL (<80)
[2021-10-04 17:18] LABS: Legionella pneumophila Urinary Negative (Negative)
--- NOTE | 2021-10-05 08:38 | HMH.DCSUM ---
General - General Admission date:: 09/24/21 <Blane Grullon - 10/30/21 15:03> 09/24/21 <Olivia Marin - 10/05/21 09:33> Discharge date: 10/03/21 (pt ) <Olivia Marin - 10/05/21 09:33> HPI HPI: Ms. Dorman was hospitalized with pneumonia from 09/20/2021 through 09/23/2021 and discharged home on cefdinir and Zithromax with duo nebs. At the time of discharge her white blood cell count had returned to normal. She had not required oxygen during the previous admission. 09/24/2021 She began developing progressive shortness of breath with confusion and was brought back to the emergency room. On arrival she was hypoxic with an O2 sat of 68% on room air and was hypotensive. On work-up, her white blood cell count was elevated at 32,000; chest x-ray showed persistent bilateral pneumonic infiltrates. Her BNP was elevated greater than 14,000 and bilirubin was up to 4.9. She was treated with a bolus of IV fluids for possible sepsis and started on Zosyn and vancomycin. Although her O2 sats improved with fluids and nonrebreather mask, she was working hard to breathe and therefore placed on BiPAP. She also remained hypotensive and was started on Levophed overnight. Consideration was given to a CTA to rule out PE but she was noted to have an iodine allergy. The following morning her hemodynamics had stabilized although she was still on Levophed at 6 mcg/min. BiPAP was removed about 0745 AM and she was maintaining sats in the mid 90s on nasal cannula. She was alert and oriented but not clear about all the events of the previous day. <Olivia Marin - 10/05/21 09:33> Hospital Course Hospital Course: On admission antibiotic regime was escalated to Zosyn and vancomycin. Previous sputum cultures were not helpful and showed only normal respiratory nahomy. Lasix was continued for CHF as a contributing factor to her respiratory failure. Echo on recent admission showed an ejection fraction 25% similar to echo in 2015 and consistent with her history of cardiomyopathy. D-dimer elevation raise concern for PE but due to iodine allergy CTA was not obtained. She was started on therapeutic dose of Lovenox. White blood cell count was elevated at 27,600 with a hemoglobin of 11.9. Blood chemistries did show a low sodium at 129 and potassium 4.2. BUN was 34 and creatinine was 1 on 09/26/2021. Patient was complaining of shortness of breath and dyspnea but was refusing BiPAP. O2 sats were satisfactory and mentation was clear. Diarrhea panel showed C. difficile. Flagyl was added. Patient was also seen by cardiology. Respiratory status deteriorated and consideration was made for intubation. BiPAP was placed on patient. Patient became more responsive and declined intubation. Telemetry at that point showed tachycardia, ventricular paced in the 120s to 140 range. Esmolol drip was initiated to control heart rate but then discontinued due to hypotension. At this time heart rate was around 110 and paced. She was followed by cardiology and pulmonology during her stay. Initially she was given a liter of IV fluids for blood pressure support with caution. Cardiac meds were held due to hypotension. White blood cell count remained elevated. ABGs on BiPAP with FiO2 at 90% revealed pH is 7.21 PCO2 of 41.7 PO2 of 65.9 and a bicarb of 16.2. Patient was restarted back on her digoxin. Patient was given Haldol for agitation. White blood cell count did decrease to 23,400. Ammonia was noted to be normal at 12. Bilirubin had decreased to 2. Venous Doppler study was noted to be negative for DVT. Patient was also started on budesonide neb treatments. O2 sats were satisfactory on BiPAP but she was unable to be weaned from the BiPAP. Sputum and blood cultures were negative. On 09/29/2021 patient's respiratory status appeared to be worsening. She was unresponsive. White blood cell count was 29,000. She was given some IV fluids at this point. She remained in a meta
== END 2021-10-03 14:24 | disposition expired | DRG 871 ==
LOC: ER 19:18 → 2ND 09-25 01:11
PROVIDERS: Internal Medicine; Internal Medicine Pulmonary Disease; Physician Assistant; Admitting Provider Family Medicine; Emergency Provider Emergency Medicine; PCP Family Medicine; Visit Provider Family Medicine
DX: A41.9 Sepsis, unspecified organism (principal); J18.9 Pneumonia, unspecified organism; J96.21 Acute and chronic respiratory failure with hypoxia; J96.22 Acute and chronic respiratory failure with hypercapnia; I42.0 Dilated cardiomyopathy; K76.6 Portal hypertension; E87.1 Hypo-osmolality and hyponatremia; A04.72 Enterocolitis due to Clostridium difficile, not specified as recurrent; N17.9 Acute kidney failure, unspecified; R65.20 Severe sepsis without septic shock; K74.60 Unspecified cirrhosis of liver; K75.81 Nonalcoholic steatohepatitis (NASH); E03.9 Hypothyroidism, unspecified; E11.9 Type 2 diabetes mellitus without complications; Z79.4 Long term (current) use of insulin; Z51.5 Encounter for palliative care; I11.0 Hypertensive heart disease with heart failure; Z87.891 Personal history of nicotine dependence; I25.10 Atherosclerotic heart disease of native coronary artery without angina pectoris; F32.A Depression, unspecified; K21.9 Gastro-esophageal reflux disease without esophagitis; E78.5 Hyperlipidemia, unspecified; Z96.649 Presence of unspecified artificial hip joint; Z95.810 Presence of automatic (implantable) cardiac defibrillator; Z20.822 Contact with and (suspected) exposure to COVID-19; Y95 Nosocomial condition
CPT/HCPCS: 36415; 71045; 74018; 80048; 80053; 80202; 81001; 82140; 82570; 82803; 82962; 83605; 83880; 84145; 84300; 84484; 85007; 85014; 85018; 85025; 85048; 85049; 85378; 87040; 87070; 87077; 87081; 87186; 87205; 87449; 87506; 93005; 93970; 94640; 94660; 94761; 96365; 96367; 99285; C9803; J0456; J2543; J3370; U0003; U0005